=== PATIENT | female | born 1965 | race Caucasian/White ===

== ENCOUNTER 2017-08-04 16:20 | Emergency (ER) | payer MEDICARE, SELFPAY ==
[2017-08-04 16:21] VITALS: BP 157/89; PULSE 73; RESP 16; TEMP 36.7; O2SAT 99; BMI 29.4
--- NOTE | 2017-08-04 16:39 | CT_ITS ---
STUDY: CT ABDOMEN AND PELVIS WITHOUT CONTRAST REASON FOR EXAM: Female, 51 years old. Flank pain RADIATION DOSAGE (If Supplied By Facility): CTDIvol = ( 9.81 ) mGy, DLP = ( 478.01 ) mGycm TECHNIQUE: Transaxial images were obtained from the lower chest to the upper thighs without oral contrast, and without intravenous contrast. Sagittal and coronal images were reconstructed. Individualized dose optimization techniques were used for this CT. COMPARISON: June 30, 2016 FINDINGS: There is minimal dependent atelectasis in both lung bases. There is no pleural effusion. The heart is normal in size. The liver is unremarkable. The gallbladder and biliary ducts are unremarkable. The spleen is unremarkable. 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 The adrenal glands are unremarkable. The right kidney is unremarkable. There is no dilatation of the collecting system in the right kidney. The left kidney is unremarkable. There is no dilatation of the collecting system in the left kidney. There is a small hiatal hernia. The small bowel is unremarkable. The colon is unremarkable. The appendix is visualized and appears normal. The aorta and branch vessels are unremarkable. The IVC is unremarkable. There are small lymph nodes in the right lower quadrant. There are small lymph nodes in the mesentery. There is no free fluid in the abdomen. The urinary bladder is unremarkable. The uterus is normal in size. There are coarse calcifications in the uterus consistent with small degenerating fibroids. There are no abnormal masses in the adnexal regions. The soft tissues are unremarkable. There are mild degenerative changes in the visualized spine. There is stable minimal anterior displacement of L5 on S1 with defects in the pars at this level. There is marked disc space narrowing at this level. There is minimal dextroscoliosis of the lumbar spine. CT/Abdomen/Pelvis without Cont IMPRESSION: There is no evidence of renal stones or urinary tract dilatation. There are no acute bowel abnormalities. There is no ascites. There may be mild mesenteric adenitis in the right lower quadrant. 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 There are marked degenerative disc changes at this level. There is minimal dextroscoliosis of the lumbar spine. Electronically Signed: Mis Whitaker MD at 18:15 EST Tel Direct: [phone], Service support ,
--- NOTE | 2017-08-04 16:43 | ED.DCSUM_ITS ---
- ER Visit Summary Date of Service: 08/04/17 Chief Complaint: [] Left flank pain urinary symptoms for over a week History of Present Illness: The patient is a 51 F [] diabetes chronic back pain , reports that she has had urinary frequency for over a week she was seen by her family physicians put on Bactrim she has had left flank pain the Bactrim has not helped the back pain or the urinary frequency she indicates she has history of pyelonephritis in the past, and or kidney stones. Her family reports she has no history of kidney stones and she has chronic recurring back pain of unspecified causes and she has been very thoroughly evaluated for the back pain. No fever no cough no trauma no neurologic symptoms #6 paresthesias or bowel bladder habits have been normal he is able to stand and walk without difficulty her diabetes has been stable she is not on a diabetic diet she is taking her insulin and metformin Physical Examination: [] Points to her left flank her vitals are normal head neck chest unremarkable abdomen soft nontender upper lower extremities unremarkable the midline back is nontender she is complaining of pain to the left flank the abdomen Apsley soft nontender upper lower extremities unremarkable full range of motion she is able to stand and walk without difficulty she can heel toe raise and knee bend without difficulty there is no neurologic abnormalities, she indicates she is constantly running to the bathroom to urinate Test Results: [] Emergency Department Course and Treatment: [] Given all the above labs UA urine culture CT flank she has been on sulfa Her studies are generally unremarkable including CT of the flank that shows nothing acute, we had to reconstruct her lumbar spine images they were also showing DJD nothing acute, her labs are unremarkable except her UA does show signs of UTI and she has been on the Bactrim since , at this time I will switch her to oral Cipro she will be given [address] tablets to use only if Tylenol is ineffective and she will follow-up with her family doctor for further management and she understands that the urine culture is pending and the concept of pyelonephritis, we further cautioned her to stick to a diabetic diet Treatment Plan: [] Disposition: [] Home stable Impression: [] Flank pain suspect related UTI diabetes This note was generated with Big Screen Toolsation software. It may contain incorrect words, spelling, and punctuation that were not noted in review of the chart prior to signing ED Disposition - Plan for ED Patient: Chief Complaint: Back Referrals: Tom Clayton Jr., MD [Primary Care Provider] -
[2017-08-04] MEDS: Ondansetron 4 MG/2 ML Vial IV (17:06)
[2017-08-04 17:10] LABS: Absolute Lymphocyte Count 1.85 X10^3/ul (0.83-4.51); Absolute Neutrophil Count 2.9 X10^3/uL (2.0-7.7); Basophil# 0.03 X10^3/uL; Basophil% 0.6 % (0-1); Eosinophil# 0.06 X10^3/uL; Eosinophils% 1.1 % (0-5); Hemoglobin 11.9 g/dl (12.0-15.0); Lymphocyte # 1.85 X10^3/ul (4.0); Lymphocyte % 35.2 % (19-41); Mean Corp Hgb Conc 31.3 g/gl (32-36); Mean Corpuscular Hgb 27.9 pg (27.0-32.0); Mean Platelet Vol. 9.5 fl (6.2-12.0); Monocyte# 0.42 X10^3/uL; Neutrophil % 55.1 % (47-70); Platelet Count 285 K/mm3 (150-450); RBC Distribution Width CV 15.1 % (11.6-14.6); RBC Distribution Width SD 48.8 fl (35.1-43.9); Red Blood Count 4.27 M/mm3 (4.2-5.4); White Blood Count 5.3 K/mm3 (4.4-11.0)
[2017-08-04] MEDS: 0.9% Normal Saline 1,000 ML 250 ML IV (17:10)
[2017-08-04 17:11] LABS: POSITIVE COUNT NO; POSITIVE DIFFERENTIAL NO; POSITIVE MORPHOLOGY NO
[2017-08-04 17:28] LABS: Pregnancy, Serum, hCG Quali. NEGATIVE Negative (0-9 Nonpreg)
[2017-08-04 18:06] LABS: Color, Urine Yellow (Yellow); Glucose, Dipstick Normal (Normal); Ketone-Dipstick Negative (Negative); Leukocyte Esterase-Dipstick 500 /ul (Negative); Nitrite-Dipstick Negative (Negative); Occult Blood-Urine 10 /ul (Negative); Protein-Dipstick Negative (Negative); Urine Bilirubin Dipstick Negative (Negative); Urine Clarity Sl. Cloudy (Clear); Urine Urobilinogen Normal (Normal)
[2017-08-04 18:26] LABS: Anion Gap 8 (5-15); BUN 15 mg/dL (7-18); BUN/Creat Ratio 19.8 RATIO (10-20); Calcium,Total 9.5 mg/dL (8.5-10.1); Chloride 107 mmol/L (98-107); Creatinine, Serum 0.76 mg/dL (0.55-1.02); EST Glomerular Filtration Rate 85 mL/min (>60); Est Glom Filt Rate - Afr Amer 103 mL/min (>60); Estimated Creatinine Clearance 75.62 ml/min; Glucose 98 mg/dL (70-110); Potassium 3.9 mmol/L (3.5-5.1); Sodium Level 142 mmol/L (136-145)
[2017-08-04 18:28] LABS: Bacteria 1+ /hpf (None Seen); Red Blood Cells-Urine 0-5 SEEN /hpf (0-5); Squamous Epithelial Cells - UA 5-10 SEEN /hpf (5-10); White Blood Cells 10-25 SEEN /hpf (0-5)
[2017-08-04 18:29] LABS: Mucous, Urine RARE /hpf (<or=2+)
[2017-08-04 18:30] LABS: Yeast-Urine RARE /hpf (None Seen)
--- NOTE | 2017-08-04 18:41 | ED.DEP ---
ED Disposition - Plan for ED Patient: Chief Complaint: Back Instructions: ED Kidney Infec Female Prescriptions: Hydrocodone Bitart/Apap 5-325 [[facility] 5/325] 1 - 2 tab PO Q4H PRN PRN #7 tab PRN Reason: Pain Ciprofloxacin [Cipro] 500 mg PO BID #14 tab Referrals: Tom Clayton Jr., MD [Primary Care Provider] -
[2017-08-04 19:16] VITALS: BP 139/94; PULSE 81; RESP 17; O2SAT 98
--- NOTE | 2017-08-04 19:16 | ED.RN ---
IV DC'ED, CATHETER INTACT, SMALL GAUZE DRESSING PLACED. DISCHARGE INSTRUCTIONS GIVEN TO AND REVIEWED WITH PATIENT, PATIENT DENIES QUESTIONS OR CONCERNS AND VOICES UNDERSTANDING OF DISCHARGE INSTRUCTIONS. PT AMBULATES OUT OF ROOM WITHOUT DIFFICULTY.
== END 2017-08-04 19:17 | disposition home or self-care (01) ==
LOC: ED 16:57
PROVIDERS: Emergency Provider Emergency Medicine; Family Provider Internal Medicine; PCP Internal Medicine
DX: R10.9 Unspecified abdominal pain (principal); E11.9 Type 2 diabetes mellitus without complications; N12 Tubulo-interstitial nephritis, not specified as acute or chronic; M47.9 Spondylosis, unspecified; Z79.4 Long term (current) use of insulin
CPT/HCPCS: 74176; 80048; 81001; 82009; 84703; 85025; 87086; 87088; 96361; 96374; 96375; 96376; 99284; J7030; A4216; J2405

== ENCOUNTER → 2017-08-06 12:20 | Outpatient (CLI) | payer MEDICARE, SELFPAY ==
--- NOTE | 2017-08-06 12:25 | HPBI_ITS ---
MAMMOGRAPHY - BILATERAL SCREENING REASON FOR EXAM: Female, 51 years old. Routine annual screening examination. PERTINENT HISTORY: Non-contributory. TECHNIQUE: Digital bilateral breast saloni (3D mammographic acquisition) in the CC and MLO projections. 2-D mediolateral oblique (MLO) and craniocaudad (CC) views of both breasts were obtained. CAD: Full Field Digital Mammography with Computer Added Detection was performed. COMPARISON: Comparison is made with prior study dated October 22, 2014 and September 16, 2012. FINDINGS: Breast Composition: The breasts are heterogeneously dense, which may obscure small masses. There are no dominant masses or suspicious calcifications. No other significant abnormalities are identified. There has been no significant change since the prior study. HPBI/SCREENING MAMM (CAD), BILAT IMPRESSION: Stable bilateral screening mammogram. Yearly follow-up mammogram recommended. (A) ASSESSMENT CATEGORY: BIRADS Category 1: Negative. A letter regarding these results will be sent to the patient by the facility within 30 days. Approximately 10% of breast cancers are not detected by mammography. A normal mammogram should not delay biopsy of a clinically suspicious abnormality. [id number] Electronically Signed: Prosper Soliman MD at 14:35 EST Tel [phone], Service support ,
== END ==
PROVIDERS: Family Provider Internal Medicine; PCP Internal Medicine
DX: Z12.31 Encounter for screening mammogram for malignant neoplasm of breast (principal)
CPT/HCPCS: 77063; 77067

== ENCOUNTER → 2017-08-21 10:09 | Outpatient (CLI) | payer MEDICARE, SELFPAY ==
[2017-08-21 10:19] LABS: Mucous, Urine 0 SEEN /hpf (<or=2+); Red Blood Cells-Urine 0 SEEN /hpf (0-5)
[2017-08-21 11:09] LABS: Color, Urine Yellow (Yellow); Glucose, Dipstick 1000 mg/dl (Normal); Ketone-Dipstick Negative (Negative); Leukocyte Esterase-Dipstick 100 /ul (Negative); Nitrite-Dipstick Negative (Negative); Occult Blood-Urine 10 /ul (Negative); Protein-Dipstick 15 mg/dl (Negative); Urine Bilirubin Dipstick Negative (Negative); Urine Clarity Sl. Cloudy (Clear); Urine Urobilinogen Normal (Normal)
[2017-08-21 11:27] LABS: Bacteria RARE /hpf (None Seen); Squamous Epithelial Cells - UA 0-5 SEEN /hpf (5-10); White Blood Cells 0-5 SEEN /hpf (0-5); Yeast-Urine RARE /hpf (None Seen)
== END ==
PROVIDERS: Family Provider Internal Medicine; PCP Internal Medicine; Visit Provider Internal Medicine
DX: R39.9 Unspecified symptoms and signs involving the genitourinary system (principal)
CPT/HCPCS: 81001

== ENCOUNTER 2017-10-27 11:29 | Emergency (ER) | payer MEDICARE, SELFPAY ==
[2017-10-27 11:31] VITALS: BP 134/68; PULSE 106; RESP 17; TEMP 36.9; O2SAT 97; BMI 27.8
--- NOTE | 2017-10-27 11:48 | ED.DCSUM_ITS ---
- ER Visit Summary Date of Service: 10/27/17 Chief Complaint: High blood sugar History of Present Illness: The patient is a [address] Tom Clayton in [facility] for endocrinology. She reports that her blood sugars been elevated since yesterday. She took this morning and it was 438. She took 11 units of Humalog at 8 AM. Patient reports that she has frequent urination with small volumes and itching. Her review of systems is otherwise negative. Physical Examination: Vitals: Stable. Afebrile. General: Well-nourished and well-developed. Head: Normocephalic atraumatic. Neck: Supple, no lymphadenopathy. No JVD. Nontender. Cardiovascular: Regular rate and rhythm. No murmurs. Respiratory: No respiratory distress. Clear to auscultation bilaterally. Abdominal: Soft, nontender, nondistended, normal bowel sounds. No guarding, rebound, or peritoneal signs. Back: Nontender. Extremities: Nontender, no edema. Skin: Normal color, no rash. Neurologic: Alert and oriented ?3. Cranial nerves II through XII are intact. Normal strength and sensation. Psych: Normal affect. Test Results: CBC is normal. Chem-7 is marked for glucose of 253. UA is negative. Emergency Department Course and Treatment: Patient had an IV placed. She is given 2 L of normal saline. She is resting comfortably. Treatment Plan: Patient will be discharged instructions to continue her diabetic treatment and follow-up with her comb winder as previously scheduled. Return to the emergency department for any worsening symptoms. Disposition: To home in improved and stable condition. Impression: 1. Hyperglycemia. 2. Type 2 diabetes mellitus. This note was generated with [employer] dictation software. It may contain incorrect words, spelling, and punctuation that were not noted in review of the chart prior to signing ED Disposition - Plan for ED Patient: Chief Complaint: Hyperglycemia Instructions: ED Hyperglycemia Diabetic Referrals: Tom Clayton Jr., MD [Primary Care Provider] - Keep Radha appointment
[2017-10-27 12:10] LABS: Color, Urine Yellow (Yellow); Glucose, Dipstick 1000 mg/dl (Normal); Ketone-Dipstick Negative (Negative); Leukocyte Esterase-Dipstick 25 /ul (Negative); Mucous, Urine 0 SEEN /hpf (<or=2+); Nitrite-Dipstick Negative (Negative); Occult Blood-Urine Negative /ul (Negative); Protein-Dipstick 30 mg/dl (Negative); Red Blood Cells-Urine 0 SEEN /hpf (0-5); Urine Bilirubin Dipstick Negative (Negative); Urine Clarity Clear (Clear); Urine Urobilinogen Normal (Normal)
[2017-10-27 12:10] LABS: Bedside Glucose 259 mg/dL (70-110)
[2017-10-27 12:21] LABS: Bacteria RARE /hpf (None Seen); Squamous Epithelial Cells - UA 0-5 SEEN /hpf (5-10); White Blood Cells 0-5 SEEN /hpf (0-5)
[2017-10-27] MEDS: 0.9% Normal Saline 1,000 ML 1000 ML IV (12:24)
[2017-10-27 12:36] LABS: Absolute Lymphocyte Count 1.17 X10^3/ul (0.83-4.51); Absolute Neutrophil Count 3.6 X10^3/uL (2.0-7.7); Basophil# 0.02 X10^3/uL; Basophil% 0.4 % (0-1); Eosinophil# 0.02 X10^3/uL; Eosinophils% 0.4 % (0-5); Hematocrit 39.8 % (37-47); Hemoglobin 12.6 g/dl (12.0-15.0); Lymphocyte # 1.17 X10^3/ul (4.0); Lymphocyte % 22.6 % (19-41); Mean Corp Hgb Conc 31.7 g/gl (32-36); Mean Corpuscular Hgb 27.6 pg (27.0-32.0); Mean Corpuscular Volume 87.3 fL (81-99); Mean Platelet Vol. 9.2 fl (6.2-12.0); Monocyte# 0.35 X10^3/uL; Monocyte% 6.8 % (0-10); Neutrophil # 3.61 X10^3/uL (2.7-7.7); Neutrophil % 69.8 % (47-70); Platelet Count 297 K/mm3 (150-450); RBC Distribution Width CV 14.2 % (11.6-14.6); RBC Distribution Width SD 44.9 fl (35.1-43.9); Red Blood Count 4.56 M/mm3 (4.2-5.4); White Blood Count 5.2 K/mm3 (4.4-11.0)
[2017-10-27 12:38] LABS: POSITIVE COUNT NO; POSITIVE DIFFERENTIAL NO; POSITIVE MORPHOLOGY NO
--- NOTE | 2017-10-27 12:46 | ED.RN ---
AFTER FLUIDS D/C FOR LT AC, SWELLING HAS DECREASED, PT DOES NOT C/O PAIN AT THE SITE AT THIS TIME.
[2017-10-27 12:57] LABS: Anion Gap 6 (5-15); BUN 16 mg/dL (7-18); BUN/Creat Ratio 16.6 RATIO (10-20); Calcium,Total 9.1 mg/dL (8.5-10.1); Chloride 103 mmol/L (98-107); Creatinine, Serum 0.96 mg/dL (0.55-1.02); EST Glomerular Filtration Rate 65 mL/min (>60); Est Glom Filt Rate - Afr Amer 78 mL/min (>60); Glucose 253 mg/dL (74-106); Potassium 4.3 mmol/L (3.5-5.1); Sodium Level 136 mmol/L (136-145)
[2017-10-27 13:24] VITALS: BP 133/76; PULSE 89; RESP 16; O2SAT 99
== END 2017-10-27 13:27 | disposition home or self-care (01) ==
PROVIDERS: Emergency Provider Emergency Medicine; Family Provider Internal Medicine; PCP Internal Medicine
DX: E11.65 Type 2 diabetes mellitus with hyperglycemia (principal); Z79.4 Long term (current) use of insulin
CPT/HCPCS: 80048; 81001; 82962; 85025; 96360; 99284; J7030; A4216

== ENCOUNTER 2017-11-02 15:13 | Emergency (ER) | payer OTHER, SELFPAY ==
[2017-11-02 15:14] VITALS: BP 163/84; PULSE 101; RESP 20; TEMP 36.9; O2SAT 99; BMI 28.3
--- NOTE | 2017-11-02 15:32 | RAD_ITS ---
STUDY: X-RAY CHEST REASON FOR EXAM: Female, 52 years old. Hyperglycemia. TECHNIQUE: AP and lateral views of the chest. COMPARISON: August 23, 2016 FINDINGS: There is no focal consolidation visualized. There is a oblique linear density projecting over the left lung base that may be artifactual. Normal size heart. Normal mediastinum and nikolay. Normal visualized pulmonary arteries. Normal visualized aortic arch and descending thoracic aorta. There are diffuse degenerative changes of the visualized thoracic spine. Normal visualized ribs, clavicles, and shoulders. There is no demonstrated abnormality of the visualized soft tissue structures of the upper abdomen. RAD/Chest PA and Lateral IMPRESSION: No acute cardiopulmonary process. Electronically Signed: Tracey Mendoza MD at 17:40 EDT Tel , Service support ,
--- NOTE | 2017-11-02 15:32 | EKG12_ITS ---
Test Reason : HYPERGLYCEMIA Blood Pressure : / mmHG Vent. Rate : 098 BPM Atrial Rate : 098 BPM P-R Int : 144 ms QRS Dur : 078 ms QT Int : 338 ms P-R-T Axes : 039 028 061 degrees QTc Int : 431 ms Normal sinus rhythm Normal ECG Confirmed by VIRGILIO SCHAFER ([id number]), editor city NESTOR TUCKER ([id number]) on 11/06/2017 4:00:22 PM Referred By: CD Confirmed By:VIRGILIO SCHAFER
--- NOTE | 2017-11-02 15:33 | ED.VISSUMM ---
- ER Visit Summary Date of Service: 11/02/17 Chief Complaint: High blood glucose History of Present Illness: The patient is a 52 F with a history of diabetes type 2, insulin-dependent, presents with elevated blood glucose greater than 400 for 3 days as well as fatigue. No recent falls or head trauma. She states that the last time this happened, she had a urinary tract infection. She has no specific complaints at this time other than increased thirst and urination. Physical Examination: Mucous membranes are dry. Neck is supple. Heart tones are regular without murmur. Lungs are clear bilaterally. Abdomen is soft and nontender. No focal or lateralizing neuro findings. Speech is clear. NIH is 0. Test Results: Glucose was only 274 here. Anion gap is normal. No ketones in the serum. She was given IV fluids and feels much better. Two-view chest x-ray was interpreted independently by me is negative for acute infiltrate. She has a normal neurologic and mental status examination. She is comfortable going home and following up with her wildland fire operations specialist. Emergency Department Course and Treatment: IV fluids and laboratory studies Treatment Plan: Follow up closely with endocrinology, return if worse Disposition: Home stable Impression: Initial encounter for hyperglycemia with a history of type 2 diabetes This note was generated with [employer] dictation software. It may contain incorrect words, spelling, and punctuation that were not noted in review of the chart prior to signing ED Disposition - Plan for ED Patient: Chief Complaint: Hyperglycemia Diagnosis: Hyperglycemia Instructions: ED Hyperglycemia Diabetic Referrals: Tom Clyaton Jr., MD [Primary Care Provider] -
--- NOTE | 2017-11-02 15:45 | ED.RN ---
FAMILY REFUSES TO KEEP DOOR CLOSED.
[2017-11-02 15:55] LABS: Bedside Glucose 290 mg/dL (70-110)
[2017-11-02 16:14] LABS: Absolute Lymphocyte Count 1.76 X10^3/ul (0.83-4.51); Absolute Neutrophil Count 3.6 X10^3/uL (2.0-7.7); Basophil# 0.03 X10^3/uL; Basophil% 0.5 % (0-1); Eosinophil# 0.05 X10^3/uL; Eosinophils% 0.9 % (0-5); Hematocrit 40.3 % (37-47); Hemoglobin 12.5 g/dl (12.0-15.0); Lymphocyte # 1.76 X10^3/ul (4.0); Lymphocyte % 30.2 % (19-41); Mean Corpuscular Hgb 27.3 pg (27.0-32.0); Mean Platelet Vol. 9.6 fl (6.2-12.0); Monocyte% 6.9 % (0-10); Neutrophil # 3.57 X10^3/uL (2.7-7.7); Neutrophil % 61.3 % (47-70); Platelet Count 324 K/mm3 (150-450); RBC Distribution Width CV 14.7 % (11.6-14.6); Red Blood Count 4.58 M/mm3 (4.2-5.4); White Blood Count 5.8 K/mm3 (4.4-11.0)
[2017-11-02] MEDS: 0.9% Normal Saline 1,000 ML 999 ML IV (16:32)
[2017-11-02 16:33] LABS: POSITIVE COUNT NO; POSITIVE DIFFERENTIAL NO; POSITIVE MORPHOLOGY NO
--- NOTE | 2017-11-02 16:38 | ED.RN ---
FAMILY CONTINUES TO COMPLAIN ABOUT STAFF AT [facility].
[2017-11-02 16:42] LABS: Anion Gap 5 (5-15); BUN 10 mg/dL (7-18); BUN/Creat Ratio 10.9 RATIO (10-20); Calcium,Total 9.1 mg/dL (8.5-10.1); Chloride 104 mmol/L (98-107); Creatinine, Serum 0.92 mg/dL (0.55-1.02); EST Glomerular Filtration Rate 68 mL/min (>60); Est Glom Filt Rate - Afr Amer 82 mL/min (>60); Estimated Creatinine Clearance 61.77 ml/min; Glucose 274 mg/dL (74-106); Potassium 4.2 mmol/L (3.5-5.1); Sodium Level 138 mmol/L (136-145)
[2017-11-02 17:08] LABS: Bacteria 0 SEEN /hpf (None Seen); Mucous, Urine 0 SEEN /hpf (<or=2+); Red Blood Cells-Urine 0 SEEN /hpf (0-5)
[2017-11-02 17:09] LABS: Color, Urine Yellow (Yellow); Glucose, Dipstick 1000 mg/dl (Normal); Ketone-Dipstick Negative (Negative); Leukocyte Esterase-Dipstick 500 /ul (Negative); Nitrite-Dipstick Negative (Negative); Occult Blood-Urine Negative /ul (Negative); Protein-Dipstick 15 mg/dl (Negative); Urine Bilirubin Dipstick Negative (Negative); Urine Clarity Sl. Cloudy (Clear); Urine Urobilinogen Normal (Normal)
[2017-11-02 17:21] LABS: Squamous Epithelial Cells - UA 10-25 SEEN /hpf (5-10); White Blood Cells 5-10 SEEN /hpf (0-5)
[2017-11-02 18:07] VITALS: BP 136/89; PULSE 87; RESP 16; O2SAT 98
== END 2017-11-02 18:24 | disposition home or self-care (01) ==
PROVIDERS: Emergency Provider Emergency Medicine; Family Provider Internal Medicine; PCP Internal Medicine
DX: E11.65 Type 2 diabetes mellitus with hyperglycemia (principal); Z79.4 Long term (current) use of insulin; I10 Essential (primary) hypertension; E78.00 Pure hypercholesterolemia, unspecified; Z79.891 Long term (current) use of opiate analgesic; Z79.899 Other long term (current) drug therapy
CPT/HCPCS: 71046; 80048; 81001; 82009; 82962; 85025; 93005; 96360; 96361; 99285; J7030; A4216

== ENCOUNTER 2018-01-31 13:44 | Emergency (ER) | payer OTHER, SELFPAY ==
[2018-01-31 13:45] VITALS: BP 137/81; PULSE 93; RESP 18; TEMP 37.1; O2SAT 98; BMI 26.5
--- NOTE | 2018-01-31 13:51 | EKG12_ITS ---
Test Reason : C OTHER Blood Pressure : / mmHG Vent. Rate : 088 BPM Atrial Rate : 088 BPM P-R Int : 136 ms QRS Dur : 078 ms QT Int : 366 ms P-R-T Axes : 042 021 050 degrees QTc Int : 442 ms Normal sinus rhythm Normal ECG Confirmed by VIRIDIANA REY, ALBERTO ([id number]), associate entertainment editor NESTOR TUCKER ([id number]) on 02/05/2018 2:46:58 PM Referred By: MIKEL Confirmed By:ALBERTO KEMP MD
--- NOTE | 2018-01-31 14:45 | ED.DCSUM_ITS ---
- ER Visit Summary Date of Service: 01/31/18 Chief Complaint: Bilateral lower rib upper abdominal pain after vomiting History of Present Illness: The patient is a 52 F who presents with bilateral lower rib upper abdominal pain after vomiting several times this past Sunday. There is no hematemesis or melena. She denies any URI symptoms. She denies chest discomfort. She denies food intolerance. She denies radiation of the pain. She denies shortness of breath or difficulty breathing. She is taken 1 Advil without improvement. She states nothing makes it worse however on exam she has pain when asked to twist and palpation. She denies dysuria, frequency, urgency or hematuria. There is no history of direct trauma. She has not noted a rash. Physical Examination: Vital signs are remarkable for an elevated blood pressure 137/81. HEENT exam is unremarkable. Heart is regular without murmur, gallop or rub. S1 and S2 are normal. Lungs are clear to auscultation with good movement of air bilaterally. There is reproducible low or rib cage pains upper abdominal musculoskeletal pain. Pain is worse with palpation and rotation. Negative Roberts sign. Bowel sounds are present normal. There is no guarding or rebound tenderness. There is no CVA tenderness noted. There is no skin lesions or any lesions to suggest herpes varicella-zoster. She has not no evidence of trauma. Test Results: EKG was obtained per nursing protocol and is normal. Emergency Department Course and Treatment: Patient's history and physical exam is consistent with muscle strain from vomiting. Treatment Plan: Ibuprofen or Tylenol for pain and ice Disposition: Discharged home with mother Impression: Chest wall/abdominal wall strain bilaterally secondary to vomiting This note was generated with [employer] dictation software. It may contain incorrect words, spelling, and punctuation that were not noted in review of the chart prior to signing ED Disposition - Plan for ED Patient: Disposition: Home or Assisted Living Chief Complaint: Chest Other Instructions: ED Strain Chest Wall Referrals: Tom Clayton Jr., MD [Primary Care Provider] - 1 Week if not improving Additional Instructions: Take 3 or 4 ibuprofen tablets every 8 hours for the next 2-3 days for pain. Apply ice 20-30 minutes at a time 6-8 times a day.
[2018-01-31 14:47] VITALS: BP 135/74; PULSE 104; RESP 19; O2SAT 96
[2018-01-31] MEDS: Ibuprofen 600 MG Tablet PO (14:51)
== END 2018-01-31 15:04 | disposition home or self-care (01) ==
PROVIDERS: Emergency Provider Emergency Medicine; Family Provider Internal Medicine; PCP Internal Medicine
DX: S39.011A Strain of muscle, fascia and tendon of abdomen, initial encounter (principal); S29.011A Strain of muscle and tendon of front wall of thorax, initial encounter; R11.10 Vomiting, unspecified; E66.9 Obesity, unspecified; E11.9 Type 2 diabetes mellitus without complications; E78.00 Pure hypercholesterolemia, unspecified; F41.9 Anxiety disorder, unspecified; Z79.4 Long term (current) use of insulin; Z79.899 Other long term (current) drug therapy; X58.XXXA Exposure to other specified factors, initial encounter; Y93.89 Activity, other specified; Y92.89 Other specified places as the place of occurrence of the external cause; Y99.8 Other external cause status
CPT/HCPCS: 93005; 99283

== ENCOUNTER 2018-03-01 12:26 | Emergency (ER) | payer OTHER, SELFPAY ==
[2018-03-01 12:27] VITALS: BP 125/70; PULSE 105; RESP 16; TEMP 37; O2SAT 99; BMI 26.2
--- NOTE | 2018-03-01 12:51 | ED.VISSUMM ---
- ER Visit Summary Date of Service: 03/01/18 Chief Complaint: Sore throat, runny nose, cough History of Present Illness: The patient is a 52 F who presents with URI symptoms that started 1 week ago. She denies headache, photophobia sips of her neck. She is coming of nasal congestion runny nose. Does complain of sore throat. She believes she has an inflamed lymph node. There is been no change in voice or difficulty swallowing. She does have a cough. She states occasionally she will see a streak of blood. There is no history of PE or DVT. She denies any leg pain, swelling discoloration. She is on no anticoagulant. She has no risk factors for PE or DVT. Please read written note for complete detail Physical Examination: Vital signs noted and heart rate is 105. She appears no distress. HEENT is remarkable for boggy nasal mucosa with clear drainage. TMs normal. Posterior pharynx without erythema or exudate. Uvula midline. Trachea midline. Is no stridor. There is no cervical lymphadenopathy. Lungs are clear to auscultation with good maneuver bilaterally heart is regular without murmur, gallop or rub. There is no asymmetry, swelling, discoloration, leg vein distention, palpable cords or tenderness along the distribution of the deep venous system. Test Results: None Emergency Department Course and Treatment: Patient's presentation is consistent with a viral infection that started 1 week ago. Both the patient and mother were informed that she may be ill for another 7-10 days. Because she has been coughing she may have popped a blood vessel and reason she is occasionally seen streak of blood in her sputum. Treatment Plan: Symptomatic Disposition: Discharged home with mother Impression: 1. Acute viral upper restaurant infection 2. Hemoptysis secondary #1 This note was generated with [employer] dictation software. It may contain incorrect words, spelling, and punctuation that were not noted in review of the chart prior to signing ED Disposition - Plan for ED Patient: Disposition: Home or Assisted Living Chief Complaint: Sore Throat Instructions: ED URI Viral, ED Hemoptysis Referrals: Tom Clayton Jr., MD [Primary Care Provider] - 10-14 Days if not better
[2018-03-01 13:30] VITALS: PULSE 84; RESP 22; O2SAT 97
--- NOTE | 2018-03-01 13:32 | ED.RN ---
THIS NURSE REVIEWED D/C INSTRUCTIONS WITH PT AND MOTHER. BOTH VERBALIZED UNDERSTANDING OF INSTRUCTIONS. PT DENIES FURTHER NEEDS OR QUESTIONS AT THIS TIME. PT AMBULATES FROM ROOM ON OWN WITHOUT ASSISTANCE FROM STAFF
== END 2018-03-01 13:33 | disposition home or self-care (01) ==
PROVIDERS: Emergency Provider Emergency Medicine; Family Provider Internal Medicine; PCP Internal Medicine
DX: J06.9 Acute upper respiratory infection, unspecified (principal); R04.2 Hemoptysis; E11.9 Type 2 diabetes mellitus without complications; I10 Essential (primary) hypertension; E78.00 Pure hypercholesterolemia, unspecified; Z79.4 Long term (current) use of insulin; Z79.899 Other long term (current) drug therapy
CPT/HCPCS: 99282

== ENCOUNTER 2018-04-10 15:59 | Emergency (ER) | payer MEDICARE, SELFPAY ==
[2018-04-10 16:00] VITALS: BP 129/72; PULSE 98; RESP 16; TEMP 36.7; O2SAT 98; BMI 27.0
--- NOTE | 2018-04-10 16:17 | ED.VISSUMM ---
- ER Visit Summary Date of Service: 04/10/18 Chief Complaint: Elevated blood sugars History of Present Illness: The patient is a 52 F diabetes. Patient states that she has had elevated blood sugars intermittently about the week. She denies any nausea, vomiting, and she denies any fever. She denies any headache, chest pain, shortness of breath. They had previously attempted her on a insulin drip when she had a reaction to and they had to DC. She denies any recent dietary or medication changes. Physical Examination: Middle-aged female no acute distress. Vital signs are stable afebrile. She does not look septic toxic or in acute distress. HEENT exam unremarkable. Moist mucous membranes. Neck nontender no lymphadenopathy. Lungs clear to auscultation bilaterally. Heart regular rhythm no murmur. Abdomen soft nontender. Normal bowel sounds. No peritoneal signs. She is moving all 4 extremities. No edema. Neurologically she is awake and alert with no focal motor deficits. Back nontender. Test Results: With a white count of 5. Hemoglobin of 12. Electrolytes unremarkable gap of 6. Creatinine is 0.9. Glucose 159. Serum acetone negative. Emergency Department Course and Treatment: Diabetic with poorly controlled blood sugars in the last week. No systemic symptoms. She will be evaluated to make sure she is not in DKA which I think is very unlikely clinically. 17:30. She and family felt comfortable with her being discharged to home. Treatment Plan: [] Watch blood sugars closely. Take medications as prescribed. Disposition: Discharge Impression: Acute hyperglycemia with a history of insulin dependent diabetes This note was generated with K[employer]uru dictation software. It may contain incorrect words, spelling, and punctuation that were not noted in review of the chart prior to signing ED Disposition - Plan for ED Patient: Chief Complaint: Hyperglycemia Referrals: Tom Clayton Jr., MD [NON-STAFF] -
[2018-04-10] MEDS: 0.9% Normal Saline 1,000 ML 1000 ML IV (16:34)
[2018-04-10 16:51] LABS: Bedside Glucose 165 mg/dL (70-110)
[2018-04-10 17:17] LABS: Absolute Lymphocyte Count 1.26 X10^3/ul (0.83-4.51); Absolute Neutrophil Count 3.4 X10^3/uL (2.0-7.7); Basophil# 0.03 X10^3/uL; Basophil% 0.6 % (0-1); Eosinophil# 0.05 X10^3/uL; Hematocrit 38.4 % (37-47); Hemoglobin 12.2 g/dl (12.0-15.0); Lymphocyte # 1.26 X10^3/ul (4.0); Lymphocyte % 24.4 % (19-41); Mean Corp Hgb Conc 31.8 g/gl (32-36); Mean Corpuscular Hgb 27.4 pg (27.0-32.0); Mean Corpuscular Volume 86.1 fL (81-99); Mean Platelet Vol. 9.9 fl (6.2-12.0); Monocyte# 0.41 X10^3/uL; Monocyte% 7.9 % (0-10); Neutrophil # 3.41 X10^3/uL (2.7-7.7); Neutrophil % 65.9 % (47-70); Platelet Count 316 K/mm3 (150-450); RBC Distribution Width CV 16.5 % (11.6-14.6); Red Blood Count 4.46 M/mm3 (4.2-5.4); White Blood Count 5.2 K/mm3 (4.4-11.0)
[2018-04-10 17:18] LABS: Anion Gap 6 (5-15); BUN 27 mg/dL (7-18); BUN/Creat Ratio 28.7 RATIO (10-20); Calcium,Total 8.8 mg/dL (8.5-10.1); Chloride 108 mmol/L (98-107); Creatinine, Serum 0.94 mg/dL (0.55-1.02); EST Glomerular Filtration Rate 66 mL/min (>60); Est Glom Filt Rate - Afr Amer 80 mL/min (>60); Estimated Creatinine Clearance 60.45 ml/min; Glucose 159 mg/dL (74-106); Potassium 3.9 mmol/L (3.5-5.1); Sodium Level 141 mmol/L (136-145)
[2018-04-10 17:25] LABS: POSITIVE COUNT NO; POSITIVE DIFFERENTIAL NO; POSITIVE MORPHOLOGY NO
--- NOTE | 2018-04-10 17:34 | ED.DEP ---
ED Disposition - Plan for ED Patient: Disposition: Home or Assisted Living Chief Complaint: Hyperglycemia Instructions: ED Hyperglycemia Diabetic Referrals: Tom Clayton Jr., MD [NON-STAFF] - 3-5 Days if not improving Additional Instructions: Plenty of fluids and rest. Watch blood sugars closely. Follow-up with your doctor.
[2018-04-10 17:43] VITALS: BP 133/69; PULSE 72; RESP 15; O2SAT 98
== END 2018-04-10 17:44 | disposition home or self-care (01) ==
PROVIDERS: Emergency Provider Emergency Medicine; Family Provider Family Medicine; PCP Family Medicine
DX: E11.65 Type 2 diabetes mellitus with hyperglycemia (principal); Z79.82 Long term (current) use of aspirin; Z79.4 Long term (current) use of insulin; Z79.84 Long term (current) use of oral hypoglycemic drugs; Z79.899 Other long term (current) drug therapy
CPT/HCPCS: 80048; 82009; 82962; 85025; 99283; J7030

== ENCOUNTER 2018-04-29 23:44 | Emergency (ER) | payer MEDICARE, SELFPAY ==
[2018-04-29 23:47] VITALS: BP 129/97; PULSE 100; RESP 18; TEMP 36.8; O2SAT 98; BMI 26.9
[2018-04-30] LABS: Bedside Glucose 229 mg/dL (70-110)
--- NOTE | 2018-04-30 00:11 | ED.VISSUMM ---
- ER Visit Summary Date of Service: 04/30/18 Chief Complaint: Hyperglycemia History of Present Illness: The patient is a 52 F presenting with elevated blood sugar. Patient states her blood sugar has been running 200-300 today. She has urinary frequency. She denies nausea or vomiting. Denies abdominal pain. Denies chest pain or shortness of breath. She otherwise feels well. She states her Lantus was recently decreased from 16 units to 14 units. She takes regular insulin 3 times a day. She is followed by endocrinology in [place]. Physical Examination: Vitals are stable. Patient is afebrile. Alert no acute distress. HEENT exam is unremarkable. Neck is supple. Lungs are clear and equal bilaterally. Heart is regular rate and rhythm. Abdomen is soft nontender nondistended. Extremities are unremarkable. Skin is warm and dry. No focal neurologic deficit. Remainder of exam is unremarkable. Emergency Department Course and Treatment: Patient given IV fluids. Initial BGT 229, repeat BGT 167. BMP normal except for glucose 202, BUN 19. Urinalysis shows 0-5 white cells. Patient is resting comfortably on reevaluation. She has appointment with her PCP scheduled tomorrow. She is advised to keep this appointment. Advised return to ED if worsening complaints. Disposition: Discharge home Impression: Hyperglycemia This note was generated with [employer] dictation software. It may contain incorrect words, spelling, and punctuation that were not noted in review of the chart prior to signing ED Disposition - Plan for ED Patient: Chief Complaint: Hyperglycemia Instructions: ED Hyperglycemia Diabetic Referrals: Servando Yang DO [Primary Care Provider] -
[2018-04-30] MEDS: 0.9% Normal Saline 1,000 ML 1000 ML IV (00:20)
[2018-04-30 00:26] LABS: Mucous, Urine 0 SEEN /hpf (<or=2+); Red Blood Cells-Urine 0 SEEN /hpf (0-5)
[2018-04-30 00:27] LABS: Color, Urine Yellow (Yellow); Glucose, Dipstick 1000 mg/dl (Normal); Ketone-Dipstick Negative (Negative); Leukocyte Esterase-Dipstick 25 /ul (Negative); Nitrite-Dipstick Negative (Negative); Occult Blood-Urine Negative /ul (Negative); Protein-Dipstick Negative (Negative); Specific Gravity, Urine 1.015 (1.002-1.030); Urine Bilirubin Dipstick Negative (Negative); Urine Clarity Sl. Cloudy (Clear); Urine Urobilinogen Normal (Normal); Urine pH 6.5 (5.0 - 8.0)
[2018-04-30 00:33] LABS: Anion Gap 8 (5-15); BUN 19 mg/dL (7-18); BUN/Creat Ratio 24.5 RATIO (10-20); Calcium,Total 9.4 mg/dL (8.5-10.1); Chloride 104 mmol/L (98-107); Creatinine, Serum 0.78 mg/dL (0.55-1.02); EST Glomerular Filtration Rate 83 mL/min (>60); Est Glom Filt Rate - Afr Amer 100 mL/min (>60); Estimated Creatinine Clearance 72.86 ml/min; Glucose 202 mg/dL (74-106); Sodium Level 140 mmol/L (136-145)
[2018-04-30 00:44] LABS: White Blood Cells 0-5 SEEN /hpf (0-5)
[2018-04-30 00:45] LABS: Bacteria RARE /hpf (None Seen); Squamous Epithelial Cells - UA 0-5 SEEN /hpf (5-10); Yeast-Urine RARE /hpf (None Seen)
--- NOTE | 2018-04-30 01:16 | ED.DEP ---
ED Disposition - Plan for ED Patient: Chief Complaint: Hyperglycemia Instructions: ED Hyperglycemia Diabetic Referrals: Servando Yang DO [Primary Care Provider] -
[2018-04-30 01:20] LABS: Bedside Glucose 167 mg/dL (70-110)
[2018-04-30 01:26] VITALS: BP 130/85; PULSE 78; RESP 14; O2SAT 98
== END 2018-04-30 01:26 | disposition home or self-care (01) ==
PROVIDERS: Emergency Provider Emergency Medicine; Family Provider Family Medicine; PCP Family Medicine
DX: E11.65 Type 2 diabetes mellitus with hyperglycemia (principal); Z79.4 Long term (current) use of insulin; Z79.82 Long term (current) use of aspirin; Z79.899 Other long term (current) drug therapy
CPT/HCPCS: 80048; 81001; 82962; 96360; 99284; J7030; A4216

== ENCOUNTER 2018-05-06 17:43 | Emergency (ER) | payer MEDICARE, MEDICAID, SELFPAY ==
[2018-05-06 17:49] VITALS: BP 165/90; PULSE 98; RESP 18; TEMP 37; O2SAT 98; BMI 25.4
[2018-05-06 17:55] LABS: Bedside Glucose 334 mg/dL (70-110)
--- NOTE | 2018-05-06 18:01 | ED.VISSUMM ---
- ER Visit Summary Date of Service: 05/06/18 Chief Complaint: Hyperglycemia History of Present Illness: The patient is a 52 F presenting due to hyperglycemia. The patient is a insulin-dependent diabetic. She takes 14 units of Lantus in the morning and then 3 units of Humalog with breakfast 5 units at lunch and 5 units at dinner. Patient reports over the course last week she has had blood sugars running in the 3-400 range. She denies any other associated symptoms on review of systems. Patient has a follow-up appointment coming with her abrasive mixer helper coming next month. Physical Examination: Vital signs are within normal limits, patient is afebrile. General: Patient is well-nourished well-developed and in no acute distress. Head: Normocephalic, atraumatic Eyes: Pupils equal round and reactive bilaterally, extra occular motion intact bialterally ENT: Moist mucous membranes Neck: Supple, no lymphadenopathy, no JVD, no meningismus CVS: Heart regular rate and rhythm, no murmurs, rubs or gallops, radial pulses 2+ bilaterally Resp: Respirations nondistressed, lung sounds clear bilaterally Abdomen: Soft, nontender, nondistended, no palpable masses, normal bowel sounds Back: Nontender Extremities: Nontender, atraumatic, active full range of motion, no peripheral edema Skin: warm, no rashes, no petechia Neuro: Alert and oriented x 4, CN 2-12 intact, no lateralizing neurological defecits Psyc: Normal affect Test Results: BG T is 334, urinalysis shows no evidence of ketones does show a large amount of glucose and has a normal specific gravity Emergency Department Course and Treatment: Patient presented with hyperglycemia. Patient has had multiple prior presentations like this. She is not tachycardic, not tachypneic, she has moist mucous membranes. She has a blood sugar in the 300s and has no ketones. I do not believe that lab work is indicated. I will make adjustments to the patient's insulin regimen by increasing her morning Humalog to 5 units and her Lantus back up to 16 units. She was recommended that she needs to follow-up as soon as possible with her abrasive mixer helper. Disposition: Discharge Impression: 1. Hyperglycemia This note was generated with [employer] dictation software. It may contain incorrect words, spelling, and punctuation that were not noted in review of the chart prior to signing ED Disposition - Plan for ED Patient: Disposition: Home or Assisted Living Chief Complaint: Hyperglycemia Diagnosis: Hyperglycemia Instructions: ED Hyperglycemia Diabetic Referrals: Servando Yang DO [Primary Care Provider] - Additional Instructions: Increase your Lantus to 16 units at night. Take your Humalog 5 units with breakfast, 5 units with lunch, 5 units with dinner Follow-up with your abrasive mixer helper as soon as possible
[2018-05-06 18:08] LABS: Bacteria 0 SEEN /hpf (None Seen); Red Blood Cells-Urine 0 SEEN /hpf (0-5)
[2018-05-06 18:19] LABS: Color, Urine Yellow (Yellow); Glucose, Dipstick 1000 mg/dl (Normal); Ketone-Dipstick Negative (Negative); Leukocyte Esterase-Dipstick 100 /ul (Negative); Nitrite-Dipstick Negative (Negative); Occult Blood-Urine Negative /ul (Negative); Protein-Dipstick Negative (Negative); Urine Bilirubin Dipstick Negative (Negative); Urine Clarity Sl. Cloudy (Clear); Urine Urobilinogen Normal (Normal)
[2018-05-06 18:54] LABS: Mucous, Urine RARE /hpf (<or=2+); Squamous Epithelial Cells - UA 0-5 SEEN /hpf (5-10); White Blood Cells 0-5 SEEN /hpf (0-5)
== END 2018-05-06 18:54 | disposition home or self-care (01) ==
PROVIDERS: Emergency Provider Emergency Medicine; Family Provider Family Medicine; PCP Family Medicine
DX: E11.65 Type 2 diabetes mellitus with hyperglycemia (principal); Z79.4 Long term (current) use of insulin; Z79.899 Other long term (current) drug therapy
CPT/HCPCS: 81001; 82962; 99283

== ENCOUNTER → 2018-08-12 09:56 | Outpatient (CLI) | payer MEDICARE, SELFPAY ==
[2018-08-12 10:45] LABS: Microalbumin,Random Urine 22.6 mg/L (NO RANGE EST.)
[2018-08-12 10:50] LABS: AST(SGOT) 20 U/L (15-37); Alanine Aminotransfer ALT/SGPT 23 U/L (13-56); Anion Gap 7 (5-15); BUN 22 mg/dL (7-18); BUN/Creat Ratio 29.6 RATIO (10-20); Calcium,Total 8.9 mg/dL (8.5-10.1); Chloride 109 mmol/L (98-107); Cholesterol 119 mg/dL (200); Creatinine, Serum 0.74 mg/dL (0.55-1.02); EST Glomerular Filtration Rate 87 mL/min (>60); Est Glom Filt Rate - Afr Amer 105 mL/min (>60); Glucose 78 mg/dL (74-106); High Density Lipoprotein 51 mg/dL; Sodium Level 142 mmol/L (136-145); Triglycerides 82 mg/dL; Very Low Density Lipoprotein 16 mg/dL (5-40)
[2018-08-12 10:54] LABS: Hemoglobin A1c 6.5 % (4.2-6.3)
[2018-08-12 10:59] LABS: Vitamin D,25 Hydroxy 101.3 ng/mL (29.95-100.01)
== END ==
PROVIDERS: Family Provider Family Medicine; PCP Family Medicine; Referring Provider Nurse Practitioner Adult Health; Visit Provider Nurse Practitioner Adult Health
DX: E11.65 Type 2 diabetes mellitus with hyperglycemia (principal); E55.9 Vitamin D deficiency, unspecified
CPT/HCPCS: 36415; 80048; 80061; 82043; 82306; 83036; 84450; 84460

== ENCOUNTER → 2018-10-04 11:09 | Outpatient (CLI) | payer MEDICARE, SELFPAY ==
[2018-10-04 12:06] LABS: Hemoglobin A1c 6.5 % (4.2-6.3)
[2018-10-04 12:21] LABS: Vitamin D,25 Hydroxy 61.7 ng/mL (29.95-100.01)
[2018-10-04 12:23] LABS: BUN 19 mg/dL (7-18); Creatinine, Serum 0.81 mg/dL (0.55-1.02); Glucose 147 mg/dL (74-106)
[2018-10-04 12:24] LABS: AST(SGOT) 15 U/L (15-37); Alanine Aminotransfer ALT/SGPT 27 U/L (13-56); Anion Gap 5 (5-15); BUN/Creat Ratio 23.5 RATIO (10-20); Calcium,Total 8.9 mg/dL (8.5-10.1); Chloride 106 mmol/L (98-107); Cholesterol 127 mg/dL (200); EST Glomerular Filtration Rate 79 mL/min (>60); Est Glom Filt Rate - Afr Amer 95 mL/min (>60); High Density Lipoprotein 47 mg/dL; Sodium Level 140 mmol/L (136-145); Triglycerides 95 mg/dL; Very Low Density Lipoprotein 19 mg/dL (5-40)
== END ==
PROVIDERS: Family Provider Family Medicine; PCP Family Medicine; Referring Provider Nurse Practitioner Adult Health; Visit Provider Nurse Practitioner Adult Health
DX: E11.65 Type 2 diabetes mellitus with hyperglycemia (principal); E55.9 Vitamin D deficiency, unspecified
CPT/HCPCS: 36415; 80048; 80061; 82043; 82306; 83036; 84450; 84460

== ENCOUNTER 2018-12-08 19:13 | Emergency (ER) | payer MEDICARE, MEDICAID, SELFPAY ==
[2018-12-08 19:15] VITALS: BP 173/93; PULSE 96; RESP 16; TEMP 36.6; O2SAT 97; BMI 27.2
[2018-12-08 19:20] LABS: Bedside Glucose 140 mg/dL (70-110)
--- NOTE | 2018-12-08 20:12 | ED.DEP ---
ED Disposition - Plan for ED Patient: Instructions: ED Hyperglycemia Diabetic Referrals: Servando Yang DO [Primary Care Provider] -
--- NOTE | 2018-12-08 20:14 | ED.VISSUMM ---
- ER Visit Summary Date of Service: 12/08/18 Chief Complaint: High blood sugar History of Present Illness: The patient is a 53 F presenting with elevated blood sugar. She states she checked her blood sugar at home and it was 666. She took 21 units of Humalog. She then presented to the emergency department. She states she had a gradual onset frontal headache earlier today. She denies trauma. She has had a history of previous headaches. She denies nausea or vomiting. Denies fever. Denies other complaints. Physical Examination: Vitals are stable. Patient is afebrile. Alert no acute distress. HEENT exam is unremarkable. Neck is supple. No meningismus Lungs are clear and equal bilaterally. Heart is regular rate and rhythm. Abdomen is soft nontender nondistended. Extremities are unremarkable. Skin is warm and dry. No focal neurologic deficit. Remainder of exam is unremarkable. Emergency Department Course and Treatment: BGT 140. Patient declined medication for her headache. She declined blood work or imaging. She would like to go home. Repeat blood sugar is 125. She is advised to follow-up with her primary care physician. She is advised to return to ED for worsening complaints. Disposition: Discharge home Impression: Hyperglycemia This note was generated with [employer] dictation software. It may contain incorrect words, spelling, and punctuation that were not noted in review of the chart prior to signing ED Disposition - Plan for ED Patient: Disposition: Home or Assisted Living Instructions: ED Hyperglycemia Diabetic Referrals: Servando Yang DO [Primary Care Provider] -
[2018-12-08 20:27] VITALS: BP 144/83; PULSE 83; RESP 16; O2SAT 96
[2018-12-08 20:31] LABS: Bedside Glucose 125 mg/dL (70-110)
== END 2018-12-08 20:28 | disposition home or self-care (01) ==
PROVIDERS: Emergency Provider Emergency Medicine; Family Provider Family Medicine; PCP Family Medicine
DX: E11.65 Type 2 diabetes mellitus with hyperglycemia (principal); Z79.4 Long term (current) use of insulin
CPT/HCPCS: 82962; 99282

== ENCOUNTER 2018-12-18 17:42 | Emergency (ER) | payer MEDICARE, MEDICAID, SELFPAY ==
[2018-12-18 17:43] VITALS: BP 167/90; PULSE 106; RESP 16; TEMP 36.4; O2SAT 100; BMI 25.0
--- NOTE | 2018-12-18 19:13 | ED.VIS.GEN ---
History of Present Illness Chief Complaint: Hyperglycemia Informant: Patient Onset: Today Narrative: Patient states she has felt malaise and tired today. She has had urinary frequency for multiple days, her blood sugar measured 600 on her machine after lunch today. She states she ate a salad. Before that it was 3 or 400 she does not remember, yesterday it was in the 300s. She has not missed any of her insulin or oral diabetes medications. She denies any other symptoms and has had no recent illness that she knows of. Took a large dose of insulin prior to coming here, now she is registering in the 200s. - Past Medical History (1) Diabetes mellitus, type II Status: Chronic (2) Hiatal hernia Status: Chronic (3) Hyperlipidemia Status: Chronic (4) Hypertension Status: Chronic (5) Anxiety disorder Status: Chronic Past Medical History - Allergies and Home Meds Allergies/Adverse Reactions: Allergies amoxicillin Allergy (Verified 05/06/18 17:49) Itching dulaglutide [From Trulicity] Allergy (Verified 05/06/18 17:49) Itching Primary Care Physician: Servando Yang DO [Primary Care Provider] - Surgical History: no surgical history Lives: With Family Smoking Status: Never smoker - Family History Maternal Family History: Reports: Diabetes, Heart Disease, Hypertension Paternal Family History: Reports: Heart Disease, Hypertension Review of Systems General: Reports: Malaise. Denies: Chills, Fever, Sweats Eyes: Denies: Visual changes - bilaterally, Diplopia ENT: Denies: Rhinorrhea, Sore throat Cardiovascular: Denies: Chest pain, Palpitations Respiratory: Denies: Dyspnea, Cough, Dyspnea on exertion, Orthopnea Gastrointestinal: Denies: Abdominal pain, Nausea, Vomiting, Diarrhea, Melena, Hematochezia Genitourinary: Reports: Frequency. Denies: Dysuria, Hematuria Musculoskeletal: Denies: Neck pain, Back pain, Swelling, Extremity Pain Skin: Denies: Rash, Wounds Neurological: Denies: Headache, Weakness, Numbness Physical Exam Vital Signs/Narrative: Vital Signs Temp Pulse Resp BP Pulse Ox 12/18/18 17:43 97.6 F L 106 H 16 167/90 H 100 Inital Vital Signs reviewed: Yes General: Well nourished, Well developed, No Acute Distress Head: Normocephalic, Atraumatic Eyes: Perrl, EOMI ENT: Moist mucous membranes, No rhinorrhea Neck: Supple, Nontender Cardiovascular: Regular rate, Regular rhythm, No murmurs Respiratory: No distress, CTA bilaterally, Chest nontender Abdomen: Soft, Nontender, Nondistended, Normal bowel sounds Back: Nontender, Normal Inspection Extremities: Nontender, No edema Skin: Normal color, No rash, No Trauma Neurological: Alert, Oriented x3, Cranial nerves II-XII grossly intact, Normal Strength, Normal Sensation Psychological: Normal affect, Normal Mood Diagnostic/Tx/Re-eval Impressions Chest X-Ray 12/18/18 20:05 IMPRESSION: No radiographic evidence of acute cardiopulmonary disease. at 2018 Reported and signed by: Yanely Flores DO Electronically Signed: Yanely Flores DO at 20:16 EDT Tel , Service support , 12/18/18 20:05 Chest PA and Lateral [RAD] Stat Laboratory Results 12/18/18 12/18/18 12/18/18 17:48 19:25 19:35 WBC 6.6 RBC 4.44 Hgb 12.4 Hct 38.9 MCV 87.6 MCH 27.9 MCHC 31.9 L RDW 15.4 H RDW Differential 49.8 H Plt Count 288 MPV 9.1 Immature Gran % (Auto) 0.200 Neut % (Auto) 67.4 Lymph % (Auto) 24.8 [place] % (Auto) 6.3 Eos % (Auto) 0.8 Baso % (Auto) 0.5 Absolute Neuts (auto) 4.5 Absolute Lymphs (auto) 1.64 Total Counted Not Reportable Sodium Potassium Chloride Carbon Dioxide Anion Gap BUN Creatinine Estim Creat Clear Calc Est GFR (MDRD) Af Amer Est GFR (MDRD) Non-Af BUN/Creatinine Ratio Glucose Calcium Urine Color Yellow Urine Clarity Clear Urine pH 6.5 Ur Specific [place] 1.010 Urine Protein Negative Urine Glucose (UA) 1000 H Urine Ketones Negative Urine Occult Blood Negative Urine Nitrite Negative Urine Bilirubin Negative Urine Urobilinogen Normal Ur Leukocyte Esterase 25 H Urine RBC 0 SEEN Urine WBC 0 SEEN Ur Squamous Epith Cells 0-5 SEEN Urine Bacteria 0 SEEN Urine Mucus 0 SEEN Urine Yeast RARE POC Glucose 238 H 12/18/18 19:35 WBC RBC Hgb Hct MCV MCH MCHC RDW RDW Differential Plt Count MPV Immature Gran % (Auto) Neut % (Auto) Lymph % (Auto) [place] % (Auto) Eos % (Auto) Baso % (Auto) Absolute Neuts (auto) Absolute Lymphs (auto) Total Counted Sodium 135 L Potassium 3.7 Chloride 105 Carbon Dioxide 28.0 Anion Gap 2 L BUN 15 Creatinine 0.78 Estim Creat Clear Calc 72.03 Est GFR (MDRD) Af Amer 99 Est GFR (MDRD) Non-Af 82 BUN/Creatinine Ratio 19.2 Glucose 292 H Calcium 8.8 Urine Color Urine Clarity Urine pH Ur Specific [place] Urine Protein Urine Glucose (UA) Urine Ketones Urine Occult Blood Urine Nitrite Urine Bilirubin Urine Urobilinogen Ur Leukocyte Esterase Urine RBC Urine WBC Ur Squamous Epith Cells Urine Bacteria Urine Mucus Urine Yeast POC Glucose - Medical Decision Making Work-up is unremarkable, no sign of any infection causing her hyperglycemia. I feel she is probably just poorly controlled and her diet may be contributing to her hyperglycemia. She should follow-up with her doctor for reevaluation. We monitor her blood sugars here and they remained stable and did not drop too low. She probably treated it with her dose of insulin prior to arrival, or her meter is incorrect. She is comfortable with the plan. ED Disposition - Plan for ED Patient: Disposition: Home or Assisted Living Diagnosis: Hyperglycemia due to type 2 diabetes mellitus Instructions: ED Hyperglycemia Diabetic Referrals: Servando Yang DO [Primary Care Provider] - As soon as possible
[2018-12-18] MEDS: 0.9% Normal Saline 1,000 ML 999 ML IV (19:33)
[2018-12-18 19:39] LABS: Bacteria 0 SEEN /hpf (None Seen); Mucous, Urine 0 SEEN /hpf (<or=2+); Red Blood Cells-Urine 0 SEEN /hpf (0-5); White Blood Cells 0 SEEN /hpf (0-5)
[2018-12-18 19:47] LABS: Absolute Lymphocyte Count 1.64 X10^3/ul (0.83-4.51); Absolute Neutrophil Count 4.5 X10^3/uL (2.0-7.7); Basophil# 0.03 X10^3/uL; Basophil% 0.5 % (0-1); Eosinophil# 0.05 X10^3/uL; Eosinophils% 0.8 % (0-5); Hematocrit 38.9 % (37-47); Hemoglobin 12.4 g/dl (12.0-15.0); Lymphocyte # 1.64 X10^3/ul (4.0); Lymphocyte % 24.8 % (19-41); Mean Corp Hgb Conc 31.9 g/gl (32-36); Mean Corpuscular Hgb 27.9 pg (27.0-32.0); Mean Corpuscular Volume 87.6 fL (81-99); Mean Platelet Vol. 9.1 fl (6.2-12.0); Monocyte# 0.42 X10^3/uL; Monocyte% 6.3 % (0-10); Neutrophil # 4.47 X10^3/uL (2.7-7.7); Neutrophil % 67.4 % (47-70); Platelet Count 288 K/mm3 (150-450); RBC Distribution Width CV 15.4 % (11.6-14.6); RBC Distribution Width SD 49.8 fl (35.1-43.9); Red Blood Count 4.44 M/mm3 (4.2-5.4); White Blood Count 6.6 K/mm3 (4.4-11.0)
[2018-12-18 19:51] LABS: POSITIVE COUNT NO; POSITIVE DIFFERENTIAL NO; POSITIVE MORPHOLOGY NO
[2018-12-18 19:53] LABS: Color, Urine Yellow (Yellow); Glucose, Dipstick 1000 mg/dl (Normal); Ketone-Dipstick Negative (Negative); Leukocyte Esterase-Dipstick 25 /ul (Negative); Nitrite-Dipstick Negative (Negative); Occult Blood-Urine Negative /ul (Negative); Protein-Dipstick Negative (Negative); Urine Bilirubin Dipstick Negative (Negative); Urine Clarity Clear (Clear); Urine Urobilinogen Normal (Normal); Urine pH 6.5 (5.0 - 8.0)
--- NOTE | 2018-12-18 20:00 | ED.RN ---
PT REFUSED X-RAY.
[2018-12-18 20:02] LABS: Squamous Epithelial Cells - UA 0-5 SEEN /hpf (5-10); Yeast-Urine RARE /hpf (None Seen)
[2018-12-18 20:05] LABS: Bedside Glucose 238 mg/dL (70-110)
--- NOTE | 2018-12-18 20:05 | RAD_ITS ---
HISTORY:weakness, hyperglycemia weakness, hyperglycemia EXAM: XR Chest 2 Views: COMPARISON: November 02, 2017 FINDINGS: # of images incl. paperwork: 2 LINES/DEVICES: None. LUNGS: Radiographically clear. No consolidation, edema or effusion. No pneumothorax. MEDIASTINUM AND CARDIOVASCULAR STRUCTURES: Cardiac silhouette not enlarged. BONES AND SOFT TISSUES: Unremarkable. RAD/Chest PA and Lateral IMPRESSION: No radiographic evidence of acute cardiopulmonary disease. at 2018 Reported and signed by: Yanely Flores DO Electronically Signed: Yanely Flores DO at 20:16 EDT Tel , Service support ,
[2018-12-18 20:07] LABS: Anion Gap 2 (5-15); BUN 15 mg/dL (7-18); BUN/Creat Ratio 19.2 RATIO (10-20); Calcium,Total 8.8 mg/dL (8.5-10.1); Chloride 105 mmol/L (98-107); Creatinine, Serum 0.78 mg/dL (0.55-1.02); EST Glomerular Filtration Rate 82 mL/min (>60); Est Glom Filt Rate - Afr Amer 99 mL/min (>60); Estimated Creatinine Clearance 72.03 ml/min; Glucose 292 mg/dL (74-106); Potassium 3.7 mmol/L (3.5-5.1); Sodium Level 135 mmol/L (136-145)
--- NOTE | 2018-12-18 21:05 | ED.RN ---
pt states that she was bitten by something while she was in radiology. there is a pink area with a red pin prick area. md aware. per md area was cleaned with betadine, bacitracin was applied and covered with a 2x2.
[2018-12-18 21:14] VITALS: BP 149/84; PULSE 75; RESP 16; O2SAT 97
[2018-12-18 21:15] VITALS: BP 149/84; PULSE 75; RESP 16; O2SAT 97
[2018-12-18 21:16] LABS: Bedside Glucose 209 mg/dL (70-110)
== END 2018-12-18 21:18 | disposition home or self-care (01) ==
PROVIDERS: Emergency Provider Emergency Medicine; Family Provider Family Medicine; PCP Family Medicine
DX: E11.65 Type 2 diabetes mellitus with hyperglycemia (principal); I10 Essential (primary) hypertension; Z79.4 Long term (current) use of insulin
CPT/HCPCS: 71046; 80048; 81001; 82962; 85025; 96360; 96361; 99283; J7030; A4216

== ENCOUNTER → 2018-12-27 | Outpatient (CLI) | payer MEDICARE, MEDICAID, SELFPAY ==
[2018-12-18 17:43] VITALS: BMI 25.0
[2018-12-27 11:43] LABS: AST(SGOT) 15 U/L (15-37); Alanine Aminotransfer ALT/SGPT 22 U/L (13-56); Anion Gap 6 (5-15); BUN 20 mg/dL (7-18); BUN/Creat Ratio 28.8 RATIO (10-20); Calcium,Total 8.5 mg/dL (8.5-10.1); Chloride 108 mmol/L (98-107); Cholesterol 138 mg/dL (200); EST Glomerular Filtration Rate 94 mL/min (>60); Est Glom Filt Rate - Afr Amer 113 mL/min (>60); Glucose 148 mg/dL (74-106); High Density Lipoprotein 59 mg/dL; Potassium 4.2 mmol/L (3.5-5.1); Sodium Level 142 mmol/L (136-145); Triglycerides 76 mg/dL; Very Low Density Lipoprotein 15 mg/dL (5-40)
[2018-12-27 11:48] LABS: Hemoglobin A1c 8.4 % (4.2-6.3)
== END | disposition home or self-care (01) ==
LOC: LAB 09:43
PROVIDERS: Family Provider Family Medicine; PCP Family Medicine; Referring Provider Nurse Practitioner Adult Health; Visit Provider Nurse Practitioner Adult Health
DX: E11.65 Type 2 diabetes mellitus with hyperglycemia (principal)
CPT/HCPCS: 36415; 80048; 80061; 83036; 84450; 84460

== ENCOUNTER 2018-12-28 19:55 | Emergency (ER) | payer MEDICARE, MEDICAID, SELFPAY ==
[2018-12-28 19:57] VITALS: BP 165/96; PULSE 84; RESP 18; TEMP 36.8; O2SAT 99; BMI 23.3
[2018-12-28 20:26] LABS: Bedside Glucose 251 mg/dL (70-110)
[2018-12-28 20:29] LABS: Absolute Lymphocyte Count 1.78 X10^3/ul (0.83-4.51); Absolute Neutrophil Count 2.4 X10^3/uL (2.0-7.7); Basophil# 0.05 X10^3/uL; Basophil% 1.1 % (0-1); Eosinophil# 0.05 X10^3/uL; Eosinophils% 1.1 % (0-5); Hematocrit 37.1 % (37-47); Hemoglobin 11.9 g/dl (12.0-15.0); Lymphocyte # 1.78 X10^3/ul (4.0); Lymphocyte % 38.9 % (19-41); Mean Corp Hgb Conc 32.1 g/gl (32-36); Mean Corpuscular Hgb 28.3 pg (27.0-32.0); Mean Corpuscular Volume 88.1 fL (81-99); Mean Platelet Vol. 9.2 fl (6.2-12.0); Monocyte# 0.25 X10^3/uL; Monocyte% 5.5 % (0-10); Neutrophil # 2.44 X10^3/uL (2.7-7.7); Neutrophil % 53.4 % (47-70); Platelet Count 271 K/mm3 (150-450); RBC Distribution Width CV 15.4 % (11.6-14.6); RBC Distribution Width SD 49.9 fl (35.1-43.9); Red Blood Count 4.21 M/mm3 (4.2-5.4); White Blood Count 4.6 K/mm3 (4.4-11.0)
[2018-12-28] MEDS: 0.9% Normal Saline 1,000 ML 1000 ML IV (20:33)
[2018-12-28 20:34] LABS: POSITIVE COUNT NO; POSITIVE DIFFERENTIAL NO; POSITIVE MORPHOLOGY NO
[2018-12-28 20:37] LABS: Bacteria 0 SEEN /hpf (None Seen); Mucous, Urine 0 SEEN /hpf (<or=2+)
[2018-12-28 20:42] LABS: Color, Urine Yellow (Yellow); Glucose, Dipstick 1000 mg/dl (Normal); Ketone-Dipstick Negative (Negative); Leukocyte Esterase-Dipstick Negative /ul (Negative); Nitrite-Dipstick Negative (Negative); Occult Blood-Urine Negative /ul (Negative); Protein-Dipstick Negative (Negative); Urine Bilirubin Dipstick Negative (Negative); Urine Clarity Clear (Clear); Urine Urobilinogen Normal (Normal)
[2018-12-28 20:54] LABS: Squamous Epithelial Cells - UA 0-5 SEEN /hpf (5-10)
[2018-12-28 20:56] LABS: Red Blood Cells-Urine 0-5 SEEN /hpf (0-5); White Blood Cells 0-5 SEEN /hpf (0-5)
[2018-12-28 20:57] LABS: Yeast-Urine RARE /hpf (None Seen)
[2018-12-28 21:01] LABS: Anion Gap 4 (5-15); BUN 16 mg/dL (7-18); BUN/Creat Ratio 14.5 RATIO (10-20); Calcium,Total 8.7 mg/dL (8.5-10.1); Chloride 108 mmol/L (98-107); EST Glomerular Filtration Rate 55 mL/min (>60); Est Glom Filt Rate - Afr Amer 67 mL/min (>60); Estimated Creatinine Clearance 53.22 ml/min; Glucose 248 mg/dL (74-106); Potassium 4.1 mmol/L (3.5-5.1); Sodium Level 139 mmol/L (136-145)
--- NOTE | 2018-12-28 21:10 | ED.DCSUM_ITS ---
- ER Visit Summary Date of Service: 12/28/18 Chief Complaint: High blood sugar History of Present Illness: The patient is a 53 F who comes in complaining of high blood sugar. She checked it at home and it was 499. This was before she ate dinner and took insulin. She takes insulin as well as pills for her diabetes. She states that she watches her diet sometimes. She states that she has been medication compliant. Denies any nausea or vomiting. She states that she feels shaky on her feet. Also he also feels fatigued. Physical Examination: Vital signs reviewed. HEENT exam unremarkable. Heart is regular rate and rhythm without murmurs. Lungs are clear to auscultation. Abdomen is soft and nontender. Extremities reveal no edema. Skin exam normal. Neurologic exam normal. I did watch her ambulate to the room and she is slightly unsteady on her feet but able to ambulate without difficulty. She does not appear to be drowsy or lethargic. Test Results: Hemoglobin 11.9, chloride 108, glucose 248, creatinine 110. Urinalysis negative for infection Emergency Department Course and Treatment: The patient's glucose is 248. I do not feel she needs any insulin therapy for this. I am unclear as to why she feels shaky and fatigued. Does not appear to be metabolic in nature. The patient will be discharged to increase her hydration at home. She will take her diabetes medications as prescribed. She will monitor her blood sugars at home and will call her PCP on Sunday. Treatment Plan: [] Disposition: Discharge Impression: Hyperglycemia This note was generated with [employer] dictation software. It may contain incorrect words, spelling, and punctuation that were not noted in review of the chart prior to signing ED Disposition - Plan for ED Patient: Referrals: Servando Yang DO [Primary Care Provider] -
--- NOTE | 2018-12-28 21:12 | ED.DEP ---
ED Disposition - Plan for ED Patient: Disposition: Home or Assisted Living Instructions: Diabetic Hyperglycemia Referrals: Servando Yang DO [Primary Care Provider] -
[2018-12-28 21:18] VITALS: RESP 18
== END 2018-12-28 21:18 | disposition home or self-care (01) ==
PROVIDERS: Emergency Provider Emergency Medicine; Family Provider Family Medicine; PCP Family Medicine
DX: E11.65 Type 2 diabetes mellitus with hyperglycemia (principal); Z79.4 Long term (current) use of insulin
CPT/HCPCS: 80048; 81001; 82962; 85025; 96360; 99285; J7030; A4216

== ENCOUNTER 2019-02-06 17:42 | Emergency (ER) | payer MEDICARE, MEDICAID, SELFPAY ==
[2019-02-06 17:42] VITALS: BP 136/93; PULSE 96; RESP 14; TEMP 36.8; O2SAT 100; BMI 25.8
--- NOTE | 2019-02-06 17:50 | ED.VIS.GEN ---
History of Present Illness Chief Complaint: Hyperglycemia Detail of Chief Complaint: Blood sugar greater than 600 Informant: Patient, Family Onset: Today Context: Gradual Onset Timing: Continuous Quality: High blood sugar Location: Not applicable Current Severity: Moderate Maximum Severity: Moderate Worsened by: Nothing Relieved by: Nothing Associated Symptoms: Possibly frequency Narrative: Patient is a 53-year-old woman who presents because blood sugars greater than 600. She was seen in December for elevated blood sugar and her blood sugar was 143. She denies visual, ocular auditory symptoms. She denies cardiac symptoms. Denies shortness of breath. She denies nausea or vomiting. She denies dysuria, urgency or nocturia. She denies polyphagia or polydipsia. She denies dry mouth or thirst. She denies change in her vision. Prior similar symptoms: Yes Recent Illness/Hospitalization: Yes - Past Medical History (1) Anxiety disorder Status: Chronic (2) Diabetes mellitus, type II Status: Chronic (3) Hiatal hernia Status: Chronic (4) Hyperlipidemia Status: Chronic (5) Hypertension Status: Chronic Past Medical History - Allergies and Home Meds Allergies/Adverse Reactions: Allergies amoxicillin Allergy (Verified 02/06/19 17:45) Itching dulaglutide [From Trulicity] Allergy (Verified 02/06/19 17:45) Itching Primary Care Physician: Servando Yang DO [Primary Care Provider] - Prior records reviewed: Yes Surgical History: no surgical history Lives: With Family Smoking Status: Never smoker Alcohol: None Drugs: None - Family History Maternal Family History: Reports: Diabetes, Heart Disease, Hypertension Paternal Family History: Reports: Heart Disease, Hypertension Review of Systems General: Denies: Chills, Fever, Malaise, Subjective, Sweats Eyes: Denies: Visual changes - bilaterally, Blurred Vision - bilaterally, Diplopia ENT: Denies: Bilateral ear pain, Rhinorrhea, Sore throat Cardiovascular: Denies: Chest pain, Palpitations, Heart racing Respiratory: Denies: Dyspnea, Cough, Dyspnea on exertion Gastrointestinal: Denies: Abdominal pain, Nausea, Vomiting, Diarrhea, Melena, Hematochezia Genitourinary: Denies: Dysuria, Hematuria, Frequency Musculoskeletal: Denies: Myalgias, Arthralgias, Neck pain, Back pain, Extremity Pain Skin: Denies: Rash, Wounds Neurological: Denies: Headache, Weakness, Numbness Endocrine: Denies: Polyuria, Polydipsia Hematologic: Denies: Easy bruising, Easy bleeding Physical Exam Vital Signs/Narrative: Vital Signs Temp Pulse Resp BP Pulse Ox 02/06/19 17:42 98.2 F 96 14 136/93 H 100 Inital Vital Signs reviewed: Yes General: Well nourished, Well developed, No Acute Distress Head: Normocephalic, Atraumatic Eyes: Perrl, EOMI ENT: Moist mucous membranes, No rhinorrhea Neck: Supple, Nontender Cardiovascular: Regular rate, Regular rhythm, No murmurs Respiratory: No distress, CTA bilaterally, Chest nontender Abdomen: Soft, Nontender, Nondistended, Normal bowel sounds Back: Nontender, Normal Inspection Extremities: Nontender, No edema Skin: Normal color, No rash, No Trauma. Negative for: Cyanosis, Diaphoresis, Jaundice Neurological: Alert, Oriented x3, Cranial nerves II-XII grossly intact, Normal Strength, Normal Sensation Psychological: Normal affect, Normal Mood Diagnostic/Tx/Re-eval Blood glucose test is 333. - Medical Decision Making Since patient has presented to the ER with elevated blood sugar range 600 in the past and was found to have blood sugar less than 200 will obtain BTT prior to ordering IV ER and needs lab work. Her blood sugar is 333. That would explain the lack of any significant symptoms. She was treated with subcu insulin and discharged home ED Disposition - Plan for ED Patient: Disposition: Home or Assisted Living Diagnosis: Hyperglycemia due to type 2 diabetes mellitus Instructions: ED Diabetic Hyperglycemia Referrals: Servando Yang DO [Primary Care Provider] - As Needed Additional Instructions: You need your glucose monitor to be calibrated.
[2019-02-06 18:01] LABS: Bedside Glucose 333 mg/dL (70-110)
[2019-02-06] MEDS: Insulin Lispro 100 UNIT/ML INSULN.PEN SC (18:12)
== END 2019-02-06 18:18 | disposition home or self-care (01) ==
LOC: ED 18:03
PROVIDERS: Emergency Provider Emergency Medicine; Family Provider Family Medicine; PCP Family Medicine
DX: E11.65 Type 2 diabetes mellitus with hyperglycemia (principal); F41.9 Anxiety disorder, unspecified; E78.5 Hyperlipidemia, unspecified; I10 Essential (primary) hypertension; Z79.4 Long term (current) use of insulin; Z79.82 Long term (current) use of aspirin; Z79.899 Other long term (current) drug therapy
CPT/HCPCS: 82962; 99282

== ENCOUNTER 2019-08-08 15:06 | Emergency (ER) | payer MEDICARE, SELFPAY ==
[2019-07-31 10:30] VITALS: BMI 27.3
[2019-08-08 15:12] VITALS: BP 165/93; PULSE 113; RESP 16; TEMP 36.8; O2SAT 99; BMI 29.7
--- NOTE | 2019-08-08 15:16 | ED.VIS.GEN ---
History of Present Illness Chief Complaint: Hypoglycemia Detail of Chief Complaint: Blood sugar 50 and altered mental status Informant: Patient, Family Onset: Today Context: Sudden Onset Timing: Continuous Quality: Low blood sugar Location: Home Current Severity: Mild Maximum Severity: Mild Worsened by: Decreased caloric intake Relieved by: Nothing Associated Symptoms: Altered mental status per mother Narrative: Patient is a middle-age woman with history of type 2 diabetes on metformin and insulin who presents because blood sugar was 50 with altered mental status. She was given glucose by the squad. Repeat blood sugar is 44. She is alert and oriented. She has no complaints. She denies ocular, visual auditory symptoms. She denies throat pain. She denies cardiac respiratory symptoms. She denies nausea, vomiting diarrhea. She denies dysuria, frequency, urgency or hematuria. She denies myalgias arthralgias. Prior similar symptoms: Yes Recent Illness/Hospitalization: No - Past Medical History (1) Anxiety disorder Status: Chronic (2) Hiatal hernia Status: Chronic (3) Hyperlipidemia Status: Chronic (4) Hypertension Status: Chronic Past Medical History - Allergies and Home Meds Allergies/Adverse Reactions: Allergies empagliflozin [From Jardiance] Allergy (Unknown, Verified 08/08/19 15:17) Unknown amoxicillin Allergy (Verified 08/08/19 15:17) Itching dulaglutide [From Trulicity] Allergy (Verified 08/08/19 15:17) Itching Primary Care Physician: Servando Yang DO [Primary Care Provider] - Prior records reviewed: Yes Surgical History: no surgical history Lives: With Family Smoking Status: Never smoker Alcohol: None Drugs: None - Family History Maternal Family History: Family History (Last Reviewed 06/02/19 @ 09:17 by Robel Callahan MD) Unknown Arthritis Diabetes Myocardial infarction Heart disease Hypertension Osteoporosis Severe allergic reaction Skin cancer Family History: Reports: Diabetes, Heart Disease, Hypertension Paternal Family History: Family History (Last Reviewed 06/02/19 @ 09:17 by Robel Callahan MD) Unknown Arthritis Diabetes Myocardial infarction Heart disease Hypertension Osteoporosis Severe allergic reaction Skin cancer Family History: Reports: Heart Disease, Hypertension Review of Systems General: Denies: Chills, Fever, Malaise, Sweats Eyes: Denies: Visual changes - bilaterally, Blurred Vision - bilaterally, Diplopia ENT: Denies: Bilateral ear pain, Rhinorrhea, Sore throat Cardiovascular: Denies: Chest pain, Palpitations Respiratory: Denies: Dyspnea, Cough, Dyspnea on exertion Gastrointestinal: Denies: Abdominal pain, Nausea, Vomiting, Diarrhea, Melena, Hematochezia Genitourinary: Denies: Dysuria, Hematuria, Frequency Musculoskeletal: Denies: Myalgias, Arthralgias, Neck pain, Back pain, Swelling, Extremity Pain, -, - Skin: Denies: Rash, Wounds Neurological: Denies: Headache, Weakness, Numbness Endocrine: Denies: Polyuria, Polydipsia Hematologic: Denies: Easy bruising, Easy bleeding Physical Exam Vital Signs/Narrative: Vital Signs Temp Pulse Resp BP Pulse Ox 08/08/19 15:12 98.3 F 113 H 16 165/93 H 99 Inital Vital Signs reviewed: Yes General: Well nourished, Well developed, Obese, No Acute Distress Head: Normocephalic, Atraumatic Eyes: Perrl, EOMI. Negative for: Pale conjunctiva, Scleral icterus ENT: Moist mucous membranes, No rhinorrhea, TM's clear Neck: Supple, Nontender, No lymphadenopathy, No JVD Cardiovascular: Regular rate, Regular rhythm, No murmurs, Normal S1, Normal S2 Respiratory: No distress, CTA bilaterally, Chest nontender Abdomen: Soft, Nontender, Nondistended, Normal bowel sounds Back: Nontender, Normal Inspection Extremities: Nontender, No edema Skin: Normal color, No rash, No Trauma. Negative for: Cyanosis, Diaphoresis, Jaundice Neurological: Alert, Oriented x3, Cranial nerves II-XII grossly intact, Normal Strength, Normal Sensation Psychological: Normal affect, Normal Mood Diagnostic/Tx/Re-eval Laboratory Results 08/08/19 08/08/19 08/08/19 14:53 15:33 16:36 Sodium 139 Potassium 3.5 Chloride 105 Carbon Dioxide 28.0 Anion Gap 6 BUN 20 H Creatinine 0.71 Estim Creat Clear Calc 82.46 Est GFR (MDRD) Af Amer 111 Est GFR (MDRD) Non-Af 92 BUN/Creatinine Ratio 28.2 H Glucose 63 L Calcium 9.3 POC Glucose 114 H 217 H Basic metabolic panel and repeat blood glucose is unremarkable. Plan is to discharge to home - Medical Decision Making Since repeat BTT is lower and she is on lock acting insulin is well is oral agents she received 100 mcg of octreotide subcu. She also received D50. She was ordered a diet tray. Will obtain basic metabolic panel to assess renal function. ED Disposition - Plan for ED Patient: Disposition: Home or Assisted Living Diagnosis: Hypoglycemia due to type 2 diabetes mellitus Instructions: HYPOGLYCEMIA, Oral Diabetic Medicine Referrals: Servando Yang DO [Primary Care Provider] - As Needed
[2019-08-08 15:41] LABS: Bedside Glucose 114 mg/dL (70-110)
[2019-08-08 15:47] LABS: Anion Gap 6 (5-15); BUN 20 mg/dL (7-18); BUN/Creat Ratio 28.2 RATIO (10-20); Calcium,Total 9.3 mg/dL (8.5-10.1); Chloride 105 mmol/L (98-107); Creatinine, Serum 0.71 mg/dL (0.55-1.02); EST Glomerular Filtration Rate 92 mL/min (>60); Est Glom Filt Rate - Afr Amer 111 mL/min (>60); Estimated Creatinine Clearance 82.46 ml/min; Glucose 63 mg/dL (74-106); Potassium 3.5 mmol/L (3.5-5.1); Sodium Level 139 mmol/L (136-145)
[2019-08-08 16:40] LABS: Bedside Glucose 217 mg/dL (70-110)
== END 2019-08-08 17:19 | disposition home or self-care (01) ==
PROVIDERS: Emergency Provider Emergency Medicine; PCP Family Medicine
DX: E11.649 Type 2 diabetes mellitus with hypoglycemia without coma (principal); I10 Essential (primary) hypertension; E78.5 Hyperlipidemia, unspecified; F41.9 Anxiety disorder, unspecified; E66.9 Obesity, unspecified; Z79.4 Long term (current) use of insulin; Z79.899 Other long term (current) drug therapy
CPT/HCPCS: 80048; 82962; 99285; J2354

== ENCOUNTER → 2020-08-03 15:31 | Outpatient (CLI) | payer MEDICARE, SELFPAY ==
[2020-08-03 15:16] VITALS: BMI 26.9
[2020-08-03 15:33] LABS: Mucous, Urine 0 SEEN /hpf (<or=2+); Red Blood Cells-Urine 0 SEEN /hpf (0-5); White Blood Cells 0 SEEN /hpf (0-5)
[2020-08-03 16:53] LABS: Color, Urine Yellow (Yellow); Glucose, Dipstick 1000 mg/dl (Normal); Leukocyte Esterase-Dipstick Negative /ul (Negative); Nitrite-Dipstick Negative (Negative); Occult Blood-Urine 10 /ul (Negative); Protein-Dipstick 30 mg/dl (Negative); Specific Gravity, Urine 1.025 (1.002-1.030); Urine Bilirubin Dipstick Negative (Negative); Urine Clarity Clear (Clear); Urine Urobilinogen Normal (Normal)
[2020-08-03 16:54] LABS: Absolute Neutrophil Count 8.6 X10^3/uL (2.0-7.7); Basophil# 0.08 X10^3/uL; Basophil% 0.8 % (0-1); Eosinophil# 0.01 X10^3/uL; Eosinophils% 0.1 % (0-5); Hematocrit 50.9 % (37-47); Hemoglobin 15.4 g/dL (12.0-15.0); Lymphocyte % 13.4 % (19-41); Mean Corp Hgb Conc 30.3 g/dL (32-36); Mean Corpuscular Hgb 26.1 pg (27.0-32.0); Mean Corpuscular Volume 86.3 fL (81-99); Mean Platelet Vol. 11.8 fl (6.2-12.0); Monocyte# 0.38 X10^3/uL; Monocyte% 3.6 % (0-10); NRBC Flagged by Analyzer 0 % (0-5); Neutrophil # 8.56 X10^3/uL (2.7-7.7); Neutrophil % 81.8 % (47-70); Platelet Count 401 K/mm3 (150-450); RBC Distribution Width CV 14.6 % (11.6-14.6); RBC Distribution Width SD 45.9 fl (35.1-43.9); White Blood Count 10.5 K/mm3 (4.4-11.0)
[2020-08-03 17:06] LABS: Ketone-Dipstick 150 mg/dl (Negative)
[2020-08-03 17:09] LABS: Bacteria RARE /hpf (None Seen); Squamous Epithelial Cells - UA 0-5 SEEN /hpf (5-10)
[2020-08-03 17:10] LABS: Microalbumin:Creatinine Ratio 308.4 mg/g CRE (<30 mg/g CRE)
[2020-08-03 17:13] LABS: AST(SGOT) 21 U/L (15-37); Alanine Aminotransfer ALT/SGPT 37 U/L (13-56); Albumin, Serum 4.1 g/dL (3.2-5.0); Alkaline Phosphatase 173 U/L (45-117); Anion Gap 20 (5-15); BUN 23 mg/dL (7-18); BUN/Creat Ratio 16.5 RATIO (10-20); Calcium,Total 9.5 mg/dL (8.5-10.1); Chloride 103 mmol/L (98-107); Cholesterol 173 mg/dL (200); Creatinine, Serum 1.39 mg/dL (0.55-1.02); EST Glomerular Filtration Rate 42 mL/min (>60); Est Glom Filt Rate - Afr Amer 51 mL/min (>60); Globulin 4.2 g/dL (2.2-4.2); Glucose 402 mg/dL (74-106); High Density Lipoprotein 38 mg/dL; Potassium 4.9 mmol/L (3.5-5.1); Protein, Total 8.3 g/dL (6.4-8.2); Sodium Level 133 mmol/L (136-145); Thyroid Stim Hormone (TSH) 0.82 uIU/mL (0.358-3.74); Triglycerides 216 mg/dL; Very Low Density Lipoprotein 43 mg/dL (5-40)
== END ==
PROVIDERS: Referring Provider Internal Medicine Endocrinology, Diabetes & Metabolism; Visit Provider Internal Medicine Endocrinology, Diabetes & Metabolism
DX: R30.0 Dysuria (principal)
CPT/HCPCS: 36415; 80053; 80061; 81001; 82043; 82570; 84443; 85025; 87086

== ENCOUNTER 2020-08-03 17:55 | Inpatient (IN) | payer MEDICARE, SELFPAY ==
[2020-08-03] VITALS (12 sets, daily range): BP systolic 142–187; BP diastolic 74–101; PULSE 104–138; RESP 15–22; TEMP 36.3–36.4; O2SAT 98–100; BMI 26.9; BMI 28.0; BMI 28.3
--- NOTE | 2020-08-03 18:11 | EKG12_ITS ---
Test Reason : DYSRHYTHMIA Blood Pressure : / mmHG Vent. Rate : 128 BPM Atrial Rate : 128 BPM P-R Int : 104 ms QRS Dur : 084 ms QT Int : 412 ms P-R-T Axes : 000 051 066 degrees QTc Int : 601 ms Sinus tachycardia with short DE Nonspecific T wave abnormality Abnormal ECG Confirmed by VIRIDIANA REY, ALBERTO ([id number]), social media editor CANELO CORTEZ ([id number]) on 08/04/2020 10:50:01 AM Referred By: MICAH Confirmed By:ALBERTO KEMP MD
[2020-08-03] MEDS: 0.9% Normal Saline 1,000 ML 999 ML IV ×2 (18:18→19:51)
--- NOTE | 2020-08-03 18:20 | ED.VIS.GEN ---
History of Present Illness Chief Complaint: Nausea/Vomiting Informant: Patient Narrative: Patient is a 54-year-old female with a past medical history of diabetes who presents to the emergency department for nausea/vomiting and abnormal outpatient lab work. She states that she started vomiting early this morning. She has not been able to keep anything down. She otherwise feels fine. She has been having some bilateral side pain of her abdomen since throwing up. She denies any fevers or chills. No cough. No diarrhea. She has been urinating very frequently. She states over the past few days her glucometer has been reading high. She does take insulin as well as pills for diabetes. 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 I did give her dose of insulin check lab work. She was found to have a low CO2, high anion gap and was referred to the emergency department. She denies any known sick contacts. She denies smoking, drinking or drug use. Past Medical History - Allergies and Home Meds Allergies/Adverse Reactions: Allergies empagliflozin [From Jardiance] Allergy (Unknown, Verified 08/03/20 17:56) Unknown amoxicillin Allergy (Verified 08/03/20 17:56) Itching dulaglutide [From Trulicity] Allergy (Verified 08/03/20 17:56) Itching Prior records reviewed: Yes Surgical History: no surgical history Smoking Status: Never smoker - Family History Maternal Family History: Family History (Last Reviewed 08/03/20 @ 18:[address] Robel Callahan MD) Unknown Arthritis Diabetes Myocardial infarction Heart disease Hypertension Osteoporosis Severe allergic reaction Skin cancer Family History: Reports: Diabetes, Heart Disease, Hypertension Paternal Family History: Family History (Last Reviewed 08/03/20 @ 18:[address] Robel Callahan MD) Unknown Arthritis Diabetes Myocardial infarction Heart disease Hypertension Osteoporosis Severe allergic reaction Skin cancer Family History: Reports: Heart Disease, Hypertension Review of Systems All systems negative except as indicated General: Denies: Chills, Fever, Sweats Eyes: Denies: Visual changes - bilaterally, Diplopia ENT: Denies: Rhinorrhea, Sore throat Cardiovascular: Denies: Chest pain, Palpitations Respiratory: Denies: Dyspnea, Cough, Dyspnea on exertion Gastrointestinal: Reports: Abdominal pain, Nausea, Vomiting. Denies: Diarrhea, Melena, Hematochezia Genitourinary: Reports: Frequency. Denies: Dysuria, Hematuria Musculoskeletal: Denies: Back pain, Extremity Pain Skin: Denies: Rash, Wounds Neurological: Denies: Headache, Weakness, Numbness Physical Exam Vital Signs/Narrative: Vital Signs Temp Pulse Resp BP Pulse Ox 08/03/20 18:00 136 H 17 161/101 H 100 08/03/20 17:56 97.4 F L 138 H 18 161/101 H 100 Inital Vital Signs reviewed: Yes General: Well nourished, Well developed, No Acute Distress Head: Normocephalic, Atraumatic Eyes: Perrl, EOMI ENT: Moist mucous membranes, No rhinorrhea Neck: Supple, Nontender Cardiovascular: Regular rhythm, No murmurs, Tachycardia Respiratory: No distress, CTA bilaterally, Chest nontender Abdomen: Soft, Nontender, Nondistended, Normal bowel sounds Back: Nontender, Normal Inspection Extremities: Nontender, No edema. Negative for: Calf Tenderness Skin: Normal color, No rash Neurological: Alert, Oriented x3, Cranial nerves II-XII grossly intact, Normal Strength, Normal Sensation Psychological: Normal affect, Normal Mood Diagnostic/Tx/Re-eval - EKG Initial EKG Interpretation: - - Rate of 128 bpm in sinus tachycardia. DC interval of 104. QTC of 601. Normal axis. No significant ST elevations or depressions. No T wave abnormalities. - Medical Decision Making Patient presents to the emergency department for hyperglycemia, elevated anion gap and low CO2. Upon arrival to the ED she is tachycardic into the 130s. She otherwise does not appear in any acute distress. She is started on IV fluids. We will recheck lab work here to evaluate glucose and electrolyte status. Patient's pH was acidotic. She has a mild elevation of her anion gap and low CO2. She is hyperglycemic. Will start insulin drip for DKA. She is bolused a liter of normal saline will be given a second liter of saline. Will bring her into the hospital for further evaluation and management. She otherwise has been stable throughout ED stay. She understands and is agreeable with this plan. - Critical Care Time Critical care time (excluding procedures): 30-74 minutes, Discussing w/Patient &/or Family/Medical Staff Physician, Discussing w/Consultants, Arranging Admission or Transfer, Performing Direct Patient Care at Bedside - Diabetic ketoacidosis on insulin drip ED Disposition - Plan for ED Patient: Disposition: [facility] Diagnosis: DKA (diabetic ketoacidoses), Dehydration
[2020-08-03 18:26] LABS: Bedside Glucose 360 mg/dL (70-110)
--- NOTE | 2020-08-03 18:28 | ED.RN ---
pt sister batsheva phone number [phone].
[2020-08-03 18:32] LABS: Absolute Lymphocyte Count 1.37 X10^3/uL (0.83-4.51); Absolute Neutrophil Count 6.5 X10^3/uL (2.0-7.7); Basophil# 0.07 X10^3/uL; Basophil% 0.9 % (0-1); Eosinophil# 0.01 X10^3/uL; Eosinophils% 0.1 % (0-5); Hematocrit 50.2 % (37-47); Hemoglobin 15.6 g/dL (12.0-15.0); Lymphocyte # 1.37 X10^3/ul (4.0); Lymphocyte % 16.7 % (19-41); Mean Corp Hgb Conc 31.1 g/dL (32-36); Mean Corpuscular Hgb 26.6 pg (27.0-32.0); Mean Corpuscular Volume 85.7 fL (81-99); Mean Platelet Vol. 10.2 fl (6.2-12.0); Monocyte# 0.26 X10^3/uL; Monocyte% 3.2 % (0-10); NRBC Flagged by Analyzer 0 % (0-5); Neutrophil # 6.46 X10^3/uL (2.7-7.7); Neutrophil % 78.9 % (47-70); Platelet Count 414 K/mm3 (150-450); RBC Distribution Width CV 14.6 % (11.6-14.6); RBC Distribution Width SD 46.2 fl (35.1-43.9); Red Blood Count 5.86 M/mm3 (4.2-5.4); White Blood Count 8.2 K/mm3 (4.4-11.0)
[2020-08-03 18:51] LABS: AST(SGOT) 18 U/L (15-37); Alanine Aminotransfer ALT/SGPT 37 U/L (13-56); Albumin, Serum 4.5 g/dL (3.2-5.0); Alkaline Phosphatase 184 U/L (45-117); Anion Gap 18 (5-15); BUN 24 mg/dL (7-18); BUN/Creat Ratio 16.8 RATIO (10-20); Calcium,Total 9.9 mg/dL (8.5-10.1); Chloride 103 mmol/L (98-107); Creatinine, Serum 1.43 mg/dL (0.55-1.02); EST Glomerular Filtration Rate 41 mL/min (>60); Est Glom Filt Rate - Afr Amer 49 mL/min (>60); Estimated Creatinine Clearance 38.84 ml/min; Globulin 4.5 g/dL (2.2-4.2); Glucose 358 mg/dL (74-106); Lipase 59 U/L (73-393); Potassium 4.4 mmol/L (3.5-5.1); Sodium Level 134 mmol/L (136-145)
[2020-08-03 19:00] LABS: Mucous, Urine 0 SEEN /hpf (<or=2+); Red Blood Cells-Urine 0 SEEN /hpf (0-5)
[2020-08-03 19:07] LABS: Color, Urine Yellow (Yellow); Glucose, Dipstick 1000 mg/dl (Normal); Leukocyte Esterase-Dipstick Negative /ul (Negative); Nitrite-Dipstick Negative (Negative); Occult Blood-Urine 25 /ul (Negative); Protein-Dipstick 100 mg/dl (Negative); Specific Gravity, Urine 1.025 (1.002-1.030); Urine Bilirubin Dipstick Negative (Negative); Urine Clarity Clear (Clear); Urine Urobilinogen Normal (Normal)
[2020-08-03 19:12] LABS: Ketone-Dipstick 150 mg/dl (Negative)
[2020-08-03 19:17] LABS: Bacteria 1+ /hpf (None Seen); Squamous Epithelial Cells - UA 0-5 SEEN /hpf (5-10); White Blood Cells 0-5 SEEN /hpf (0-5)
[2020-08-03 19:18] LABS: Hyaline Cast 0-5 SEEN /lpf (0-5)
--- NOTE | 2020-08-03 19:18 | PCM.HP.STD ---
Problem List (1) DKA (diabetic ketoacidoses) Status: Acute Qualifiers: Diabetes mellitus type: type 2 Diabetes mellitus complication detail: without coma Qualified Code(s): E11.10 - Type 2 diabetes mellitus with ketoacidosis without coma (2) Acute kidney injury superimposed on chronic kidney disease Status: Acute (3) Overweight (BMI 25.0-29.9) Status: Chronic (4) Type 2 diabetes mellitus Status: Chronic Qualifiers: Diabetes mellitus detention insulin use: with oil heaterman use Diabetes mellitus complication status: with hypoglycemia Diabetes mellitus complication detail: without coma Qualified Code(s): E11.649 - Type 2 diabetes mellitus with hypoglycemia without coma; Z79.4 - group home (current) use of insulin (5) Anxiety disorder Status: Chronic Qualifiers: Anxiety disorder type: unspecified anxiety disorder Qualified Code(s): F41.9 - Anxiety disorder, unspecified (6) Hypertension Status: Chronic Qualifiers: Hypertension type: essential hypertension Qualified Code(s): I10 - Essential (primary) hypertension (7) Hyperlipidemia Status: Chronic Qualifiers: Hyperlipidemia type: unspecified Qualified Code(s): E78.5 - Hyperlipidemia, unspecified History of Present Illness Date of Admission: 08/03/20 Chief Complaint: Nausea, emesis. The patient is a 54 y/o F w/ PMHx: Allergic Rhinitis, Chronic headaches, HTN, HLD, Diabetes mellitus type II with neuropathy, Chronic speech impediment, hx Pancreatitis, Chronic back pains who presents to the [facility] ED on 08/03/20 with history of ongoing nausea, emesis over the last 24 hours with inability to keep anything down otherwise feels fine. Denies any fever, chills, cough, dyspnea, diarrhea. She does note her recent BS over the last several days have been elevated and she does report taking her medications as rx. She admits to polydipsia and polyuria. Her melon packer referred her to the ED for evaluation given her evaluation and abnormal labs. Work-up in the ED included 97.4, heart rate 138, BP 161/1 one, respiratory rate 18, 100% on room air, CBC w/ WBC 8.2, Hgb 15.6, Plts 414 without marked shift, CMP with sodium 134,, Dex at 13, anion gap 18, BUN/creatinine 24/1.43, glucose 358, alk phos 184, troponin less than 0.015, lipase 59, urinalysis with specific gravity 1.025, protein 100, glucose 1000, ketones 150, occult blood 25, negative nitrite, negative leukocyte esterase, 0-5 urine WBCs, 1+ bacteria, acetone pending. In the ED patient ministered normal saline bolus as well as initiated on insulin drip. Past Medical History Past Medical History (Chronic Problems): Chronic Problems (Last Reviewed 08/03/20 @ 18:[address] Robel Callahan MD) Overweight (BMI 25.0-29.9) (Chronic) Mixed hyperlipidemia (Chronic) Type 2 diabetes mellitus (Chronic) Hiatal hernia (Chronic) Anxiety disorder (Chronic) Hypertension (Chronic) Hyperlipidemia (Chronic) Medical History: Medical History (Last Reviewed 08/03/20 @ 18:[address] Robel Callahan MD) Arthritis M19.90 Back problem M53.9 Neuropathy G62.9 Pancreatitis K85.90 Seasonal allergies J30.2 Type 2 diabetes mellitus E11.9 Chronic headaches R51 Allergies empagliflozin [From Jardiance] Allergy (Unknown, Verified 08/03/20 17:56) Unknown amoxicillin Allergy (Verified 08/03/20 17:56) Itching dulaglutide [From Trulicity] Allergy (Verified 08/03/20 17:56) Itching Home Medications: Ambulatory Orders Medication Instructions Recorded Rosuvastatin Calcium [Crestor] 40 mg PO DAILY 05/26/16 Duloxetine HCl 60 mg PO DAILY 05/06/18 pregabalin 100 mg capsule 100 mg PO TID #90 cap 01/08/20 benazepril 10 mg tablet 10 mg PO DAILY #90 tab 01/20/20 Insulin Glargine [Lantus SoloStar 40 units SQ QHS 08/03/20 Pen] Insulin Lispro [Humalog KwikPen] 0 units SQ TID 08/03/20 Metformin HCl [Glucophage] 1,000 mg PO BIDAC 08/03/20 Surgical History: no surgical history Psychiatric History: Anxiety HEALTH CONCIERGE History: No pertinent HEALTH CONCIERGE history Lives: With Family - Patient notes that her mother lives with her. Smoking Status: Never smoker Tobacco Use: Non-smoker Alcohol: None Drugs: None - *Family History Maternal Family History: Family History (Last Reviewed 08/03/20 @ 18:[address] Robel Callahan MD) Unknown Arthritis Diabetes Myocardial infarction Heart disease Hypertension Osteoporosis Severe allergic reaction Skin cancer History Items: Diabetes, Heart Disease, Hypertension Paternal Family History: Family History (Last Reviewed 08/03/20 @ 18:[address] Robel Callahan MD) Unknown Arthritis Diabetes Myocardial infarction Heart disease Hypertension Osteoporosis Severe allergic reaction Skin cancer History Items: Heart Disease, Hypertension Review of Systems Constitutional: Reports: Anorexia, Malaise, Weakness, Fatigue. Denies: Chills, Fever, Weight Change HEENT: Reports: Head Aches. Denies: Sinus Congestion, Sinus Drainage Cardiovascular: Denies: Chest Pain, Palpitations Respiratory: Denies: Cough, Shortness of breath at rest, Sputum production Gastrointestinal: Reports: Nausea, Vomiting. Denies: Abdominal Pain, Constipation, Diarrhea Genitourinary: Reports: Frequency. Denies: Dysuria Musculoskeletal: Reports: Back Pain. Denies: Joint Pain, Joint Tenderness, Muscle pain Skin: Denies: Rash, Wounds Neurological: Reports: - - Chronic neuropathy.. Denies: Focal weakness, Numbness, Tingling Psychiatric: Denies: Anxiety, Depression, Homicidal Ideations, Suicidal Ideations Endocrine: Reports: Polydipsia, Polyuria Hematologic/ Lymphatic: Denies: Easy Bruising, Easy Bleeding VTE Information - Inpt Only VTE Present on Admission: No VTE Mechan Device Prophylaxis: SCD's VTE Pharm Prophylaxis ordered?: Yes Subjective: Patient seated upright in the ED bed, fatigued and ill-appearing. Objective: Physical Examination: General: awake, alert, oriented x 3 and cooperative, seated upright in the ED bed, fatigued and ill-appearing, mild speech impediment which patient notes is chronic. Skin: normal color, turgor, no icterus, cyanosis. HEENT: AT/NC, EOMI, PERRLA, dry MM, no carotid bruits or JVD noted. Lungs: CTA bilaterally, moderate effort, mild decrease BL bases, no rales, ronchi or wheezing. Heart: Tachycardic with regular rhythm; no gallop, rub audible. Abdomen: soft, NTTP, ND, mildly hyperactive BS, no HSM. Extremities: no cyanosis, clubbing, or edema. Neurological: patient awake, alert, oriented as noted; cognitive function intact; pupils equally reactive to light and accomodation; cranial nerves II-XII grossly normal, moving all 4 extremities, no focal deficits, strength moderately to severely global decrease secondary to acute presentation. Psychiatric: affect appears fatigued, ill-appearing, no acute evidence of depressive or anxiety feelings. - Physical Exam Vitals/I&O's: Vital Signs Temp Pulse Resp BP Pulse Ox 97.4 F L 136 H 17 161/101 H 100 08/03/20 17:56 08/03/20 18:00 08/03/20 18:00 08/03/20 18:00 08/03/20 18:00 Oxygen Delivery Method Room Air Weight: 163 lb 5.8 oz Body Mass Index (BMI) 28.0 Finger Stick Blood Glucose 360 Laboratory Results 08/03/20 18:07: POC Glucose 360 H 08/03/20 18:19: Sodium 134 L, Potassium 4.4, Chloride 103, Carbon Dioxide 13.0 L, Anion Gap 18 H, BUN 24 H, Creatinine 1.43 H, Estim Creat Clear Calc 38.84, Est GFR (MDRD) Af Amer 49 L, Est GFR (MDRD) Non-Af 41 L, BUN/Creatinine Ratio 16.8, Glucose 358 H, Calcium 9.9, Total Bilirubin 0.70, AST 18, ALT 37, Alkaline Phosphatase 184 H, Troponin I < 0.015, Total Protein 9.0 H, Albumin 4.5, Globulin 4.5 H, Albumin/Globulin Ratio 1.0, Lipase 59 L 08/03/20 18:19: WBC 8.2, RBC 5.86 H, Hgb 15.6 H, Hct 50.2 H, MCV 85.7, MCH 26.6 L, MCHC 31.1 L, RDW Std Deviation 46.2 H, RDW Coeff of [place] 14.6, Plt Count 414, MPV 10.2, Immature Gran % (Auto) 0.200, Neut % (Auto) 78.9 H, Lymph % (Auto) 16.7 L, [place] % (Auto) 3.2, Eos % (Auto) 0.1, Baso % (Auto) 0.9, Absolute Neuts (auto) 6.5, Absolute Lymphs (auto) 1.37, Nucleated RBC % 0 08/03/20 18:19: Acetone Level Pending 08/03/20 18:40: Urine Color Yellow, Urine Clarity Clear, Urine pH 5.0, Ur Specific [place] 1.025, Urine Protein 100 H, Urine Glucose (UA) 1000 H, Urine Ketones 150 H, Urine Occult Blood 25 H, Urine Nitrite Negative, Urine Bilirubin Negative, Urine Urobilinogen Normal, Ur Leukocyte Esterase Negative, Urine RBC 0 SEEN, Urine WBC 0-5 SEEN, Ur Squamous Epith Cells 0-5 SEEN, Urine Bacteria 1+, Hyaline Casts 0-5 SEEN, Urine Mucus 0 SEEN Current Medications Insulin Human Lispro 100 unit/ (Sodium Chloride) 100 mls @ 7.41 mls/hr CONT INF .[id number] [facility]; Protocol Assessment/Plan All Active Problems (Last Reviewed 08/03/20 @ 18:[address] Robel Callahan MD) DKA (diabetic ketoacidoses) (Acute) Acute kidney injury superimposed on chronic kidney disease (Acute) Chest pain (Acute) Hypoglycemia (Acute) Lethargy (Acute) Nausea (Acute) The patient is a 54 y/o F w/ PMHx: Allergic Rhinitis, Chronic headaches, HTN, HLD, Diabetes mellitus type II with neuropathy, Chronic speech impediment, hx Pancreatitis, Chronic back pains who presents to the [facility] ED on 08/03/20 with history of ongoing nausea, emesis over the last 24 hours with inability to keep anything down otherwise feels fine. 1. DKA w/ Diabetes mellitus type II: Patient administered insulin drip and NS bolus in the ED. Will admit to ICU, continue on insulin drip, check serial K+, glucose w/ IVF changes pending these levels, serial chemistry, obtain mag, phos daily w/ repletion as needed, transition to home SC regimen when gap closed w/ overlap on drip, nutrition consultation. Encouraged diet and insulin regimen compliance. HgbA1c pending. 2. Acute kidney injury on CKD stage II: Secondary to presentation as noted #1 as well as GI losses. Admission BUN/Cr 24/1.43 with a creatinine clearance of 38, prior baseline creatinine noted to be 0.7 and a creatinine clearance above 80. Will need to aggressively hydrate, hold nephrotoxic medications and repeat serial BMPs per DKA protocol. If no improvement would plan FeNa assessment. 3. Hypertension: We will temporarily hold patient home benazepril given mild ANNETTE, resume once appropriate, PRN hydralazine. 4. Hyperlipidemia: Continue home statin regimen. 5. Diabetic neuropathy: We will continue patient home pregabalin regimen. 6. DVT prophylaxis: SCDs, Lovenox. 7. CODE status: Patient does not have LW or HCPOA set-up. Discussed CODE status at length including difference between FULL code, DNR-CCA and DNR-CC status. Following discussions about the differences in these status, requested DNR-CCA, no intubation. Given age discussed that this was likely premature usage of DNR-CCA status but patient was insistent following repeat discussions. Advanced Care Planning Face to Face Time: 16 minutes. Inpatient E&M: 09949 Init Hosp L3 Procedures: 38008 Advncd Care Plan 30 Min
[2020-08-03 19:31] LABS: Bedside Glucose 273 mg/dL (70-110)
[2020-08-03 19:57] LABS: Blood Gas Specimen Type VEN; O2 Delivery Device Room Air; Time Given 1848; VBG PO2 20 mmHg (25-40); VBG pCO2 34.6 mmHg (41-51); VBG pH 7.24 (7.32-7.42)
[2020-08-03 19:58] LABS: VBG BASE EXCESS -12 mmol/L (-1.0-3.5); VBG Bicarbonate 15 mmol/L (22-26); VBG SO2 26 % (50-70); VBG TCO2 16 mmol/L (23-33)
[2020-08-03 20:44] LABS: Magnesium 1.8 mg/dL (1.6-2.6); Phosphorus 2.1 mg/dL (2.5-4.9)
[2020-08-03 20:52] LABS: Anion Gap 13 (5-15); BUN 20 mg/dL (7-18); BUN/Creat Ratio 18.7 RATIO (10-20); Calcium,Total 8.5 mg/dL (8.5-10.1); Chloride 112 mmol/L (98-107); Creatinine, Serum 1.07 mg/dL (0.55-1.02); EST Glomerular Filtration Rate 57 mL/min (>60); Est Glom Filt Rate - Afr Amer 69 mL/min (>60); Glucose 180 mg/dL (74-106); Potassium 4.2 mmol/L (3.5-5.1); Sodium Level 140 mmol/L (136-145)
[2020-08-03] MEDS: proMETHazine 25 MG/ML Syringe 6.25 MG IV (22:16)
[2020-08-03 22:25] LABS: Bedside Glucose 137 mg/dL (70-110)
[2020-08-03 22:25] LABS: Bedside Glucose 176 mg/dL (70-110)
[2020-08-04] VITALS (17 sets, daily range): BP systolic 108–150; BP diastolic 60–107; PULSE 96–118; RESP 12–18; TEMP 36.7–37.2; O2SAT 95–100
[2020-08-04] MEDS: proCHLORPERazine 10 MG/2 ML Vial 5 MG IV (00:13)
[2020-08-04 00:16] LABS: Anion Gap 10 (5-15); BUN 19 mg/dL (7-18); BUN/Creat Ratio 21.7 RATIO (10-20); Calcium,Total 8.3 mg/dL (8.5-10.1); Chloride 113 mmol/L (98-107); Creatinine, Serum 0.88 mg/dL (0.55-1.02); EST Glomerular Filtration Rate 71 mL/min (>60); Est Glom Filt Rate - Afr Amer 86 mL/min (>60); Estimated Creatinine Clearance 63.11 ml/min; Glucose 116 mg/dL (74-106); Potassium 3.7 mmol/L (3.5-5.1); Sodium Level 141 mmol/L (136-145)
[2020-08-04 00:45] LABS: Bedside Glucose 108 mg/dL (70-110)
[2020-08-04 00:45] LABS: Bedside Glucose 127 mg/dL (70-110)
[2020-08-04 00:45] LABS: Bedside Glucose 124 mg/dL (70-110)
[2020-08-04] MEDS: Morphine 2 MG/ML Syringe IV (01:07)
[2020-08-04 03:21] LABS: Bedside Glucose 120 mg/dL (70-110)
[2020-08-04 03:21] LABS: Bedside Glucose 114 mg/dL (70-110)
[2020-08-04 03:21] LABS: Bedside Glucose 156 mg/dL (70-110)
[2020-08-04 03:21] LABS: Bedside Glucose 147 mg/dL (70-110)
[2020-08-04 04:02] LABS: Absolute Lymphocyte Count 1.42 X10^3/uL (0.83-4.51); Basophil# 0.04 X10^3/uL; Basophil% 0.6 % (0-1); Eosinophil# 0.01 X10^3/uL; Eosinophils% 0.1 % (0-5); Hematocrit 38.3 % (37-47); Hemoglobin 12.4 g/dL (12.0-15.0); Lymphocyte # 1.42 X10^3/ul (4.0); Lymphocyte % 20.5 % (19-41); Mean Corp Hgb Conc 32.4 g/dL (32-36); Mean Corpuscular Hgb 27.1 pg (27.0-32.0); Mean Corpuscular Volume 83.8 fL (81-99); Mean Platelet Vol. 10.1 fl (6.2-12.0); Monocyte# 0.46 X10^3/uL; Monocyte% 6.6 % (0-10); NRBC Flagged by Analyzer 0 % (0-5); Neutrophil % 72.1 % (47-70); Platelet Count 299 K/mm3 (150-450); RBC Distribution Width CV 14.6 % (11.6-14.6); RBC Distribution Width SD 44.6 fl (35.1-43.9); Red Blood Count 4.57 M/mm3 (4.2-5.4); White Blood Count 6.9 K/mm3 (4.4-11.0)
[2020-08-04 04:19] LABS: AST(SGOT) 16 U/L (15-37); Alanine Aminotransfer ALT/SGPT 25 U/L (13-56); Albumin, Serum 3.2 g/dL (3.2-5.0); Alkaline Phosphatase 120 U/L (45-117); Anion Gap 7 (5-15); BUN 17 mg/dL (7-18); BUN/Creat Ratio 20.3 RATIO (10-20); Calcium,Total 8.2 mg/dL (8.5-10.1); Chloride 112 mmol/L (98-107); Creatinine, Serum 0.84 mg/dL (0.55-1.02); EST Glomerular Filtration Rate 75 mL/min (>60); Est Glom Filt Rate - Afr Amer 91 mL/min (>60); Estimated Creatinine Clearance 66.11 ml/min; Globulin 3.1 g/dL (2.2-4.2); Glucose 171 mg/dL (74-106); Potassium 4.3 mmol/L (3.5-5.1); Protein, Total 6.3 g/dL (6.4-8.2); Sodium Level 139 mmol/L (136-145)
[2020-08-04] MEDS: 0.9% Normal Saline 1,000 ML 125 ML IV (04:25)
[2020-08-04] MEDS: Pregabalin 50 MG Capsule 100 MG PO ×3 (05:39→21:51)
--- NOTE | 2020-08-04 07:18 | PN_ITS ---
Patient Problems: Active and Suspected Problems (Last Reviewed 08/03/20 @ 18:[address] Robel Callahan MD) DKA (diabetic ketoacidoses) (Acute) Acute kidney injury superimposed on chronic kidney disease (Acute) Dehydration (Acute) Reason for Visit: Follow-up for DKA. Objective: Patient has history of diabetes mellitus type 2. She denies having DKA ever. Exact etiology unclear but seems patient having nausea and vomiting and could not eat or keep the food down. Currently symptoms have improved and patient had breakfast. Physical exam General: Alert, Oriented x3, Cooperative HEENT: Atraumatic, PERRLA, EOMI, Normocephalic Oral: No Gingival or Mucosal Lesions/ Ulcerations Neck: Supple, No JVD, Negative Carotid Bruits Lungs: Air entry diminished in bilateral lung bases. No crepitation/rhonchi Cardiovascular: Regular rate, Regular Rhythm, Normal S1, Normal S2, No murmurs Abdomen: Bowel Sounds Present, Soft, Non Tender, Non-Distended : No renal angle tenderness. No suprapubic tenderness. Urine is dark yellow. Extremities: Mild bilateral ankle edema, Capillary Refill Less than 3 Seconds Skin: No rashes, No breakdown Musculoskeletal: No Tenderness to Palpation of Joints or Extremities Neurological: Cranial nerves II-XII grossly intact, Deep Tendon Reflexes 2+/4 and Symmetrical, Neuro grossly intact Psych/Mental Status: Normal Affect, Appropriate. Vitals/I&O's: Vital Signs Temp Pulse Resp BP Pulse Ox 98.3 F 99 12 125/71 H 100 08/04/20 04:00 08/04/20 07:00 08/04/20 07:00 08/04/20 07:00 08/04/20 07:00 Oxygen Delivery Method Room Air Weight: 166 lb 14.239 oz Body Mass Index (BMI) 28.3 Finger Stick Blood Glucose 156 Intake and Output for Last 24 Hours 08/02/20 08/03/20 08/04/20 23:59 23:59 23:59 Intake Total 2025.72 / 2025.72 1128.15 / 1128.15 Output Total 300 / 300 850 / 850 Balance 1725.72 / 1725.72 278.15 / 278.15 Laboratory Results 08/03/20 18:07: POC Glucose 360 H 08/03/20 18:19: Sodium 134 L, Potassium 4.4, Chloride 103, Carbon Dioxide 13.0 L , Anion Gap 18 H, BUN 24 H, Creatinine 1.43 H, Estim Creat Clear Calc 38.84, Est GFR (MDRD) Af Amer 49 L, Est GFR (MDRD) Non-Af 41 L, BUN/Creatinine Ratio 16.8, Glucose 358 H, Calcium 9.9, Total Bilirubin 0.70, AST 18, ALT 37, Alkaline Phosphatase 184 H, Troponin I < 0.015, Total Protein 9.0 H, Albumin 4.5, Globulin 4.5 H, Albumin/Globulin Ratio 1.0, Lipase 59 L 08/03/20 18:19: WBC 8.2, RBC 5.86 H, Hgb 15.6 H, Hct 50.2 H, MCV 85.7, MCH 26.6 L, MCHC 31.1 L, RDW Std Deviation 46.2 H, RDW Coeff of Anamaria 14.6, Plt Count 414, MPV 10.2, Immature Gran % (Auto) 0.200, Neut % (Auto) 78.9 H, Lymph % (Auto) 16.7 L, Moody % (Auto) 3.2, Eos % (Auto) 0.1, Baso % (Auto) 0.9, Absolute Neuts (auto) 6.5, Absolute Lymphs (auto) 1.37, Nucleated RBC % 0 08/03/20 18:19: Acetone Level SMALL H 08/03/20 18:40: Urine Color Yellow, Urine Clarity Clear, Urine pH 5.0, Ur Specific [place] 1.025, Urine Protein 100 H, Urine Glucose (UA) 1000 H, Urine Ketones 150 H, Urine Occult Blood 25 H, Urine Nitrite Negative, Urine Bilirubin Negative, Urine Urobilinogen Normal, Ur Leukocyte Esterase Negative, Urine RBC 0 SEEN, Urine WBC 0-5 SEEN, Ur Squamous Epith Cells 0-5 SEEN, Urine Bacteria 1+, Hyaline Casts 0-5 SEEN, Urine Mucus 0 SEEN 08/03/20 18:48: Specimen Type MOHINI, VBG pH 7.24 L, VBG pO2 20 L, VBG HCO3 15 L, VBG Total CO2 16 L, VBG O2 Sat (Calc) 26 L, VBG Base Excess -12 L, POC Mix VBG pCO2 Pt Tmp 34.6 L, O2 Delivery Device Room Air, Blood Gas Notified Whom ED MD, Blood Gas Notified Time 1843 08/03/20 19:23: POC Glucose 273 H 08/03/20 20:20: Phosphorus 2.1 L, Magnesium 1.8 08/03/20 20:20: Sodium 140, Potassium 4.2, Chloride 112 H, Carbon Dioxide 15.0 L , Anion Gap 13, BUN 20 H, Creatinine 1.07 H, Estim Creat Clear Calc 51.90, Est GFR (MDRD) Af Amer 69, Est GFR (MDRD) Non-Af 57 L, BUN/Creatinine Ratio 18.7, Glucose 180 H, Calcium 8.5 08/03/20 20:31: POC Glucose 176 H 08/03/20 21:34: POC Glucose 137 H 08/03/20 22:26: POC Glucose 127 H 08/03/20 23:06: POC Glucose 124 H 08/03/20 23:40: POC Glucose 108 08/03/20 23:46: Sodium 141, Potassium 3.7, Chloride 113 H, Carbon Dioxide 18.0 L , Anion Gap 10, BUN 19 H, Creatinine 0.88, Estim Creat Clear Calc 63.11, Est GFR (MDRD) Af Amer 86, Est GFR (MDRD) Non-Af 71, BUN/Creatinine Ratio 21.7 H, Glucose 116 H, Calcium 8.3 L 08/04/20 00:44: POC Glucose 114 H 08/04/20 01:10: POC Glucose 120 H 08/04/20 02:15: POC Glucose 147 H 08/04/20 03:11: POC Glucose 156 H 08/04/20 03:50: Sodium 139, Potassium 4.3, Chloride 112 H, Carbon Dioxide 20.0 L , Anion Gap 7, BUN 17, Creatinine 0.84, Estim Creat Clear Calc 66.11, Est GFR (MDRD) Af Amer 91, Est GFR (MDRD) Non-Af 75, BUN/Creatinine Ratio 20.3 H, Glucose 171 H, Calcium 8.2 L, Total Bilirubin 0.40, AST 16, ALT 25, Alkaline Phosphatase 120 H, Total Protein 6.3 L, Albumin 3.2, Globulin 3.1, Albumin/Globulin Ratio 1.0 08/04/20 03:50: WBC 6.9, RBC 4.57, Hgb 12.4, Hct 38.3, MCV 83.8, MCH 27.1, MCHC 32.4, RDW Std Deviation 44.6 H, RDW Coeff of Anamaria 14.6, Plt Count 299, MPV 10.1, Immature Gran % (Auto) 0.100, Neut % (Auto) 72.1 H, Lymph % (Auto) 20.5, Moody % (Auto) 6.6, Eos % (Auto) 0.1, Baso % (Auto) 0.6, Absolute Neuts (auto) 5.0, Absolute Lymphs (auto) 1.42, Nucleated RBC % 0 08/04/20 03:50: Hemoglobin A1c Pending Current Medications Acetaminophen (Acetaminophen 325 Mg Tablet) 650 mg PO Q6H PRN PRN PRN Reason: Pain Score 1-10/Temp > 100.7 F Al Hydroxide/Mg Hydroxide (Mag Hydrox/Al Hydrox/Simeth 30 Ml Udc) 30 ml PO Q6H PRN PRN PRN Reason: Gastric Burning Albuterol Sulfate (Albuterol 2.5 Mg/3 Ml Vial.Neb.) 2.5 mg INHALATION Q2H PRN PRN PRN Reason: Dyspnea, wheezing Atorvastatin Calcium (Atorvastatin Calcium 80 Mg Tablet) 80 mg PO QHS FELICIA Last Admin: 08/03/20 23:54 Dose: Not Given Documented by: Dextrose (Dextrose 50%-Water 25 Gm/50 Ml Disp.Syrin) 0 gm IV X1 PRN; Protocol PRN Reason: HYPOGLYCEMIA Duloxetine HCl (Duloxetine Hcl 60 Mg Capsule) 60 mg PO DAILY [facility] Enoxaparin Sodium (Enoxaparin 40 Mg/0.4 Ml Syringe) 40 mg SC DAILY [facility] Famotidine (Famotidine 20 Mg Tablet) 20 mg PO DAILY [facility] Guaifenesin (Guaifenesin 10 Ml Udc (200mg/10ml)) 10 ml PO Q4H PRN PRN PRN Reason: COUGH Hydralazine HCl (Hydralazine 20 Mg/Ml Vial) 10 mg IV Q4H PRN PRN PRN Reason: SBP > 160 Sodium Chloride () 250 mls @ 15 mls/hr IV .[id number] PRN PRN Reason: Saline Flush Sodium Chloride () 250 mls @ 15 mls/hr IV .[id number] PRN PRN Reason: Additional IVPB Infusion Sodium Chloride () 1,000 mls @ 125 mls/hr IV .Q8H [facility] Last Admin: 08/04/20 04:25 Dose: 125 mls/hr Documented by: Influenza Virus Vaccine Quadrival (Influenza Vaccine (6mos+)/Pf 0.5 Ml Syringe) 0.5 ml IM .ONCE ONE Stop: 08/04/20 10:01 Insulin Glargine (Insulin Glargine 100 Units/Ml Pen) 40 units SC QHS [facility] Last Admin: 08/04/20 01:08 Dose: 40 u Documented by: Insulin Human Lispro (Insulin Lispro 100 Unit/Ml Insuln.Pen) 0 unit SC [facility]; Protocol Magnesium Hydroxide (Magnesium Hydroxide 30 Ml Udc) 30 ml PO DAILY PRN PRN PRN Reason: Constipation Melatonin (Melatonin 3 Mg Tablet) 3 mg PO QHS PRN PRN PRN Reason: INSOMNIA Ondansetron HCl (Ondansetron 4 Mg/2 Ml Vial) 4 mg IV Q8H PRN PRN PRN Reason: NAUSEA/VOMITING Potassium Phos/Sodium Phos (Na Biphos/Potassium Phosphate Packet) 1 packet PO 4X/DAY [facility] Last Admin: 08/03/20 23:55 Dose: Not Given Documented by: Pregabalin (Pregabalin 50 Mg Capsule) 100 mg PO TID [facility] Last Admin: 08/04/20 05:39 Dose: 100 mg Documented by: Prochlorperazine Edisylate (Prochlorperazine 10 Mg/2 Ml Vial) 5 mg IV Q4H PRN PRN PRN Reason: Breakthrough Nausea/Vomiting Last Admin: 08/04/20 00:13 Dose: 5 mg Documented by: Promethazine HCl (Promethazine 25 Mg/Ml Syringe) 6.25 mg IV Q4H PRN PRN PRN Reason: NAUSEA/VOMITING Last Admin: 08/03/20 22:16 Dose: 6.25 mg Documented by: Psyllium Hydrophilic Mucilloid (Psyllium 1 Packet) 1 packet PO DAILY PRN PRN PRN Reason: Constipation Senna/Docusate Sodium (Senna/Docusate Sodium 1 Tablet) 2 tablet PO BID PRN PRN PRN Reason: Constipation Sodium Chloride (0.9% Saline Lock 10 Ml Syringe) 10 - 40 ml IV UD PRN PRN Reason: SALINE FLUSH Throat Lozenges (Benzocaine/Menthol 1 Lozenge) 1 lozenge MUCOUS MEM Q2H PRN PRN PRN Reason: SORE THROAT STROKE Vital Signs/Narrative: Vital Signs Temp Pulse Resp BP Pulse Ox 08/04/20 07:00 99 12 125/71 H 100 08/04/20 06:00 98 15 132/63 H 100 08/04/20 05:00 96 13 125/71 H 98 08/04/20 04:00 98.3 F 99 12 124/69 H 98 08/04/20 03:27 100 Medical Necessity - Tobacco Use Smoking Status: Never smoker Tobacco Use: Non-smoker Assessment/Plan All Active Problems (Last Reviewed 08/03/20 @ 18:[address] Robel Callahan MD) DKA (diabetic ketoacidoses) (Acute) Acute kidney injury superimposed on chronic kidney disease (Acute) Dehydration (Acute) Chest pain (Acute) Hypoglycemia (Acute) Lethargy (Acute) Nausea (Acute) The patient is a 54 y/o F with history of Diabetes mellitus type II with neuropathy, who is admitted to [facility] ED on 08/03/20 withnausea, emesis over the last 24 hours with inability to keep anything down otherwise feels fine labs which are consistent with DKA. 1. DKA with Diabetes mellitus type II: Patient administered insulin drip and NS bolus in the ED. patient was admitted in ICU with DKA protocol, insulin drip, lab monitoring, IV fluid. Anion gap closed x2. Bicarb 20 is improving. BUN/creatinine normal. Glucose 171. A1c 11.3. At home, patient is on Metformin, Lantus 14 nightly and insulin lispro. Patient was switched to insulin lispro 10 units subcutaneous before meals and at bedtime and Lantus 40 units subcutaneous at bedtime daily along with sliding scale insulin coverage. Patient is being transferred to [facility] floor 2. Acute kidney injury on CKD stage II, prerenal etiology due to DKA: Admission BUN/Cr 24.43. UA shows proteinuria 100 along with ketonuria and glucosuria. With aggressive rehydration, BUN/creatinine is normal. Patient still looks dehydrated with dark yellow urine. 1 time 500 mL normal saline bolus and then half-normal saline at 125 mill per hour. Patient will need repeat UA on baseline for albuminuria to accurately classify CKD as an outpatient. 3. Hypertension: Blood pressure 125/71. Hold NATHANIEL inhibitor. 4. Hyperlipidemia: Continue home statin regimen. 5. Diabetic neuropathy: continue patient home pregabalin regimen. 6. DVT prophylaxis: SCDs, Lovenox. Patient's other comorbidities include allergic Rhinitis, Chronic headaches, history of pancreatitis, Chronic back pains Inpatient E&M: [id number] Subs Hosp L2
[2020-08-04 08:12] LABS: Hemoglobin A1c 11.3 % (3.8-5.6)
[2020-08-04 08:31] LABS: Bedside Glucose 175 mg/dL (70-110)
[2020-08-04 08:31] LABS: Bedside Glucose 182 mg/dL (70-110)
[2020-08-04] MEDS: Insulin Lispro 100 UNIT/ML INSULN.PEN SC ×4 (08:33→21:52)
[2020-08-04] MEDS: DULoxetine Hcl 60 MG Capsule PO (08:34)
[2020-08-04] MEDS: Famotidine 20 MG Tablet PO (08:35)
[2020-08-04] MEDS: Na Biphos/Potassium Phosphate PACKET 1 PACKET PO ×3 (08:35→21:51)
[2020-08-04] MEDS: Enoxaparin 40 MG/0.4 ML Syringe SC (08:35)
[2020-08-04 08:45] LABS: Bedside Glucose 188 mg/dL (70-110)
--- NOTE | 2020-08-04 09:06 | PCS.PANDOC ---
PANDEMIC DOCUMENTATION INITIATED: Date: 08/03/20 Time: 2009
[2020-08-04] MEDS: Insulin Lispro 100 UNIT/ML INSULN.PEN 10 UNIT SC ×3 (11:43→21:53)
[2020-08-04] MEDS: 0.45% Normal Saline 1,000 ML 125 ML IV (11:44)
[2020-08-04 11:51] LABS: Bedside Glucose 375 mg/dL (70-110)
--- NOTE | 2020-08-04 16:02 | NURSING ---
RN CM Assessment Introduced role of RN CM to patient.? Patient is alert, oriented and able?to participate in RN CM Assessment. ?Care providers, pharmacy, and demographics verified. Presentation: N/V Admit Dx: DKA Re-Admit: No Barriers/Issues: Patient with a speech impediment noted. Patient states d/t change in insurance- needs a new PCP as she currently does not have one. State used to see an fire hydrant mechanic for her diabetes but needs to re-establish with a new one. Takes both oral medication and Insulin for her diabetes and confirmed has been taking them and has them available with no issues. Confirmed has Glucometer to check her blood sugars at home. PCP: None, PCP list was provided Specialists: None currently [facility] Insurance: Padma Romo Showing secondary NICHOLAS but patient states that they stopped NICHOLAS. Rx Benefit:?Yes. Patient states no medication coverage/benefits but her insurance card states she has coverage. LNOK: Mother Shannan Miller LW/HPOA: None, information with mental health social worker rack card provided. Aware can return as an outpatient to complete at a later time. Living Arrangements:? Lives with her mother in a [facility], 1 step to enter home through the garage. ADL?s: Independent with ambulation and ADLs Transportation: Mother and same upon discharge. DME: Glucometer HHC: Past- cannot recall agency SNF: None Goal: Home and does not think will have any needs. Denies any issues, questions, or concerns with DC planning at this time. Aware RNCM will continue to follow should any emerging needs arise. DC PLAN: Home with no anticipated needs identified at this time. TORIBIO Cooper
[2020-08-04 17:06] LABS: Bedside Glucose 286 mg/dL (70-110)
[2020-08-04] MEDS: 0.9% Saline Lock 10 ML Syringe IV (20:00)
[2020-08-04] MEDS: Atorvastatin Calcium 80 MG Tablet PO (21:52)
[2020-08-04 22:20] LABS: Bedside Glucose 259 mg/dL (70-110)
[2020-08-05] VITALS (8 sets, daily range): BP systolic 133–145; BP diastolic 77–92; PULSE 90–133; RESP 18–20; TEMP 36.6–37.1; O2SAT 95–99
[2020-08-05] MEDS: Pregabalin 50 MG Capsule 100 MG PO ×2 (05:47→13:32)
[2020-08-05 07:16] LABS: Anion Gap 7 (5-15); BUN 18 mg/dL (7-18); BUN/Creat Ratio 21.3 RATIO (10-20); Calcium,Total 8.6 mg/dL (8.5-10.1); Chloride 110 mmol/L (98-107); Creatinine, Serum 0.84 mg/dL (0.55-1.02); EST Glomerular Filtration Rate 74 mL/min (>60); Est Glom Filt Rate - Afr Amer 90 mL/min (>60); Estimated Creatinine Clearance 66.11 ml/min; Glucose 193 mg/dL (74-106); Phosphorus 3.1 mg/dL (2.5-4.9); Potassium 3.5 mmol/L (3.5-5.1); Sodium Level 142 mmol/L (136-145)
[2020-08-05 07:45] LABS: Bedside Glucose 192 mg/dL (70-110)
[2020-08-05] MEDS: Insulin Lispro 100 UNIT/ML INSULN.PEN SC ×2 (08:17→11:58)
[2020-08-05] MEDS: Insulin Lispro 100 UNIT/ML INSULN.PEN 10 UNIT SC ×2 (08:18→12:01)
[2020-08-05] MEDS: DULoxetine Hcl 60 MG Capsule PO (08:20)
[2020-08-05] MEDS: Enoxaparin 40 MG/0.4 ML Syringe SC (08:20)
[2020-08-05] MEDS: Na Biphos/Potassium Phosphate PACKET 1 PACKET PO ×2 (08:21→13:33)
[2020-08-05] MEDS: Famotidine 20 MG Tablet PO (08:22)
[2020-08-05] MEDS: Lisinopril 2.5 MG Tablet PO (08:23)
[2020-08-05] MEDS: Acetaminophen 325 MG Tablet 650 MG PO (08:23)
--- NOTE | 2020-08-05 10:30 | DCINST_ITS ---
- Discharge Diagnoses Current Active Problems: Current Active and Chronic Problems (Last Reviewed 08/03/20 @ 18:[address] Robel Callahan MD) DKA (diabetic ketoacidoses) (Acute) Acute kidney injury superimposed on chronic kidney disease (Acute) Dehydration (Acute) Overweight (BMI 25.0-29.9) (Chronic) Type 2 diabetes mellitus (Chronic) Anxiety disorder (Chronic) Hypertension (Chronic) Hyperlipidemia (Chronic) You will use the following diet at home:: Calorie/Carbohydrate Controlled (specify 1200, 1400, etc) - Carb controlled diet, Cardiac Your food should be the consistency of: Mechanical soft (ground) Discharge Activity: May Not Drive - Until see his PCP in 2 weeks Weight Bearing Status: Weight bearing as tolerated Call your doctor if you observe: Fever of 101 or Higher, Coldness, Increased Pain, Numbness or Tingling, Change in Color, Inability to urinate, Shortness of breath, Dizziness, Fainting spells, Swelling in the ankles, Chest pain, Prolonged hiccoughing, Increased palpitations (irregular heartbeat), Calf discomfort, Uncontrolled pain Allergies/Adverse Reactions: Allergies empagliflozin [From Jardiance] Allergy (Unknown, Verified 08/03/20 17:56) Unknown amoxicillin Allergy (Verified 08/03/20 17:56) Itching dulaglutide [From Trulicity] Allergy (Verified 08/03/20 17:56) Itching Medications to take at Discharge Rosuvastatin Calcium [Crestor] 40 mg PO DAILY 05/26/16 Duloxetine HCl 60 mg PO DAILY 05/06/18 pregabalin 100 mg capsule 100 mg PO TID #90 cap 01/08/20 Benazepril HCl 5 mg PO DAILY #90 tab 08/05/20 Insulin Glargine [Lantus SoloStar Pen] 43 units SQ QHS #0 08/05/20 Insulin Lispro [Humalog KwikPen] 15 unit SC ACHS #1 insuln.pen 08/05/20 Insulin Lispro [Humalog KwikPen] See Protocol SC ACHS insuln.pen 08/05/20 Metformin HCl [Glucophage] 1,000 mg PO BIDAC #0 08/05/20 The following prescriptions were given: Insulin Lispro [Humalog KwikPen] 15 unit SC ACHS #1 insuln.pen Transmission Status: Pending to [id number] Primary Care Physician: Care Physician,No Primary [Primary Care Provider] - Please follow up with your Primary Care Physician in: in 1-2 week Test Results: Test results from this visit will be discussed in further detail at your follow- up appointment, if applicable.
--- NOTE | 2020-08-05 11:12 | PHA.DC.MR ---
Pharmacy Service has performed discharge medication reconciliation for this patient. The patient's discharge medication list was reviewed for discrepancies and discrepancies were resolved. Home Medications Rosuvastatin Calcium [Crestor] 40 mg PO DAILY 05/26/16 Duloxetine HCl 60 mg PO DAILY 05/06/18 pregabalin 100 mg capsule 100 mg PO TID #90 cap 01/08/20 benazepril 10 mg tablet 10 mg PO DAILY #90 tab 01/20/20 Insulin Glargine [Lantus SoloStar Pen] 40 units SQ QHS 08/03/20 Insulin Lispro [Humalog KwikPen] 0 units SQ TID 08/03/20 Metformin HCl [Glucophage] 1,000 mg PO BIDAC 08/03/20
--- NOTE | 2020-08-05 11:19 | DS.PCM_ITS ---
Discharge Date and Diagnosis - Problem List Patient Problems: Active and Suspected Problems (Last Reviewed 08/03/20 @ 18:[address] Robel Callahan MD) DKA (diabetic ketoacidoses) (Acute) Acute kidney injury superimposed on chronic kidney disease (Acute) Dehydration (Acute) Date of Admission: 08/03/20 Date of Discharge: 08/05/20 - Primary Discharge Diagnosis Acute Problems: Active Problems (Last Reviewed 08/03/20 @ 18:[address] Robel Callahan MD) DKA (diabetic ketoacidoses) (Acute) Acute kidney injury superimposed on chronic kidney disease (Acute) Dehydration (Acute) - Secondary Discharge Diagnosis Chronic Problems: Chronic Problems (Last Reviewed 08/03/20 @ 18:[address] Robel Callahan MD) Overweight (BMI 25.0-29.9) (Chronic) Mixed hyperlipidemia (Chronic) Type 2 diabetes mellitus (Chronic) Hiatal hernia (Chronic) Anxiety disorder (Chronic) Hypertension (Chronic) Hyperlipidemia (Chronic) Hospital Course and Treatment Operations: None Summary of Care Provided: [] The patient is a 54 y/o F with history of Diabetes mellitus type II with neuropathy, who is admitted to [facility] ED on 08/03/20 withnausea, emesis over the last 24 hours with inability to keep anything down otherwise feels fine labs which are consistent with DKA. 1. DKA with Diabetes mellitus type II: Patient administered insulin drip and NS bolus in the ED. patient was admitted in ICU with DKA protocol, insulin drip, lab monitoring, IV fluid. Anion gap closed x2. Bicarb 20 is improving. BUN/creatinine normal. Glucose 171. A1c 11.3. At home, patient is on Metformin, Lantus 14 nightly and insulin lispro. Patient was transferred to regular MedSurg floor. Humalog insulin and Lantus insulin was titrated up. Glucose in the range of 190- 260. Humalog insulin dose was increased to 15 units subcutaneous 3 times daily before meals and Lantus dose 43 units at bedtime. Patient used to follow Dr. Robel Callahan but she does not accept her insurance. Patient was advised to choose one primary care doctor and case management social worker to help that. She knows how to take insulin. Patient is discharged on Humalog insulin 15 subcutaneous 3 times daily and Lantus 43 units at night. Advised to hold Metformin for next 5 days. 2. Acute kidney injury on CKD stage II, prerenal etiology due to DKA: Admission BUN/Cr 24/1.43. UA shows proteinuria 100 along with ketonuria and glucosuria. With aggressive rehydration, BUN/creatinine is normal. Patient still looks dehydrated with dark yellow urine. 1 time 500 mL normal saline bolus and then half-normal saline at 125 mill per hour. Patient will need repeat UA on baseline for albuminuria and BMP to accurately classify CKD as an outpatient. BUN/creatinine is on baseline. Benazepril 5 mg to resume from tomorrow a.m. 3. Hypertension: Blood pressure 125/71. As mentioned above 4. Hyperlipidemia: Continue home statin regimen. 5. Diabetic neuropathy: continue patient home pregabalin regimen. 6. DVT prophylaxis: SCDs, Lovenox. Patient's other comorbidities include allergic Rhinitis, Chronic headaches, history of pancreatitis, Chronic back pains. Discharge medication reconciliation done. Discharge follow-up instructions completed. Discharge process discussed with the patient and all questions were answered to patient's satisfaction. Total time spent, exact 35 minutes on discharge meds reconciliation, examination, coordination of care with nurses and ancillary staff, review of imaging and blood test and discussion with the patient on follow-up instru ctions Patient Problems: Active and Suspected Problems (Last Reviewed 08/03/20 @ 18:[address] Robel Callahan MD) DKA (diabetic ketoacidoses) (Acute) Acute kidney injury superimposed on chronic kidney disease (Acute) Dehydration (Acute) Objective: Patient has history of anxiety with possible MRDD as per nursing staff. Heart rate in 100s. Blood pressure 134/75. Patient complained of musculoskeletal lower back pain. UA is negative of pyuria. Urine culture shows mixed gram- positive organism. Patient does not have burning micturition but chronic increased frequency. Physical exam General: Alert, Oriented x3, Cooperative HEENT: Atraumatic, PERRLA, EOMI, Normocephalic Oral: No Gingival or Mucosal Lesions/ Ulcerations Neck: Supple, No JVD, Negative Carotid Bruits Lungs: Air entry diminished in bilateral lung bases. No crepitation/rhonchi Cardiovascular: Regular rate, Regular Rhythm, Normal S1, Normal S2, No murmurs Abdomen: Bowel Sounds Present, Soft, Non Tender, Non-Distended : No renal angle tenderness. No suprapubic tenderness. Urine is clear. Extremities: Mild bilateral ankle edema, Capillary Refill Less than 3 Seconds Skin: No rashes, No breakdown Musculoskeletal: No Tenderness to Palpation of Joints or Extremities Neurological: Cranial nerves II-XII grossly intact, Deep Tendon Reflexes 2+/4 and Symmetrical, Neuro grossly intact Psych/Mental Status: Normal Affect, Appropriate. - Physical Exam Vitals/I&O's: Vital Signs Temp Pulse Resp BP Pulse Ox 97.8 F 97 18 141/90 H 99 08/05/20 02:05 08/05/20 02:05 08/05/20 02:05 08/05/20 02:05 08/05/20 02:05 Oxygen Flow Rate (L/min) 2 Oxygen Delivery Method Room Air Weight: 165 lb 8 oz Body Mass Index (BMI) 28.3 Finger Stick Blood Glucose 156 Intake and Output for Last 24 Hours 08/03/20 08/04/20 08/05/20 23:59 23:59 23:59 Intake Total 2025.72 / 2025.72 3743.15 / 3743.15 Output Total 300 / 300 1450 / 1450 Balance 1725.72 / 1725.72 2293.15 / 2293.15 Laboratory Results 08/04/20 03:45: POC Glucose 175 H 08/04/20 03:50: Hemoglobin A1c 11.3 H 08/04/20 05:37: POC Glucose 182 H 08/04/20 07:35: Acetone Level SMALL H 08/04/20 08:29: POC Glucose 188 H 08/04/20 11:42: POC Glucose 375 H 08/04/20 17:00: POC Glucose 286 H 08/04/20 21:47: POC Glucose 259 H 08/05/20 06:22: Sodium 142, Potassium 3.5, Chloride 110 H, Carbon Dioxide 25.0, Anion Gap 7, BUN 18, Creatinine 0.84, Estim Creat Clear Calc 66.11, Est GFR (MDRD) Af Amer 90, Est GFR (MDRD) Non-Af 74, BUN/Creatinine Ratio 21.3 H, Glucose 193 H, Calcium 8.6, Phosphorus 3.1, Magnesium 2.0 08/05/20 07:41: POC Glucose 192 H Current Medications Acetaminophen (Acetaminophen 325 Mg Tablet) 650 mg PO Q6H PRN PRN PRN Reason: Pain Score 1-10/Temp > 100.7 F Albuterol Sulfate (Albuterol 2.5 Mg/3 Ml Vial.Neb.) 2.5 mg INHALATION Q2H PRN PRN PRN Reason: Dyspnea, wheezing Atorvastatin Calcium (Atorvastatin Calcium 80 Mg Tablet) 80 mg PO QHS [facility] Last Admin: 08/04/20 21:52 Dose: 80 mg Documented by: Dextrose (Dextrose 50%-Water 25 Gm/50 Ml Disp.Syrin) 0 gm IV X1 PRN; Protocol PRN Reason: Hypoglycemia Duloxetine HCl (Duloxetine Hcl 60 Mg Capsule) 60 mg PO DAILY [facility] Last Admin: 08/04/20 08:34 Dose: 60 mg Documented by: Enoxaparin Sodium (Enoxaparin 40 Mg/0.4 Ml Syringe) 40 mg SC DAILY [facility] Last Admin: 08/04/20 08:35 Dose: 40 mg Documented by: Famotidine (Famotidine 20 Mg Tablet) 20 mg PO DAILY [facility] Last Admin: 08/04/20 08:35 Dose: 20 mg Documented by: Glucagon (Glucagon 1 Mg/Ml Syringe) 1 mg IM .X1 PRN PRN Reason: Hypoglycemia Hydralazine HCl (Hydralazine 20 Mg/Ml Vial) 10 mg IV Q4H PRN PRN PRN Reason: SBP more than 180 mmHg Sodium Chloride () 250 mls @ 15 mls/hr IV .[id number] PRN PRN Reason: Saline Flush Sodium Chloride () 250 mls @ 15 mls/hr IV .[id number] PRN PRN Reason: Additional IVPB Infusion Insulin Glargine (Insulin Glargine 100 Units/Ml Pen) 40 units SC QHS [facility] Last Admin: 08/04/20 21:52 Dose: 40 u Documented by: Insulin Human Lispro (Insulin Lispro 100 Unit/Ml Insuln.Pen) 0 unit SC ACHS [facility]; Protocol Last Admin: 08/04/20 21:52 Dose: 3 u Documented by: Insulin Human Lispro (Insulin Lispro 100 Unit/Ml Insuln.Pen) 10 unit SC [facility] Last Admin: 08/04/20 21:53 Dose: 10 u Documented by: Lisinopril (Lisinopril 2.5 Mg Tablet) 2.5 mg PO DAILY [facility] Melatonin (Melatonin 3 Mg Tablet) 3 mg PO QHS PRN PRN PRN Reason: INSOMNIA Ondansetron HCl (Ondansetron 4 Mg/2 Ml Vial) 4 mg IV Q8H PRN PRN PRN Reason: NAUSEA/VOMITING Potassium Chloride (Potassium Chloride 20 Meq Tablet) 40 meq PO Q3H [facility] Stop: 08/05/20 11:01 Potassium Phos/Sodium Phos (Na Biphos/Potassium Phosphate Packet) 1 packet PO 4X/DAY [facility] Last Admin: 08/04/20 21:51 Dose: 1 packet Documented by: Pregabalin (Pregabalin 50 Mg Capsule) 100 mg PO TID [facility] Last Admin: 08/05/20 05:47 Dose: 100 mg Documented by: Prochlorperazine Edisylate (Prochlorperazine 10 Mg/2 Ml Vial) 5 mg IV Q4H PRN PRN PRN Reason: Breakthrough Nausea/Vomiting Last Admin: 08/04/20 00:13 Dose: 5 mg Documented by: Promethazine HCl (Promethazine 25 Mg/Ml Syringe) 6.25 mg IV Q4H PRN PRN PRN Reason: NAUSEA/VOMITING Last Admin: 08/03/20 22:16 Dose: 6.25 mg Documented by: Psyllium Hydrophilic Mucilloid (Psyllium 1 Packet) 1 packet PO DAILY PRN PRN PRN Reason: Constipation Senna/Docusate Sodium (Senna/Docusate Sodium 1 Tablet) 2 tablet PO BID PRN PRN PRN Reason: Constipation Sodium Chloride (0.9% Saline Lock 10 Ml Syringe) 10 - 40 ml IV UD PRN PRN Reason: SALINE FLUSH Last Admin: 08/04/20 20:00 Dose: 20 ml Documented by: Throat Lozenges (Benzocaine/Menthol 1 Lozenge) 1 lozenge MUCOUS MEM Q2H PRN PRN PRN Reason: SORE THROAT Home Medications: Medications to take at Discharge Rosuvastatin Calcium [Crestor] 40 mg PO DAILY 05/26/16 Duloxetine HCl 60 mg PO DAILY 05/06/18 pregabalin 100 mg capsule 100 mg PO TID #90 cap 01/08/20 Benazepril HCl 5 mg PO DAILY #90 tab 08/05/20 Insulin Glargine [Lantus SoloStar Pen] 43 units SQ QHS #0 08/05/20 Insulin Lispro [Humalog KwikPen] 15 unit SC ACHS #1 insuln.pen 08/05/20 Insulin Lispro [Humalog KwikPen] See Protocol SC [facility] insuln.pen 08/05/20 Metformin HCl [Glucophage] 1,000 mg PO BIDAC #0 08/05/20 Following Prescriptions Were Given to Patient: Insulin Lispro [Humalog KwikPen] 15 unit [facility] #1 insuln.pen Transmission Status: Received by [id number] Primary Care Physician: Care Physician,No Primary [Primary Care Provider] - Medical Necessity - Tobacco Use Smoking Status: Never smoker Tobacco Use: Non-smoker Meaningful Use Info Meaningful Use Diagnoses (Choose all that apply): None applicable Inpatient E&M: [id number] [facility]
[2020-08-05 11:21] LABS: Bedside Glucose 306 mg/dL (70-110)
[2020-08-05] MEDS: Ibuprofen 600 MG Tablet PO (13:32)
[2020-08-05] MEDS: Metoprolol Tartrate 25 MG Tablet PO (14:13)
--- NOTE | 2020-08-06 14:49 | CASEMGMT ---
BECKIE HATHAWAY Discharge Follow-up Phone Call: KAREN: 10 Strata: 3 Call Date: 08/06/20 Discharge Date: 08/05/20 Time of Call: 1450 Duration: 1 min Admitting Diagnosis: DKA BECKIE HATHAWAY attempted to complete follow-up phone call after recent hospitalization. No answer, voice message left with return contact information.
== END 2020-08-05 16:27 | disposition home or self-care (01) | DRG 639 ==
LOC: ED 19:22 → ICU 19:39 → MS3 08-04 10:32
PROVIDERS: Admitting Provider Family Medicine; Emergency Provider Emergency Medicine; Visit Provider Internal Medicine
DX: E11.10 Type 2 diabetes mellitus with ketoacidosis without coma (principal); E86.0 Dehydration; I12.9 Hypertensive chronic kidney disease with stage 1 through stage 4 chronic kidney disease, or unspecified chronic kidney disease; E11.22 Type 2 diabetes mellitus with diabetic chronic kidney disease; N18.2 Chronic kidney disease, stage 2 (mild); Z79.4 Long term (current) use of insulin; Z79.899 Other long term (current) drug therapy; E11.40 Type 2 diabetes mellitus with diabetic neuropathy, unspecified; E78.2 Mixed hyperlipidemia; Z66 Do not resuscitate; M54.5 Low back pain; G89.29 Other chronic pain
CPT/HCPCS: 36415; 80048; 80053; 80061; 81001; 82009; 82043; 82570; 82803; 82962; 83036; 83690; 83735; 84100; 84443; 84484; 85025; 87086; 87088; 93005; 97802; 99251; 99282; J7030; J7040; A4216; G0463

== ENCOUNTER → 2020-09-16 15:00 | Outpatient (CLI) | payer MEDICARE, SELFPAY ==
[2020-08-03 20:23] VITALS: BMI 28.3
== END ==
PROVIDERS: Referring Provider Nurse Practitioner Primary Care; Visit Provider Nurse Practitioner Primary Care
DX: R09.81 Nasal congestion (principal)
CPT/HCPCS: 87635; C9803; U0002

== ENCOUNTER 2020-09-22 19:03 | Outpatient (RCR) | payer MEDICARE, SELFPAY ==
[2020-08-03 20:23] VITALS: BMI 28.3
[2020-09-22 19:14] LABS: Color, Urine Yellow (Yellow); Glucose, Dipstick 1000 mg/dl (Normal); Leukocyte Esterase-Dipstick Negative /ul (Negative); Nitrite-Dipstick Negative (Negative); Occult Blood-Urine Negative /ul (Negative); Protein-Dipstick Negative (Negative); Urine Bilirubin Dipstick Negative (Negative); Urine Clarity Clear (Clear); Urine Urobilinogen Normal (Normal)
[2020-09-22 19:18] LABS: Ketone-Dipstick 150 mg/dl (Negative)
== END 2020-09-22 19:04 ==
LOC: HHLAB 19:03
PROVIDERS: Visit Provider Student in an Organized Health Care Education/Training Program
DX: R35.0 Frequency of micturition (principal)
CPT/HCPCS: 81002; 87086; 87088

== ENCOUNTER 2021-03-31 13:50 | Emergency (ER) | payer MEDICARE, MEDICAID, SELFPAY ==
[2021-03-31 13:51] VITALS: BP 180/86; PULSE 133; RESP 20; TEMP 35.8; O2SAT 99; BMI 29.0
--- NOTE | 2021-03-31 14:27 | CM.ED ---
SW Note: Referral Source: Case Find Referral Reason: No PCP SW reviewed tracker board and noted that patient had no PCP. SW met with patient and her mother in the room. They both indicated that patient has PCP, Dr. Joe. No further SW services needed. SW remains available if needs arise. Plan: Patient reports she has a PCP. Janet ALARCON
--- NOTE | 2021-03-31 14:35 | RAD_ITS ---
STUDY: X-RAY CHEST REASON FOR EXAM: Female, 55 years old. Chest pain TECHNIQUE: Single AP portable view of the chest. COMPARISON: Comparison is made with prior study dated 12/18/2018. FINDINGS: The lungs are clear and expanded. There is no demonstrated pleural abnormality. Normal size heart. Normal mediastinum and nikolay. Normal visualized pulmonary arteries. Normal visualized aortic arch and descending thoracic aorta. Normal visualized thoracic spine. Normal visualized ribs, clavicles, and shoulders. There is no demonstrated abnormality of the visualized soft tissue structures of the upper abdomen. RAD/Chest 1 View (Portable) IMPRESSION: Normal x-ray examination of the chest. Electronically Signed: Prosper Soliman MD at 15:03 EDT , Service support ,
--- NOTE | 2021-03-31 14:35 | EKG12_ITS ---
Test Reason : CP Blood Pressure : / mmHG Vent. Rate : 108 BPM Atrial Rate : 108 BPM P-R Int : 152 ms QRS Dur : 078 ms QT Int : 330 ms P-R-T Axes : 048 029 061 degrees QTc Int : 442 ms Sinus tachycardia Otherwise normal ECG Confirmed by MEGAN REY, ERASTO ([id number]), editorial cartoonist SWETA OCASIO ([id number]) on 04/01/2021 10:21:22 A M Referred By: FRANSISCA Confirmed By:LINDA GUZMAN MD
--- NOTE | 2021-03-31 14:36 | ED.VIS.CHEST ---
HPI History of Present Illness Chief Complaint: Flank Pain Informant: patient and parent Onset/Context/Timing Onset: Today (7 hours ago, woke up with it) Activity at onset: sleep Timing: Continuous Quality: Positive for Sharp Location: Left Chest (Radiation down left arm) Current Severity: Moderate Maximum Severity: Moderate Worsened By: Breathing and Coughing; Not Worsened By Exertion Relieved By: Nothing (Tried Vicodin) Associated Symptoms: Negative for Nausea, Vomiting, Diaphoresis, Dyspnea, Cough, Fever, Lightheadedness, Acid Reflux and Palpitations Narrative Narrative: 55-year-old female woke up with this chest discomfort radiating down the left arm this morning. States she has had this before but unknown why. States at one point in the remote past she was referred to cardiology to get checked out and they told her her heart was good after doing a stress test and some other testing. She denies any recent illness, injury, leg pain or swelling, history DVT or PE, recent travel out of the area, immobilization, hospitalization, or surgery. No urinary symptoms or low back pain. CVD Risk Factors: Positive for Diabetes; Negative for Hypertension, Hypercholesterolemia, Family History 1' </=55 and Smoking PE Risk Factors: Negative for Recent Travel/Surgery, Recent Immobilization, Prior DVT or PE, Cancer and OCP + Smoking + >/=35 [facility] Medical History (Updated 03/31/21 @ 17:[address] Zaid Chacon MD) Arthritis Back problem Chronic headaches Neuropathy Pancreatitis Seasonal allergies Type 2 diabetes mellitus Home Medications rosuvastatin 40 mg PO DAILY 05/26/16 [History Last Taken 08/02/20] duloxetine 60 mg PO DAILY 05/06/18 [History Last Taken 08/03/20] pregabalin 100 mg capsule 100 mg PO TID #90 cap 01/08/20 [Rx Last Taken 08/03/20] benazepril 5 mg PO DAILY #90 tab 08/05/20 [Rx Last Taken 08/03/20] insulin glargine 43 units SQ QHS #0 08/05/20 [Rx Last Taken 08/02/20] insulin lispro 15 unit SQ TIDCM #1 insuln.pen 08/05/20 [Rx Last Taken Unknown] insulin lispro See Protocol SC ACHS insuln.pen 08/05/20 [Rx Last Taken Unknown] metformin 1,000 mg PO BIDAC #0 08/05/20 [Rx Last Taken 08/03/20] meloxicam 15 mg DAILY 11/03/20 [History Last Taken Unknown] Allergy/AdvReac Type Severity Reaction Status Date / Time empagliflozin Allergy Unknown Unknown Verified 03/31/21 13:51 [From Jardiance] amoxicillin Allergy Itching Verified 03/31/21 13:51 dulaglutide [From Trulicity] Allergy Itching Verified 03/31/21 13:51 Family History Unknown Arthritis Diabetes Myocardial infarction Heart disease Hypertension Osteoporosis Severe allergic reaction Skin cancer Social History Smoking Status: Never smoker alcohol intake: never substance use type: does not use what type of physical activity do you participate in: none ROS ROS ED Constitutional Constitutional ED: Denies chills or fever(s) Eyes Eyes: Denies change in vision or diplopia ENT ENT ED: Denies rhinorrhea or sore throat Cardiovascular Cardiovascular: Reports chest pain; Denies palpitations Respiratory/Chest Respiratory/Chest: Denies cough or dyspnea Gastrointestinal Gastrointestinal: Reports constipation; Denies abdominal pain, diarrhea, nausea or vomiting Genitourinary Genitourinary ED: Denies dysuria or hematuria Musculoskeletal Musculoskeletal: Reports as per HPI and extremity pain; Denies back pain or neck pain Integumentary Denies abscess or rash Neurologic Neurologic: Denies headache(s), paresthesias or weakness Psychiatric Psychiatric: Denies anxiety or suicidal thoughts EXAM Physical Exam Const Vital Signs: 03/31/21 13:51 03/31/21 15:01 03/31/21 15:02 Temperature 96.5 F L Temperature Source Temporal Pulse Rate 133 H 106 H Respiratory Rate 20 H 16 Respiratory Effort Respiratory Pattern Blood Pressure 180/86 H Blood Pressure Mean 117 Pulse Ox 99 95 98 Oxygen Delivery Method Room Air Room Air Room Air 03/31/21 15:49 03/31/21 16:54 03/31/21 17:01 Temperature Temperature Source Pulse Rate 102 H 108 H Respiratory Rate 18 Respiratory Effort Normal Non-Labored Respiratory Pattern Normal Blood Pressure 164/97 H 136/95 H Blood Pressure Mean 108 Pulse Ox 95 Oxygen Delivery Method Room Air Positive well nourished and well developed General Appearance ED: well developed and NAD HEENT Reports moist mucous membranes normocephalic and atraumatic Eyes PERRL and EOMs intact bilaterally Neck full ROM, no lymphadenopathy, supple and no JVD Resp normal respiratory effort and clear to auscultation bilaterally Cardio regular rate, regular rhythm and no murmurs Cardio Narrative: Tachycardia resolved on exam, was tachycardic and triage GI non-tender and non-distended Auscultation: normoactive bowel sounds Palpation: soft Back/Spine no CVA tenderness General Back: other FROM Extremity normal to inspection, no calf tenderness and no pedal edema General Extremety ED: Negative for edema, pulses abnormal or tenderness General Extremity: Negative for edema or pulses abnormal Neuro oriented x3, CN's II-XII intact bilaterally and no sensory deficits noted Sensorium / Orientation: awake and alert Motor Exam: strength 5/5 throughout Skin no rashes or lesions noted and no wounds Heart Score History: Slightly/Non-Suspicious ECG: Normal Age: >45 - <65 years Risk Factors: 1 or 2 Risk Factors Troponin: </= Normal Limit Score: 2 MDM MDM MDM Narrative Medical decision making narrative: Patient's work-up is negative including a D-dimer, however on reexamination she states the pain is more in her left chest and radiating up into her left trapezius/back area, I later back and reexamined her, her abdomen was very benign before but now she is actually has some tenderness in the deep left upper quadrant. She is given a GI cocktail, given GI etiologies are in the differential diagnosis and esophageal discomfort, and I sent her for CT to rule out splenic etiologies. The results are as below, I do not think this is pyelonephritis with her 505 white count and lack of symptoms and CVA tenderness. It is possible the colon distended with stool in the splenic flexure is causing Kehr sign. Regardless, I do not think she has an emergent condition right now and is stable for discharge home. If she truly had a kidney stone that was passed the pain should resolve. GI cocktail did not help her discomfort so I did give her a dose of morphine and nitroglycerin prior to discharge, simply to see if they would help her discomfort. At discharge she confirms that she has been quite constipated for some time. We discussed ways to treat that at home. Follow-up advised. Lab Data Attestation: I reviewed the patient's lab results. Labs: Laboratory Results - last 24 hr 03/31/21 03/31/21 03/31/21 15:00 15:00 15:00 WBC 5.5 RBC 4.65 Hgb 12.8 Hct 40.9 MCV 88.0 MCH 27.5 MCHC 31.3 L RDW Std Deviation 48.1 H RDW Coeff of Anamaria 15.1 H Plt Count 299 MPV 9.6 Immature Gran % (Auto) 0.400 Neut % (Auto) 65.8 Lymph % (Auto) 26.9 Twiggs % (Auto) 5.3 Eos % (Auto) 0.7 Baso % (Auto) 0.9 Absolute Neuts (auto) 3.6 Absolute Lymphs (auto) 1.48 Nucleated RBC % 0 D-Dimer Quant (PE/DVT) 0.34 Sodium 137 Potassium 3.9 Chloride 104 Carbon Dioxide 29.0 Anion Gap 4 L BUN 21 H Creatinine 0.82 Estim Creat Clear Calc 66.94 Est GFR (MDRD) Af Amer 92 Est GFR (MDRD) Non-Af 76 BUN/Creatinine Ratio 25.5 H Glucose 268 H Calcium 9.3 Troponin I High Sens 6 Radiography Diagnostic Testing: Radiology Impression Chest X-Ray 03/31/21 14:35 IMPRESSION: Normal x-ray examination of the chest. Electronically Signed: Prosper Soliman MD at 15:03 EDT , Service support , Abdomen/Pelvis CT 03/31/21 16:12 IMPRESSION: Mild distention of the left renal collecting system without evidence for renal or obstructing ureteral calculus, uncertain etiology. Possible recently passed calculus. Moderate stool in the colon. Leiomyomatous uterus. Individualized dose optimization techniques were used for this CT. at 1650 Reported and signed by: Genevieve Lamb MD Electronically Signed: Genevieve Lamb MD at 16:49 EDT Tel , Service support , EKG Initial EKG: Attestation: I personally reviewed and interpreted this EKG as follows: Interpretation: No Acute Injury Pattern and Sinus Tachycardia Prior EKG tracings: available for review Prior: Unchanged Discharge Plan Triage Chief Complaint: Flank Pain ED Provider: Zaid Chacon Dx/Rx/DC Orders Clinical Impression: Acute left flank pain, Left-sided chest pain, Constipation Instructions: ED Constipation (Adult), ED Chest Pain, Uncertain Cause, ED Flank Pain, Uncertain Cause Prescriptions: No Action rosuvastatin 40 MG tablet 40 mg PO DAILY RF: 0 duloxetine 60 MG capsule,delayed release(DR/EC) 60 mg PO DAILY RF: 0 insulin lispro 100 UNIT/ML insulin pen See Protocol unit SC ACHS RF: 0 metformin 500 MG tablet 1,000 mg PO BIDAC Qty: 0 RF: 0 benazepril 10 mg tablet 5 mg PO DAILY Qty: 90 RF: 1 insulin glargine 100 UNITS/ML insulin pen 43 units SQ QHS Qty: 0 RF: 0 insulin lispro 100 UNIT/ML insulin pen 15 unit SQ TIDCM Qty: 1 RF: 2 meloxicam 15 MG tablet 15 mg DAILY RF: 0 pregabalin 100 mg capsule 100 mg PO TID Qty: 90 RF: 0 Primary Care Provider: Care Physician,No Primary Referrals: Care Physician,No Primary [Primary Care Provider] - Doctor,Your [STAFF PHYSICIAN] - 3-5 Days if not improving Disposition Disposition: Home, Self Care
[2021-03-31] MEDS: Aspirin 81 MG TAB.CHEW 324 MG PO (14:56)
[2021-03-31 15:01] VITALS: O2SAT 95
[2021-03-31 15:02] VITALS: PULSE 106; RESP 16; O2SAT 98
[2021-03-31 15:12] LABS: Absolute Lymphocyte Count 1.48 X10^3/uL (0.83-4.51); Absolute Neutrophil Count 3.6 X10^3/uL (2.0-7.7); Basophil# 0.05 X10^3/uL; Basophil% 0.9 % (0-1); Eosinophil# 0.04 X10^3/uL; Eosinophils% 0.7 % (0-5); Hematocrit 40.9 % (37-47); Hemoglobin 12.8 g/dL (12.0-15.0); Lymphocyte # 1.48 X10^3/ul (0.83-4.51); Lymphocyte % 26.9 % (19-41); Mean Corp Hgb Conc 31.3 g/dL (32-36); Mean Corpuscular Hgb 27.5 pg (27.0-32.0); Mean Platelet Vol. 9.6 fl (6.2-12.0); Monocyte# 0.29 X10^3/uL; Monocyte% 5.3 % (0-10); NRBC Flagged by Analyzer 0 % (0-5); Neutrophil # 3.62 X10^3/uL (2.7-7.7); Neutrophil % 65.8 % (47-70); Platelet Count 299 K/mm3 (150-450); RBC Distribution Width CV 15.1 % (11.6-14.6); RBC Distribution Width SD 48.1 fl (35.1-43.9); Red Blood Count 4.65 M/mm3 (4.2-5.4); White Blood Count 5.5 K/mm3 (4.4-11.0)
[2021-03-31 15:24] LABS: D-Dimer Quantitative (DVT/PE) 0.34 FEU/ug/m (0.27-0.49)
[2021-03-31 15:29] LABS: Anion Gap 4 (5-15); BUN 21 mg/dL (7-18); BUN/Creat Ratio 25.5 RATIO (10-20); Calcium,Total 9.3 mg/dL (8.5-10.1); Chloride 104 mmol/L (98-107); Creatinine, Serum 0.82 mg/dL (0.55-1.02); EST Glomerular Filtration Rate 76 mL/min (>60); Est Glom Filt Rate - Afr Amer 92 mL/min (>60); Estimated Creatinine Clearance 66.94 ml/min; Glucose 268 mg/dL (74-106); Potassium 3.9 mmol/L (3.5-5.1); Sodium Level 137 mmol/L (136-145); Troponin-I HS 6 pg/mL (3.0-54.0)
--- NOTE | 2021-03-31 16:12 | CT_ITS ---
HISTORY: left flank pain. TECHNIQUE: Helically acquired images were obtained of the abdomen and pelvis without oral or IV contrast as per renal stone protocol. A radiation dose optimization technique was used for this scan. # of images incl. paperwork: [id number]. COMPARISON: 08/04/2017. FINDINGS: LUNG BASES: Clear. BOWEL: Small hiatal hernia. Bowel including appendix nondilated moderate stool in the colon. PERITONEUM: No significant ascites. LIVER/BILIARY TRACT: Unremarkable liver.Gallbladder present. SPLEEN: Non-enlarged. PANCREAS: Severely atrophic or congenitally absent. KIDNEYS AND URETERS: No nephrolithiasis or obstructing ureterolithiasis. Mild distention of the left renal collecting system. ADRENAL GLANDS: Non-enlarged. VESSELS: No abdominal aortic aneurysm. PELVIC ORGANS: Small uterine calcifications. BONES: Bilateral L5 spondylolysis with grade [address]/Abdomen/Pelvis without Cont IMPRESSION: Mild distention of the left renal collecting system without evidence for renal or obstructing ureteral calculus, uncertain etiology. Possible recently passed calculus. Moderate stool in the colon. Leiomyomatous uterus. Individualized dose optimization techniques were used for this CT. at 1650 Reported and signed by: Genevieve Lamb MD Electronically Signed: Genevieve Lamb MD at 16:49 EDT Tel , Service support ,
[2021-03-31] MEDS: Mag Hydrox/Al Hydrox/Simeth 30 ML UDC PO (16:17)
[2021-03-31] MEDS: Morphine 2 MG/ML Syringe IV (16:52)
[2021-03-31 16:54] VITALS: BP 164/97; PULSE 102
[2021-03-31] MEDS: Nitroglycerin SL (ED/IMG/CATH) 0.4 MG TABLET SL (16:54)
[2021-03-31 17:01] VITALS: BP 136/95; PULSE 108; RESP 18; O2SAT 95
[2021-03-31 17:51] VITALS: BP 138/79; PULSE 99; RESP 18; O2SAT 97
== END 2021-03-31 17:52 | disposition home or self-care (01) ==
PROVIDERS: Emergency Provider Emergency Medicine
DX: R07.89 Other chest pain (principal); K59.00 Constipation, unspecified; R10.9 Unspecified abdominal pain; M19.90 Unspecified osteoarthritis, unspecified site; E11.40 Type 2 diabetes mellitus with diabetic neuropathy, unspecified; Z79.4 Long term (current) use of insulin
CPT/HCPCS: 71045; 74176; 80048; 84484; 85025; 85379; 93005; 96374; 99284; A4216

== ENCOUNTER 2021-09-29 19:08 | Emergency (ER) | payer MEDICARE, MEDICAID, SELFPAY ==
[2021-09-29 19:10] VITALS: BP 143/93; PULSE 132; RESP 18; TEMP 35.9; O2SAT 97; BMI 26.6
--- NOTE | 2021-09-29 19:23 | EDS_ITS ---
HPI <MARY Hess - Last Filed: 09/29/21 21:13> History of Present Illness Chief Complaint: Hyperglycemia Narrative Narrative: 56-year-old female with history of hypertension, type 2 diabetes who takes 1000 mg Metformin twice a day as well as long-acting insulin at night. Patient states that she was checking her blood sugar was over 500, she got nervous and is here for evaluation. Patient denies any increased thirst, vision changes, patient denies any recent steroid use. Patient denies any recent fevers chills nausea or vomiting. Patient was concerned and is here for evaluation. [facility] <MARY Hess - Last Filed: 09/29/21 21:13> [facility] Medical History (Updated 09/29/21 @ 21:11 by MARY Hess) Arthritis Back problem Chronic headaches Neuropathy Pancreatitis Seasonal allergies Type 2 diabetes mellitus Home Medications rosuvastatin 40 mg PO DAILY 05/26/16 [History Last Taken 08/02/20] duloxetine 60 mg PO DAILY 05/06/18 [History Last Taken 08/03/20] pregabalin 100 mg capsule 100 mg PO TID #90 cap 01/08/20 [Rx Last Taken 08/03/20] benazepril 5 mg PO DAILY #90 tab 08/05/20 [Rx Last Taken 08/03/20] insulin glargine 43 units SQ QHS #0 08/05/20 [Rx Last Taken 08/02/20] insulin lispro 15 unit SQ TIDCM #1 insuln.pen 08/05/20 [Rx Last Taken Unknown] insulin lispro See Protocol NM ACHS insuln.pen 08/05/20 [Rx Last Taken Unknown] metformin 1,000 mg PO BIDAC #0 08/05/20 [Rx Last Taken 08/03/20] meloxicam 15 mg DAILY 11/03/20 [History Last Taken Unknown] Allergy/AdvReac Type Severity Reaction Status Date / Time empagliflozin Allergy Unknown Unknown Verified 09/29/21 19:09 [From Jardiance] amoxicillin Allergy Itching Verified 09/29/21 19:09 dulaglutide [From Trulicity] Allergy Itching Verified 09/29/21 19:09 Family History Unknown Arthritis Diabetes Myocardial infarction Heart disease Hypertension Osteoporosis Severe allergic reaction Skin cancer Social History Smoking Status: Never smoker alcohol intake: never substance use type: does not use what type of physical activity do you participate in: none ROS <MARY Hess - Last Filed: 09/29/21 21:13> ROS ED ROS Narrative Constitutional: Negative for fever, chills, weight loss or gain, weakness. Presents with a blood sugar over 500 Eyes: Negative for vision loss, vision change, double vision ENT: Negative for any hearing changes, ringing in the ears, dizziness, discharge, pain Nose: Negative for any congestion, runny nose, sinus pain, allergies Throat: Negative for any sore throat hoarseness, voice changes, Cardiovascular: Negative for any chest pain, tightness, palpitations, racing heartbeat Respiratory: Negative for any coughs, sputum production, coughing, hemoptysis, shortness of breath, shortness of breath on exertion, Gastrointestinal: Negative for any abdominal pain, nausea, vomiting, diarrhea, constipation, blood in stool, blood in vomit : Negative for any urinary frequency, incontinence, dysuria, retention, blood in urine Muscle skeletal: Negative for any muscle joint pain, stiffness, myalgias, arthralgias, neck pain, back pain Neurological: Negative for any headache, head injury, dizziness, syncope, numbness or tingling Skin: Negative for any rashes, lumps, itching, abrasions, lacerations Psychiatric: Negative for any depression, anxiety, stress, suicidal ideation, homicidal ideation Hematologic: Negative for any easy bruising, excessive bruising, easy bleeding Allergies: Negative for any eczema, hives, rash EXAM <MARY Hess - Last Filed: 09/29/21 21:13> Physical Exam Const Vital Signs: 09/29/21 19:10 09/29/21 19:19 Temperature 96.6 F L Temperature Source Temporal Pulse Rate 132 H Respiratory Rate 18 Respiratory Effort Normal Respiratory Pattern Normal Blood Pressure 143/93 H Blood Pressure Mean 109 Pulse Ox 97 Oxygen Delivery Method Room Air Positive well nourished, well developed and obese General Appearance ED: well developed Nutritional Appearance: obese Eyes PERRL and EOMs intact bilaterally Neck no lymphadenopathy and supple Chest Wall inspection of chest normal and palpation of chest normal Resp normal respiratory effort and clear to auscultation bilaterally Cardio Rate: tachycardic GI normal to inspection, nondistended, normoactive bowel sounds, non-tender and non-distended Palpation: soft Back/Spine no CVA tenderness Extremity normal to inspection Neuro oriented x3 and CN's II-XII intact bilaterally Sensorium / Orientation: alert Psych mental status grossly normal Skin no rashes or lesions noted <Zack Kirkpatrick MD - Last Filed: 09/29/21 21:15> Physical Exam Const Vital Signs: 09/29/21 19:10 09/29/21 19:19 Temperature 96.6 F L Temperature Source Temporal Pulse Rate 132 H Respiratory Rate 18 Respiratory Effort Normal Respiratory Pattern Normal Blood Pressure 143/93 H Blood Pressure Mean 109 Pulse Ox 97 Oxygen Delivery Method Room Air MDM <MARY Hess - Last Filed: 09/29/21 21:13> [employer] Narrative Medical decision making narrative: Peers well, patient appears nontoxic, vital signs are stable. Patient presents to the emergency department with complaints of elevated blood sugar on her monitor, patient had no signs or symptoms however if this did scare her and she is here for evaluation. Patient physical examination was unremarkable, patient did receive 1 L of normal saline, as well as some routine blood work. Patient CBC was unremarkable, urinalysis was negative for any bacteria, ketones. Patient's anion gap was within normal limits with a blood sugar of 494. After the IV fluids, the patient's blood sugar dropped to 388, patient be given 8 units subcu of Humalog insulin, and will be discharged. Patient given strict instructions to follow her sugars more closely, and to follow-up with her structural iron erector in the next 24 hours. Patient verbally understands the importance of follow-up and instructed to return for any worsening symptoms. Patient's vital signs normalized after IV fluids. Lab Data Attestation: I reviewed the patient's lab results. Labs: Laboratory Results - last 24 hr 09/29/21 09/29/21 09/29/21 19:16 19:30 19:50 WBC 5.1 RBC 4.53 Hgb 13.1 Hct 39.2 MCV 86.5 MCH 28.9 MCHC 33.4 RDW Std Deviation 45.7 H RDW Coeff of Anamaria 14.5 Plt Count 342 MPV 9.6 Immature Gran % (Auto) 0.200 Neut % (Auto) 61.9 Lymph % (Auto) 30.8 [place] % (Auto) 5.9 Eos % (Auto) 0.4 Baso % (Auto) 0.8 Absolute Neuts (auto) 3.1 Absolute Lymphs (auto) 1.56 Nucleated RBC % 0 Sodium Potassium Chloride Carbon Dioxide Anion Gap BUN Creatinine Estim Creat Clear Calc Est GFR (MDRD) Af Amer Est GFR (MDRD) Non-Af BUN/Creatinine Ratio Glucose Calcium Urine Color Yellow Urine Clarity Sl. Cloudy Urine pH 6.0 Ur Specific [place] 1.010 Urine Protein Negative Urine Glucose (UA) 1000 H Urine Ketones Negative Urine Occult Blood Negative Urine Nitrite Negative Urine Bilirubin Negative Urine Urobilinogen Normal Ur Leukocyte Esterase Negative Urine RBC 0 SEEN Urine WBC 0 SEEN Ur Squamous Epith Cells 5-10 SEEN Amorphous Sediment 1+ URATE Urine Bacteria 0 SEEN Urine Mucus 0 SEEN Acetone Level POC Glucose 423 H 09/29/21 09/29/21 09/29/21 19:50 19:50 21:01 WBC RBC Hgb Hct MCV MCH MCHC RDW Std Deviation RDW Coeff of [place] Plt Count MPV Immature Gran % (Auto) Neut % (Auto) Lymph % (Auto) [place] % (Auto) Eos % (Auto) Baso % (Auto) Absolute Neuts (auto) Absolute Lymphs (auto) Nucleated RBC % Sodium 137 Potassium 3.9 Chloride 102 Carbon Dioxide 30.0 Anion Gap 5 BUN 23 H Creatinine 1.06 H Estim Creat Clear Calc 53.33 Est GFR (MDRD) Af Amer 69 Est GFR (MDRD) Non-Af 57 L BUN/Creatinine Ratio 21.7 H Glucose 494 H* Calcium 9.3 Urine Color Urine Clarity Urine pH Ur Specific [place] Urine Protein Urine Glucose (UA) Urine Ketones Urine Occult Blood Urine Nitrite Urine Bilirubin Urine Urobilinogen Ur Leukocyte Esterase Urine RBC Urine WBC Ur Squamous Epith Cells Amorphous Sediment Urine Bacteria Urine Mucus Acetone Level NEGATIVE POC Glucose 388 H <Zack Kirkpatrick MD - Last Filed: 09/29/21 21:15> MDM MDM Narrative Medical decision making narrative: ATTENDING NOTE: Dr. Kirkpatrick: The patient was seen in conjunction with the PA-C/nurse practitioner. I performed a history and physical, and agree with the management of this patient. I agree with noted documentation and plan. I discussed the plan of care and final disposition with the physician associate/nurse practitioner. Elevated blood sugars. History of diabetes. Afebrile. Vital signs noted. Regular rate and rhythm. Lungs clear to auscultation bilaterally. Abdomen soft nontender. Check labs. IV fluids. Subcutaneous insulin. Follow-up with endocrinology. Disposition is discharged. Lab Data Attestation: I reviewed the patient's lab results. Labs: Laboratory Results - last 24 hr 09/29/21 09/29/21 09/29/21 19:16 19:30 19:50 WBC 5.1 RBC 4.53 Hgb 13.1 Hct 39.2 MCV 86.5 MCH 28.9 MCHC 33.4 RDW Std Deviation 45.7 H RDW Coeff of [place] 14.5 Plt Count 342 MPV 9.6 Immature Gran % (Auto) 0.200 Neut % (Auto) 61.9 Lymph % (Auto) 30.8 [place] % (Auto) 5.9 Eos % (Auto) 0.4 Baso % (Auto) 0.8 Absolute Neuts (auto) 3.1 Absolute Lymphs (auto) 1.56 Nucleated RBC % 0 Sodium Potassium Chloride Carbon Dioxide Anion Gap BUN Creatinine Estim Creat Clear Calc Est GFR (MDRD) Af Amer Est GFR (MDRD) Non-Af BUN/Creatinine Ratio Glucose Calcium Urine Color Yellow Urine Clarity Sl. Cloudy Urine pH 6.0 Ur Specific [place] 1.010 Urine Protein Negative Urine Glucose (UA) 1000 H Urine Ketones Negative Urine Occult Blood Negative Urine Nitrite Negative Urine Bilirubin Negative Urine Urobilinogen Normal Ur Leukocyte Esterase Negative Urine RBC 0 SEEN Urine WBC 0 SEEN Ur Squamous Epith Cells 5-10 SEEN Amorphous Sediment 1+ URATE Urine Bacteria 0 SEEN Urine Mucus 0 SEEN Acetone Level POC Glucose 423 H 09/29/21 09/29/21 09/29/21 19:50 19:50 21:01 WBC RBC Hgb Hct MCV MCH MCHC RDW Std Deviation RDW Coeff of [place]aria Plt Count MPV Immature Gran % (Auto) Neut % (Auto) Lymph % (Auto) [place] % (Auto) Eos % (Auto) Baso % (Auto) Absolute Neuts (auto) Absolute Lymphs (auto) Nucleated RBC % Sodium 137 Potassium 3.9 Chloride 102 Carbon Dioxide 30.0 Anion Gap 5 BUN 23 H Creatinine 1.06 H Estim Creat Clear Calc 53.33 Est GFR (MDRD) Af Amer 69 Est GFR (MDRD) Non-Af 57 L BUN/Creatinine Ratio 21.7 H Glucose 494 H* Calcium 9.3 Urine Color Urine Clarity Urine pH Ur Specific [place] Urine Protein Urine Glucose (UA) Urine Ketones Urine Occult Blood Urine Nitrite Urine Bilirubin Urine Urobilinogen Ur Leukocyte Esterase Urine RBC Urine WBC Ur Squamous Epith Cells Amorphous Sediment Urine Bacteria Urine Mucus Acetone Level NEGATIVE POC Glucose 388 H Discharge Plan Triage Chief Complaint: Hyperglycemia ED Midlevel Provider: Tyler Freitas ED Provider: Zack Kirkpatrick Dx/Rx/DC Orders Clinical Impression: Type 2 diabetes mellitus, Acute hyperglycemia Instructions: Diabetes: Caring for Your Body, ED Diabetic Hyperglycemia Prescriptions: No Action rosuvastatin 40 MG tablet 40 mg PO DAILY RF: 0 duloxetine 60 MG capsule,delayed release(DR/EC) 60 mg PO DAILY RF: 0 insulin lispro 100 UNIT/ML insulin pen See Protocol unit SC ACHS RF: 0 metformin 500 MG tablet 1,000 mg PO BIDAC Qty: 0 RF: 0 benazepril 10 mg tablet 5 mg PO DAILY Qty: 90 RF: 1 insulin glargine 100 UNITS/ML insulin pen 43 units SQ QHS Qty: 0 RF: 0 insulin lispro 100 UNIT/ML insulin pen 15 unit SQ TIDCM Qty: 1 RF: 2 meloxicam 15 MG tablet 15 mg DAILY RF: 0 pregabalin 100 mg capsule 100 mg PO TID Qty: 90 RF: 0 Primary Care Provider: Care Physician,No Primary Referrals: Care Physician,No Primary [Primary Care Provider] - Activity Restrictions/Additional Instructions: Please follow-up with your established structural iron erector in [place]. Please check your sugars more frequently, please check your sugars tonight before you go to bed. Print Language: Japanese Disposition Disposition: Home, Self Care
[2021-09-29 19:26] LABS: Bedside Glucose 423 mg/dL (74-106)
[2021-09-29 19:40] LABS: Bacteria 0 SEEN /hpf (None Seen); Mucous, Urine 0 SEEN /hpf (<or=2+); Red Blood Cells-Urine 0 SEEN /hpf (0-5); White Blood Cells 0 SEEN /hpf (0-5)
[2021-09-29 19:41] LABS: Color, Urine Yellow (Yellow); Glucose, Dipstick 1000 mg/dl (Normal); Ketone-Dipstick Negative (Negative); Leukocyte Esterase-Dipstick Negative /ul (Negative); Nitrite-Dipstick Negative (Negative); Occult Blood-Urine Negative /ul (Negative); Protein-Dipstick Negative (Negative); Urine Bilirubin Dipstick Negative (Negative); Urine Clarity Sl. Cloudy (Clear); Urine Urobilinogen Normal (Normal)
[2021-09-29 19:48] LABS: Amorphous Sediment 1+ URATE; Squamous Epithelial Cells - UA 5-10 SEEN /hpf (5-10)
[2021-09-29] MEDS: 0.9% Normal Saline 1,000 ML 1000 ML IV (19:54)
[2021-09-29 20:03] LABS: Absolute Lymphocyte Count 1.56 X10^3/uL (0.83-4.51); Absolute Neutrophil Count 3.1 X10^3/uL (2.0-7.7); Basophil# 0.04 X10^3/uL; Basophil% 0.8 % (0-1); Eosinophil# 0.02 X10^3/uL; Eosinophils% 0.4 % (0-5); Hematocrit 39.2 % (37-47); Hemoglobin 13.1 g/dL (12.0-15.0); Lymphocyte # 1.56 X10^3/ul (0.83-4.51); Lymphocyte % 30.8 % (19-41); Mean Corp Hgb Conc 33.4 g/dL (32-36); Mean Corpuscular Hgb 28.9 pg (27.0-32.0); Mean Corpuscular Volume 86.5 fL (81-99); Mean Platelet Vol. 9.6 fl (6.2-12.0); Monocyte% 5.9 % (0-10); NRBC Flagged by Analyzer 0 % (0-5); Neutrophil # 3.13 X10^3/uL (2.7-7.7); Neutrophil % 61.9 % (47-70); Platelet Count 342 K/mm3 (150-450); RBC Distribution Width CV 14.5 % (11.6-14.6); RBC Distribution Width SD 45.7 fl (35.1-43.9); Red Blood Count 4.53 M/mm3 (4.2-5.4); White Blood Count 5.1 K/mm3 (4.4-11.0)
[2021-09-29 20:38] LABS: Anion Gap 5 (5-15); BUN 23 mg/dL (7-18); BUN/Creat Ratio 21.7 RATIO (10-20); Calcium,Total 9.3 mg/dL (8.5-10.1); Chloride 102 mmol/L (98-107); Creatinine, Serum 1.06 mg/dL (0.55-1.02); EST Glomerular Filtration Rate 57 mL/min (>60); Est Glom Filt Rate - Afr Amer 69 mL/min (>60); Estimated Creatinine Clearance 53.33 ml/min; Glucose 494 mg/dL (74-106); Potassium 3.9 mmol/L (3.5-5.1); Sodium Level 137 mmol/L (136-145)
[2021-09-29 21:06] LABS: Bedside Glucose 388 mg/dL (74-106)
--- NOTE | 2021-09-29 21:38 | ED.RN ---
8 units sc humalog given in the abd prior to d/c. PA stuck in chart and not here at present time. rosaline copeland rn [id number]
[2021-09-29 21:40] VITALS: BP 140/87; PULSE 109; RESP 16; O2SAT 98
--- NOTE | 2021-10-05 16:50 | CM.ED ---
ER RNCM DC F/u Call: Seen in ER 09.29.21 for Hyperglycemia. On Metformin and Insulin with BS>500. Called patient's listed cell number, fwd to VM. VM did not identify correct patient and therefore no VM was left. Prem Warner RNCM
== END 2021-09-29 21:41 | disposition home or self-care (01) ==
PROVIDERS: Nurse Practitioner; Emergency Provider Emergency Medicine; Visit Provider Emergency Medicine
DX: E11.65 Type 2 diabetes mellitus with hyperglycemia (principal); Z79.84 Long term (current) use of oral hypoglycemic drugs; E66.9 Obesity, unspecified
CPT/HCPCS: 80048; 81001; 82009; 82962; 85025; 96360; 96361; 99283; J7030; A4216

== ENCOUNTER 2021-10-13 19:33 | Emergency (ER) | payer MEDICARE, MEDICAID, SELFPAY ==
[2021-10-13 19:34] VITALS: BP 153/93; PULSE 103; RESP 18; TEMP 36.2; O2SAT 97
--- NOTE | 2021-10-13 19:50 | EKG12_ITS ---
Test Reason : ABD PAIN Blood Pressure : / mmHG Vent. Rate : 095 BPM Atrial Rate : 095 BPM P-R Int : 140 ms QRS Dur : 080 ms QT Int : 342 ms P-R-T Axes : 059 036 065 degrees QTc Int : 429 ms Normal sinus rhythm Normal ECG Confirmed by VIRIDIANA REY, ALBERTO ([id number]), senior editor CANELO CORTEZ ([id number]) on 10/19/2021 11:02:32 AM Referred By: Confirmed By:ALBERTO KEMP MD
--- NOTE | 2021-10-13 20:05 | RAD_ITS ---
STUDY: X-RAY CHEST REASON FOR EXAM: Female, 56 years old. chest pain TECHNIQUE: AP portable. 8:01 PM. COMPARISON: 03/31/2021. FINDINGS: LUNGS: No consolidation. No pneumothorax. MEDIASTINUM: Unremarkable. CARDIAC [place]ETTE: Not enlarged. BONES AND SOFT TISSUES: No acute abnormalities. RAD/Chest 1 View (Portable) IMPRESSION: Negative portable chest x-ray. Electronically Signed: Veronica Magallanes MD at 20:29 EDT ,
[2021-10-13 20:06] LABS: Absolute Lymphocyte Count 1.62 X10^3/uL (0.83-4.51); Absolute Neutrophil Count 3.1 X10^3/uL (2.0-7.7); Basophil# 0.05 X10^3/uL; Eosinophil# 0.06 X10^3/uL; Eosinophils% 1.2 % (0-5); Hematocrit 38.2 % (37-47); Hemoglobin 12.4 g/dL (12.0-15.0); Lymphocyte # 1.62 X10^3/ul (0.83-4.51); Lymphocyte % 31.2 % (19-41); Mean Corp Hgb Conc 32.5 g/dL (32-36); Mean Corpuscular Hgb 28.1 pg (27.0-32.0); Mean Corpuscular Volume 86.6 fL (81-99); Mean Platelet Vol. 9.9 fl (6.2-12.0); Monocyte# 0.36 X10^3/uL; Monocyte% 6.9 % (0-10); NRBC Flagged by Analyzer 0 % (0-5); Neutrophil # 3.09 X10^3/uL (2.7-7.7); Neutrophil % 59.5 % (47-70); Platelet Count 312 K/mm3 (150-450); RBC Distribution Width CV 14.6 % (11.6-14.6); RBC Distribution Width SD 47.2 fl (35.1-43.9); Red Blood Count 4.41 M/mm3 (4.2-5.4); White Blood Count 5.2 K/mm3 (4.4-11.0)
[2021-10-13 20:25] LABS: Anion Gap 6 (5-15); BUN 21 mg/dL (7-18); BUN/Creat Ratio 21.1 RATIO (10-20); Calcium,Total 9.2 mg/dL (8.5-10.1); Chloride 107 mmol/L (98-107); Creatinine, Serum 0.99 mg/dL (0.55-1.02); EST Glomerular Filtration Rate 61 mL/min (>60); Est Glom Filt Rate - Afr Amer 74 mL/min (>60); Estimated Creatinine Clearance 54.79 ml/min; Glucose 309 mg/dL (74-106); Potassium 3.9 mmol/L (3.5-5.1); Sodium Level 138 mmol/L (136-145); Troponin-I HS (w/2H Reflex) < 3 pg/mL (3.0-54.0)
--- NOTE | 2021-10-13 20:48 | EDS_ITS ---
HPI History of Present Illness Chief Complaint: Chest Other Detail of Chief Complaint: Bilateral anterior chest pain x4 days Onset/Context/Timing Onset: Days Activity at onset: sudden Timing: Continuous Quality: Positive for Aching Location: Right Parasternal and Left Parasternal Current Severity: Mild Maximum Severity: Moderate Worsened By: Nothing Relieved By: Nothing Associated Symptoms: Negative for Nausea, Vomiting, Diaphoresis, Dyspnea, Cough, Fever, Lightheadedness, Acid Reflux and Palpitations Narrative Narrative: Patient is a 56-year-old woman with history of diabetes, hiatal hernia, anxiety disorder and chest pain in the past with no determine etiology. Mother states she gave her a pain pill muscle relaxant with no improvement in r christina why she was brought to the emergency department. She denies fever, chills or night sweats. She denies weight loss or weight gain. She denies ocular, visual or auditory symptoms. She denies rhinorrhea, congestion or postnasal drainage. She denies sore throat. She denies change in voice. She denies cough or shortness of breath. She denies pleuritic pain. There is no history of VTE. She denies leg pain, swelling discoloration. There is no history of hiatal hernia or peptic ulcers. She denies black or maroon-colored stool. There are no alleviating, precipitating or exacerbating factors. Prior Similar Symptoms: Yes, With Prior IA, With Prior Angina, With Prior PE and - (Unknown cause) Recent Illness/Hospitalization: No CVD Risk Factors: Positive for Hypertension and Diabetes; Negative for Family History 1' </=55 and Smoking PE Risk Factors: Negative for Recent Travel/Surgery, Recent Immobilization, Prior DVT or PE, Cancer and OCP + Smoking + >/=35 TAD Risk Factors: Positive for Hypertension; Negative for Marfan's Syndrome and Family History [facility] Medical History (Updated 10/13/21 @ 20:[address] Fernando Lora MD) Arthritis Back problem Chronic headaches Neuropathy Pancreatitis Seasonal allergies Type 2 diabetes mellitus Home Medications rosuvastatin 40 mg PO DAILY 05/26/16 [History Last Taken 08/02/20] duloxetine 60 mg PO DAILY 05/06/18 [History Last Taken 08/03/20] pregabalin 100 mg capsule 100 mg PO TID #90 cap 01/08/20 [Rx Last Taken 08/03/20] benazepril 5 mg PO DAILY #90 tab 08/05/20 [Rx Last Taken 08/03/20] insulin glargine 43 units SQ QHS #0 08/05/20 [Rx Last Taken 08/02/20] insulin lispro 15 unit SQ TIDCM #1 insuln.pen 08/05/20 [Rx Last Taken Unknown] insulin lispro See Protocol SC ACHS insuln.pen 08/05/20 [Rx Last Taken Unknown] metformin 1,000 mg PO BIDAC #0 08/05/20 [Rx Last Taken 08/03/20] meloxicam 15 mg DAILY 11/03/20 [History Last Taken Unknown] Allergy/AdvReac Type Severity Reaction Status Date / Time empagliflozin Allergy Unknown Unknown Verified 10/13/21 19:36 [From Jardiance] amoxicillin Allergy Itching Verified 10/13/21 19:36 dulaglutide [From Trulicity] Allergy Itching Verified 10/13/21 19:36 Family History Unknown Arthritis Diabetes Myocardial infarction Heart disease Hypertension Osteoporosis Severe allergic reaction Skin cancer Social History (Updated 10/13/21 @ 20:[address] Fernando Lora MD) household members: family Smoking Status: Never smoker alcohol intake: never substance use type: does not use what type of physical activity do you participate in: none ROS ROS ED Constitutional Constitutional ED: Denies chills, fever(s), subjective, sweats or weight loss Eyes Eyes: Reports none ENT ENT ED: Denies ear pain, rhinorrhea or sore throat Cardiovascular Cardiovascular: Reports as per HPI; Denies orthopnea or paroxysmal nocturnal dyspnea Respiratory/Chest Respiratory/Chest: Denies cough, dyspnea, dyspnea on exertion, orthopnea or paroxysmal nocturnal dyspnea Gastrointestinal Gastrointestinal: Denies abdominal pain, diarrhea, melena, nausea or vomiting Genitourinary Genitourinary ED: Denies dysuria, hematuria or urinary frequency Musculoskeletal Musculoskeletal: Denies arthralgias, back pain, myalgias or neck pain Integumentary Denies rash Neurologic Neurologic: Denies headache(s), paresthesias or weakness Endocrine Endocrinology: Denies polydipsia, polyphagia or polyuria Hematologic/Lymphatic Hematologic/Lymphatic: Denies easy bleeding or easy bruising EXAM Physical Exam Const Vital Signs: 10/13/21 19:34 Temperature 97.2 F L Temperature Source Temporal Pulse Rate 103 H Respiratory Rate 18 Blood Pressure 153/93 H Blood Pressure Mean 113 Pulse Ox 97 Oxygen Delivery Method Room Air Positive well nourished, well developed and obese General Appearance ED: well developed and NAD; Negative for pallor Nutritional Appearance: obese HEENT Reports TM's clear and moist mucous membranes HEENT Narrative: Ears are normal. Nares patent. Uvula midline. There is no angioedema. normocephalic and atraumatic Tympanic Membrane ED: Yes TM's clear Eyes PERRL and EOMs intact bilaterally General Eye ED: Negative for pale conjunctiva or scleral icterus Neck no lymphadenopathy, supple and no JVD Chest Wall inspection of chest normal and palpation of chest normal Chest Narrative: Patient complains of pain to palpation. Chest: tenderness Resp normal respiratory effort and clear to auscultation bilaterally Effort and Inspection: respiratory distress Cardio regular rate, regular rhythm, S1 normal heart sound, S2 normal heart sound and no murmurs GI normal to inspection, nondistended, normoactive bowel sounds and soft to palpation Back/Spine no CVA tenderness and no thoracic nor lumbar tenderness Extremity normal to inspection General Extremety ED: Negative for edema, pulses abnormal or tenderness General Extremity: Negative for edema or pulses abnormal Neuro oriented x3 and CN's II-XII intact bilaterally Sensorium / Orientation: awake and alert Psych mental status grossly normal Skin no rashes or lesions noted and no wounds General Skin Exam: Negative for jaundice or pallor MDM MDM Lab Data Attestation: I reviewed the patient's lab results. Lab results narrative: CBC and troponin are normal. Since troponin is less than 3 - predictive value for cardiac disease is 100%. Blood sugar is greater than 300. She will be discharged home Labs: Laboratory Results - last 24 hr 10/13/21 10/13/21 20:00 20:00 WBC 5.2 RBC 4.41 Hgb 12.4 Hct 38.2 MCV 86.6 MCH 28.1 MCHC 32.5 RDW Std Deviation 47.2 H RDW Coeff of Anamaria 14.6 Plt Count 312 MPV 9.9 Immature Gran % (Auto) 0.200 Neut % (Auto) 59.5 Lymph % (Auto) 31.2 [place] % (Auto) 6.9 Eos % (Auto) 1.2 Baso % (Auto) 1.0 Absolute Neuts (auto) 3.1 Absolute Lymphs (auto) 1.62 Nucleated RBC % 0 Sodium 138 Potassium 3.9 Chloride 107 Carbon Dioxide 25.0 Anion Gap 6 BUN 21 H Creatinine 0.99 Estim Creat Clear Calc 54.79 Est GFR (MDRD) Af Amer 74 Est GFR (MDRD) Non-Af 61 BUN/Creatinine Ratio 21.1 H Glucose 309 H Calcium 9.2 Troponin I High Sens < 3 L Radiography Chest X-Ray - ED: 1 View and Read by ED Physician (Single view portable chest x- ray was in dependently interpreted by me at 2017. The cardiac silhouette and size are unremarkable. Perihilar regions unremarkable. [place] structures are unremarkable.) Diagnostic Testing: Clinical Impression(s) from Imaging Studies Chest X-Ray 10/13/21 20:05 IMPRESSION: Negative portable chest x-ray. Electronically Signed: Veronica Magallanes MD at 20:29 EDT Reading Location ID and State: [facility] / [place] Tel , Service support , Discharge Plan Triage Chief Complaint: Chest Other ED Provider: Fernando Lora Dx/Rx/DC Orders Clinical Impression: Non-cardiac chest pain, Hyperglycemia due to type 2 diabetes mellitus, Neuropathy due to type 2 diabetes mellitus Instructions: ED Chest Pain, Noncardiac, ED Diabetic Hyperglycemia Prescriptions: No Action rosuvastatin 40 MG tablet 40 mg PO DAILY RF: 0 duloxetine 60 MG capsule,delayed release(DR/EC) 60 mg PO DAILY RF: 0 insulin lispro 100 UNIT/ML insulin pen See Protocol unit SC ACHS RF: 0 metformin 500 MG tablet 1,000 mg PO BIDAC Qty: 0 RF: 0 benazepril 10 mg tablet 5 mg PO DAILY Qty: 90 RF: 1 insulin glargine 100 UNITS/ML insulin pen 43 units SQ QHS Qty: 0 RF: 0 insulin lispro 100 UNIT/ML insulin pen 15 unit SQ TIDCM Qty: 1 RF: 2 meloxicam 15 MG tablet 15 mg DAILY RF: 0 pregabalin 100 mg capsule 100 mg PO TID Qty: 90 RF: 0 Primary Care Provider: Wilbur Meadows Referrals: Wilbur Meadows DO [Primary Care Provider] - 3-5 Days Disposition Disposition: Home, Self Care
[2021-10-13] MEDS: Insulin Lispro 100 UNIT/ML INSULN.PEN 8 UNIT SC (21:11)
[2021-10-13 21:16] VITALS: PULSE 78; RESP 17; O2SAT 98
[2021-10-13 22:03] LABS: Reflex Troponin-HS? (from REC) Y
== END 2021-10-13 21:26 | disposition home or self-care (01) ==
PROVIDERS: Emergency Provider Emergency Medicine; PCP Student in an Organized Health Care Education/Training Program; Visit Provider Emergency Medicine
DX: R07.89 Other chest pain (principal); E11.65 Type 2 diabetes mellitus with hyperglycemia; E11.40 Type 2 diabetes mellitus with diabetic neuropathy, unspecified; Z79.4 Long term (current) use of insulin; F41.9 Anxiety disorder, unspecified; I10 Essential (primary) hypertension; Z79.899 Other long term (current) drug therapy; M19.90 Unspecified osteoarthritis, unspecified site
CPT/HCPCS: 71045; 80048; 84484; 85025; 93005; 99283; A4216

== ENCOUNTER 2022-03-05 15:49 | Emergency (ER) | payer MEDICARE, SELFPAY ==
[2022-03-05 15:52] VITALS: BP 141/94; PULSE 110; RESP 20; TEMP 36; O2SAT 97; BMI 31.8
--- NOTE | 2022-03-05 16:24 | EDS_ITS ---
HPI History of Present Illness Chief Complaint: Numb/Ting Narrative Narrative: 56-year-old female past medical history of diabetes for which she takes metformin and insulin presents with numbness and tingling of her left forearm into her left hand. She is right-hand dominant. She states symptoms began this morning when she awoke. Yesterday everything was fine. She denies any headache. No chest pain. No shortness of breath. No exacerbating or alleviating factors although she was told that she has carpal tunnel syndrome by a doctor in [place]. Additionally, she states she has bilateral lower extremity diabetic neuropathy in her legs, and used to take gabapentin but they took it away from me. She does not see a primary care physician regularly. 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 She denies any nausea or vomiting. No sweating/diaphoresis. [facility] Medical History (Updated 03/05/22 @ 18:39 by Zack Kirkpatrick MD) Arthritis Back problem Chronic headaches Neuropathy Pancreatitis Seasonal allergies Type 2 diabetes mellitus Home Medications rosuvastatin 40 mg tablet 40 mg PO DAILY 05/26/16 [History Last Taken 08/02/20] duloxetine 60 mg capsule,delayed release 60 mg PO DAILY 05/06/18 [History Last Taken 08/03/20] pregabalin 100 mg capsule 100 mg PO TID #90 caps 01/08/20 [Rx Last Taken 08/03/20] benazepril 10 mg tablet 5 mg PO DAILY #90 tabs 08/05/20 [Rx Last Taken 08/03/20] insulin glargine 100 unit/mL (3 mL) subcutaneous pen 43 units (0.43 mL) SQ QHS DM ##0 08/05/20 [Rx Last Taken 08/02/20] insulin lispro 100 unit/mL subcutaneous pen 15 unit (0.15 mL) SQ TIDCM ##1 08/05/20 [Rx Last Taken Unknown] insulin lispro 100 unit/mL subcutaneous pen See Protocol subcut ACHS 08/05/20 [Rx Last Taken Unknown] metformin 500 mg tablet 1,000 mg PO BIDAC DM ##0 08/05/20 [Rx Last Taken 08/03/20] meloxicam 15 mg DAILY 11/03/20 [History Last Taken Unknown] Allergy/AdvReac Type Severity Reaction Status Date / Time empagliflozin Allergy Unknown Unknown Verified 03/05/22 15:50 [From Jardiance] amoxicillin Allergy Itching Verified 03/05/22 15:50 dulaglutide [From Trulicity] Allergy Itching Verified 03/05/22 15:50 Family History Unknown Arthritis Diabetes Myocardial infarction Heart disease Hypertension Osteoporosis Severe allergic reaction Skin cancer Social History household members: family Smoking Status: Never smoker alcohol intake: never substance use type: does not use what type of physical activity do you participate in: none ROS ROS ED ROS Narrative Insert constitutional: No fever, no chills. HEENT: No sore throat. No neck pain. No loss of vision. No rhinorrhea. Cardiovascular: No chest pain. No palpitations. No pedal edema. Respiratory: No cough, no shortness of breath. Abdominal: No abdominal pain. No nausea. No vomiting. Genitourinary: No dysuria. No hematuria. Musculoskeletal: No myalgias. No arthralgias. Neurologic: No headaches. No dizziness. No lightheadedness. Positive pain and paresthesia of left forearm into hand. Skin: No rash. No change in color. Psychiatric: No depression. No anxiety. EXAM Physical Exam Narrative Exam Narrative: Afebrile. Vital signs noted. HEENT: Normocephalic. Atraumatic. PERRL, EOMI. Neck soft and supple. No point tenderness or step off. Cardiovascular: Regular rate and rhythm. No murmurs, rubs, or gallops appreciated. Respiratory: No tachypnea. Lungs clear to auscultation bilaterally. Gastrointestinal: Abdomen soft, nontender, with normoactive bowel sounds. No rebound or guarding. Neurological: Awake. Alert. Nonfocal, nonlateralizing. Skin: No rash. Normal color. No pallor. Musculoskeletal: No pedal edema. Full range of motion extremities. Palpable radial pulse on left. No evidence of erythema or fluctuance. Positive reproduction of neuropathic pain with percussion of elbow. Const Vital Signs: 03/05/22 15:52 03/05/22 18:01 Temperature 96.8 F L Temperature Source Temporal Pulse Rate 110 H 74 Respiratory Rate 20 H 17 Blood Pressure 141/94 H Blood Pressure Mean 109 Pulse Ox 97 98 Oxygen Delivery Method Room Air Room Air MDM MDM MDM Narrative Medical decision making narrative: I do feel that the patient probably has more of a diabetic neuropathy. We will check her electrolytes and her magnesium. She was given 1 dose of gabapentin. Her electrolyte panel is grossly unremarkable except for BUN of 22 with a normal creatinine of 0.71. Magnesium is normal. EKG interpreted by myself demonstrates normal sinus rhythm at 95 bpm without ectopy or acute ST changes. No STEMI. I do not think that this is cardiac chest pain. I also do not feel that this is a stroke. I do not feel CT imaging of the brain is indicated. After the gabapentin, she states she feels mildly improved. I reviewed her prescription monitoring report. She takes pregabalin. While she states she did not have a primary care physician, she states now that she does have 1. She will continue her pregabalin as previously directed and follow-up with her primary care physician. I feel she can be discharged safely home with follow- up. Return instructions were reviewed. Disposition is discharged home in stable condition. Lab Data Attestation: I reviewed the patient's lab results. Labs: Laboratory Results - last 24 hr 03/05/22 17:00 Sodium 140 Potassium 3.8 Chloride 106 Carbon Dioxide 26.0 Anion Gap 8 BUN 22 H Creatinine 0.71 Estim Creat Clear Calc 76.40 Est GFR (MDRD) Af Amer 109 Est GFR (MDRD) Non-Af 90 BUN/Creatinine Ratio 30.9 H Glucose 168 H Calcium 9.4 Magnesium 1.7 Discharge Plan Triage Chief Complaint: Numb/Ting ED Provider: Zack Kirkpatrikc Dx/Rx/DC Orders Clinical Impression: Diabetic neuropathy, Left forearm pain, Paresthesia and pain of left extremity Instructions: ED Myalgias, ED Neuropathy, Peripheral, ED Paraesthesias Prescriptions: No Action rosuvastatin 40 MG tablet 40 mg PO DAILY duloxetine 60 MG capsule,delayed release(DR/EC) 60 mg PO DAILY Label Comments: TAKE ONE CAPSULE BY MOUTH ONCE A DAY DIRECTED insulin lispro 100 UNIT/ML insulin pen See Protocol SC ACHS 0RF Protocol: 3. Sliding Scale Insulin Med Dosing Condition: 150-189 mg/dl = 1 unit Condition: 190-229 mg/dl = 2 units Condition: 230-269 mg/dl = 3 units Condition: 270-309 mg/dl = 4 units Condition: 310-349 mg/dl = 5 units Condition: 350-399 mg/dl = 6 units Condition: 400-449 mg/dl = 7 units Condition: Greater than 449 call physician Protocol Text: - Use for Total Daily Dose of Insulin 37-55 units - Obsese, infected, or steroid patients MEDIUM DOSING ALGORITHIM metformin 500 MG tablet 1,000 mg PO BIDAC Qty: 0 0RF Rx Instructions: Hold for 5 days benazepril 10 mg tablet 5 mg PO DAILY Qty: 90 1RF insulin glargine 100 UNITS/ML insulin pen 43 units SQ QHS Qty: 0 0RF insulin lispro 100 UNIT/ML insulin pen 15 unit SQ TIDCM Qty: 1 2RF Rx Instructions: Hold if glucose less than 130 mg/dl meloxicam 15 MG tablet 15 mg DAILY pregabalin 100 mg capsule 100 mg PO TID Qty: 90 0RF Primary Care Provider: Rod Chew Referrals: Rod Chew DO [Primary Care Provider] - 3-5 Days Disposition Disposition: Home, Self Care
--- NOTE | 2022-03-05 16:27 | EKG12_ITS ---
Test Reason : Blood Pressure : / mmHG Vent. Rate : 095 BPM Atrial Rate : 095 BPM P-R Int : 146 ms QRS Dur : 078 ms QT Int : 348 ms P-R-T Axes : 041 010 049 degrees QTc Int : 437 ms Normal sinus rhythm Normal ECG Confirmed by VIRIDIANA REY, ALBERTO ([id number]), acquisition editor SWETA OCASIO ([id number]) on 03/07/2022 7:34:09 AM Referred By: NISHA Confirmed By:ALBERTO KEMP MD
[2022-03-05] MEDS: Gabapentin 100 MG Capsule PO (16:51)
[2022-03-05 17:48] LABS: Anion Gap 8 (5-15); BUN 22 mg/dL (7-18); BUN/Creat Ratio 30.9 RATIO (10-20); Calcium,Total 9.4 mg/dL (8.5-10.1); Chloride 106 mmol/L (98-107); Creatinine, Serum 0.71 mg/dL (0.55-1.02); EST Glomerular Filtration Rate 90 mL/min (>60); Est Glom Filt Rate - Afr Amer 109 mL/min (>60); Glucose 168 mg/dL (74-106); Magnesium 1.7 mg/dL (1.6-2.6); Potassium 3.8 mmol/L (3.5-5.1); Sodium Level 140 mmol/L (136-145)
[2022-03-05 18:01] VITALS: PULSE 74; RESP 17; O2SAT 98
[2022-03-05 18:45] VITALS: BP 137/88; PULSE 82; RESP 18; O2SAT 97
== END 2022-03-05 18:53 | disposition home or self-care (01) ==
PROVIDERS: Emergency Provider Emergency Medicine; PCP Student in an Organized Health Care Education/Training Program; Visit Provider Emergency Medicine
DX: E11.40 Type 2 diabetes mellitus with diabetic neuropathy, unspecified (principal); Z79.4 Long term (current) use of insulin; R20.2 Paresthesia of skin; M79.632 Pain in left forearm; G56.00 Carpal tunnel syndrome, unspecified upper limb; R20.0 Anesthesia of skin; M19.90 Unspecified osteoarthritis, unspecified site; Z79.899 Other long term (current) drug therapy; Z79.84 Long term (current) use of oral hypoglycemic drugs
CPT/HCPCS: 80048; 83735; 93005; 99282

== ENCOUNTER 2022-03-20 19:29 | Emergency (ER) | payer MEDICARE, SELFPAY ==
[2022-03-20 19:30] VITALS: BP 155/74; PULSE 113; RESP 14; TEMP 36.2; O2SAT 98; BMI 31.6
[2022-03-20 20:24] VITALS: BP 147/90; PULSE 109; RESP 16; O2SAT 97
--- NOTE | 2022-03-20 20:52 | EKG12_ITS ---
Test Reason : DYSRHYTHMIA Blood Pressure : / mmHG Vent. Rate : 118 BPM Atrial Rate : 118 BPM P-R Int : 146 ms QRS Dur : 078 ms QT Int : 322 ms P-R-T Axes : 049 024 076 degrees QTc Int : 451 ms Sinus tachycardia Otherwise normal ECG Confirmed by VIRIDIANA REY, ALBERTO ([id number]), website/blog editor SWETA OCASIO ([id number]) on 03/21/2022 9:24:26 AM Referred By: TL Confirmed By:ALBERTO KEMP MD
[2022-03-20 21:01] LABS: Absolute Lymphocyte Count 1.78 X10^3/uL (0.83-4.51); Absolute Neutrophil Count 4.3 X10^3/uL (2.0-7.7); Basophil# 0.07 X10^3/uL; Basophil% 1.1 % (0-1); Eosinophil# 0.07 X10^3/uL; Eosinophils% 1.1 % (0-5); Hematocrit 38.5 % (37-47); Hemoglobin 12.1 g/dL (12.0-15.0); Lymphocyte # 1.78 X10^3/ul (0.83-4.51); Lymphocyte % 27.1 % (19-41); Mean Corp Hgb Conc 31.4 g/dL (32-36); Mean Corpuscular Hgb 27.9 pg (27.0-32.0); Mean Corpuscular Volume 88.7 fL (81-99); Mean Platelet Vol. 10.3 fl (6.2-12.0); Monocyte# 0.38 X10^3/uL; Monocyte% 5.8 % (0-10); NRBC Flagged by Analyzer 0 % (0-5); Neutrophil # 4.26 X10^3/uL (2.7-7.7); Neutrophil % 64.6 % (47-70); Platelet Count 330 K/mm3 (150-450); RBC Distribution Width CV 14.7 % (11.6-14.6); RBC Distribution Width SD 47.8 fl (35.1-43.9); Red Blood Count 4.34 M/mm3 (4.2-5.4); White Blood Count 6.6 K/mm3 (4.4-11.0)
--- NOTE | 2022-03-20 21:01 | EDS_ITS ---
HPI History of Present Illness Chief Complaint: Palpitations Narrative Narrative: 56-year-old female presenting with palpitations. She states her chest feels like she has sharp pain in the center of it. She states it hurts worse when she takes a deep breath. She states the pain all began when she was eating some steak and onions earlier. She states she broke out into a sweat after eating it. She denies history of cardiac disease. No history of DVT/PE and no risk factors. No shortness of breath. No fever, chills, cough. Patient does have a history of diabetes. She takes metformin and a long-acting insulin she does not know the name of. She states her blood sugars range from 100-300. 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 She just saw him recently. [facility] Medical History Arthritis Back problem Chronic headaches Neuropathy Pancreatitis Seasonal allergies Type 2 diabetes mellitus Home Medications rosuvastatin 40 mg tablet 40 mg PO DAILY 05/26/16 [History Last Taken 08/02/20] duloxetine 60 mg capsule,delayed release 60 mg PO DAILY 05/06/18 [History Last Taken 08/03/20] pregabalin 100 mg capsule 100 mg PO TID #90 caps 01/08/20 [Rx Last Taken 08/03/20] benazepril 10 mg tablet 5 mg PO DAILY #90 tabs 08/05/20 [Rx Last Taken 08/03/20] insulin glargine 100 unit/mL (3 mL) subcutaneous pen 43 units (0.43 mL) SQ QHS DM ##0 08/05/20 [Rx Last Taken 08/02/20] insulin lispro 100 unit/mL subcutaneous pen 15 unit (0.15 mL) SQ TIDCM ##1 08/05/20 [Rx Last Taken Unknown] insulin lispro 100 unit/mL subcutaneous pen See Protocol subcut ACHS 08/05/20 [Rx Last Taken Unknown] metformin 500 mg tablet 1,000 mg PO BIDAC DM ##0 08/05/20 [Rx Last Taken 08/03] meloxicam 15 mg DAILY 11/03/20 [History Last Taken Unknown] Allergy/AdvReac Type Severity Reaction Status Date / Time empagliflozin Allergy Unknown Unknown Verified 03/20/22 19:30 [From Jardiance] amoxicillin Allergy Itching Verified 03/20/22 19:30 dulaglutide [From Trulicity] Allergy Itching Verified 03/20/22 19:30 Family History Unknown Arthritis Diabetes Myocardial infarction Heart disease Hypertension Osteoporosis Severe allergic reaction Skin cancer Social History household members: family Smoking Status: Never smoker alcohol intake: never substance use type: does not use what type of physical activity do you participate in: none ROS ROS ED Constitutional Constitutional ED: Reports sweats; Denies chills or fever(s) Eyes Eyes: Denies change in vision or diplopia ENT ENT ED: Denies rhinorrhea or sore throat Cardiovascular Cardiovascular: Reports chest pain and palpitations Respiratory/Chest Respiratory/Chest: Denies cough or dyspnea Gastrointestinal Gastrointestinal: Denies abdominal pain or constipation Genitourinary Genitourinary ED: Denies dysuria or hematuria Musculoskeletal Musculoskeletal: Denies arthralgias Integumentary Denies abscess or Abrasions Neurologic Neurologic: Denies headache(s) or paresthesias Psychiatric Psychiatric: Reports anxiety; Denies depression, suicidal ideation or suicidal thoughts EXAM Physical Exam Const Vital Signs: 03/20/22 19:30 03/20/22 20:24 03/20/22 20:24 Temperature 97.1 F L Temperature Source Temporal Pulse Rate 113 H 109 H Respiratory Rate 14 16 Respiratory Effort Normal Respiratory Pattern Normal Blood Pressure 155/74 H 147/90 H Blood Pressure Mean 101 109 Pulse Ox 98 97 Oxygen Delivery Method Room Air Room Air 03/20/22 22:44 03/20/22 22:44 Temperature Temperature Source Pulse Rate 90 Respiratory Rate 13 Respiratory Effort Respiratory Pattern Blood Pressure 134/81 H Blood Pressure Mean 98 Pulse Ox 97 Oxygen Delivery Method Room Air Room Air Positive well nourished General Appearance ED: NAD; Negative for pallor HEENT Reports moist mucous membranes Eyes PERRL and EOMs intact bilaterally General Eye ED: Negative for pale conjunctiva or scleral icterus Chest Wall Chest Narrative: Tenderness to palpation of the sternum. No crepitance. Equal symmetric breath sounds and chest wall rise Resp normal respiratory effort and clear to auscultation bilaterally Auscultation: Negative for rales, rhonchi or wheezes Cardio regular rhythm Rate: tachycardic GI normal to inspection, nondistended, normoactive bowel sounds Neuro oriented x3 and CN's II-XII intact bilaterally Sensorium / Orientation: alert Psych mental status grossly normal Skin no rashes or lesions noted General Skin Exam: Negative for jaundice or pallor MDM MDM MDM Narrative Medical decision making narrative: Patient presenting with palpitations states she has chest discomfort. She describes it as a sharpness in the sternal area. On examination is reproducible. Her lungs are clear to auscultation. EKG on my interpretation shows a sinus rhythm with a ventricular rate of 118 bpm without sign of ischemic change or dysrhythmia. Chest x-ray my interpretation is no acute cardiopulmonary process. Patient is not tachypneic or hypoxic. And is 98% on room air. I have low suspicion for PE. D-dimer was checked and is negative at 0.42. CBC and BMP are unremarkable. High-sensitivity troponin is 4. Given patient's ultimately negative work-up I feel she safe for discharge home. Return precautions were discussed. Impression: 1. Palpitations 2. Chest pain noncardiac Lab Data Attestation: I reviewed the patient's lab results. Labs: Laboratory Results - last 24 hr 03/20/22 03/20/22 03/20/22 20:23 20:23 20:40 WBC 6.6 RBC 4.34 Hgb 12.1 Hct 38.5 MCV 88.7 MCH 27.9 MCHC 31.4 L RDW Std Deviation 47.8 H RDW Coeff of [place] 14.7 H Plt Count 330 MPV 10.3 Immature Gran % (Auto) 0.300 Neut % (Auto) 64.6 Lymph % (Auto) 27.1 [place] % (Auto) 5.8 Eos % (Auto) 1.1 Baso % (Auto) 1.1 H Absolute Neuts (auto) 4.3 Absolute Lymphs (auto) 1.78 Nucleated RBC % 0 D-Dimer Quant (PE/DVT) 0.42 Sodium 141 Potassium 4.1 Chloride 108 H Carbon Dioxide 24.0 Anion Gap 9 BUN 22 H Creatinine 1.12 H Estim Creat Clear Calc 48.43 Est GFR (MDRD) Af Amer 65 Est GFR (MDRD) Non-Af 53 L BUN/Creatinine Ratio 19.6 Glucose 113 H Calcium 10.0 Troponin I High Sens 4 Radiography Diagnostic Testing: Clinical Impression(s) from Imaging Studies Chest X-Ray 03/20/22 21:55 IMPRESSION: No radiographic evidence of acute cardiopulmonary disease. Electronically Signed: Elisha Beasley MD at 22:14 EDT , Discharge Plan Triage Chief Complaint: Palpitations ED Provider: Jac Gomez Dx/Rx/DC Orders Instructions: ED Chest Pain, Noncardiac, ED Palpitations Prescriptions: No Action rosuvastatin 40 MG tablet 40 mg PO DAILY duloxetine 60 MG capsule,delayed release(DR/EC) 60 mg PO DAILY Label Comments: TAKE ONE CAPSULE BY MOUTH ONCE A DAY DIRECTED insulin lispro 100 UNIT/ML insulin pen See Protocol SC ACHS 0RF Protocol: 3. Sliding Scale Insulin Med Dosing Condition: 150-189 mg/dl = 1 unit Condition: 190-229 mg/dl = 2 units Condition: 230-269 mg/dl = 3 units Condition: 270-309 mg/dl = 4 units Condition: 310-349 mg/dl = 5 units Condition: 350-399 mg/dl = 6 units Condition: 400-449 mg/dl = 7 units Condition: Greater than 449 call physician Protocol Text: - Use for Total Daily Dose of Insulin 37-55 units - Obsese, infected, or steroid patients MEDIUM DOSING ALGORITHIM metformin 500 MG tablet 1,000 mg PO BIDAC Qty: 0 0RF Rx Instructions: Hold for 5 days benazepril 10 mg tablet 5 mg PO DAILY Qty: 90 1RF insulin glargine 100 UNITS/ML insulin pen 43 units SQ QHS Qty: 0 0RF insulin lispro 100 UNIT/ML insulin pen 15 unit SQ TIDCM Qty: 1 2RF Rx Instructions: Hold if glucose less than 130 mg/dl meloxicam 15 MG tablet 15 mg DAILY pregabalin 100 mg capsule 100 mg PO TID Qty: 90 0RF Primary Care Provider: Care Physician,No Primary Referrals: Care Physician,No Primary [Primary Care Provider] - Disposition Disposition: Home, Self Care
[2022-03-20 21:20] LABS: Anion Gap 9 (5-15); BUN 22 mg/dL (7-18); BUN/Creat Ratio 19.6 RATIO (10-20); Chloride 108 mmol/L (98-107); Creatinine, Serum 1.12 mg/dL (0.55-1.02); EST Glomerular Filtration Rate 53 mL/min (>60); Est Glom Filt Rate - Afr Amer 65 mL/min (>60); Estimated Creatinine Clearance 48.43 ml/min; Glucose 113 mg/dL (74-106); Potassium 4.1 mmol/L (3.5-5.1); Sodium Level 141 mmol/L (136-145); Troponin-I HS 4 pg/mL (3.0-54.0)
--- NOTE | 2022-03-20 21:55 | RAD_ITS ---
EXAM: XR CHEST, 1 VIEW CLINICAL INDICATION: chest pain TECHNIQUE: Frontal view of the chest. This report was created using [employer] report generation technology. COMPARISON: October 13, 2021, March 31, 2021, December 18, 2018. FINDINGS: LUNGS AND PLEURAL SPACES: Unremarkable. No consolidation or edema. No pneumothorax. No effusion. HEART: Unremarkable. Cardiac silhouette not enlarged. MEDIASTINUM: Central airways and mediastinal contour are unremarkable. BONES/JOINTS: Unremarkable. SOFT TISSUES: Unremarkable. RAD/Chest 1 View (Portable) IMPRESSION: No radiographic evidence of acute cardiopulmonary disease. Electronically Signed: Elisha Beasley MD at 22:14 EDT ,
[2022-03-20 22:44] VITALS: BP 134/81; PULSE 90; RESP 13; O2SAT 97
[2022-03-20] MEDS: Aspirin 81 MG TAB.CHEW 324 MG PO (22:45)
[2022-03-20] MEDS: 0.9% Normal Saline 1,000 ML 999 ML IV (22:45)
[2022-03-20] MEDS: Ketorolac 15 MG/ML Vial IV (22:46)
[2022-03-20 23:03] LABS: D-Dimer Quantitative (DVT/PE) 0.42 FEU/ug/m (0.27-0.49)
[2022-03-21 00:31] VITALS: BP 132/74; PULSE 88; RESP 17; O2SAT 95
== END 2022-03-21 00:31 | disposition home or self-care (01) ==
PROVIDERS: Emergency Provider Student in an Organized Health Care Education/Training Program; Visit Provider Student in an Organized Health Care Education/Training Program
DX: R07.89 Other chest pain (principal); E11.40 Type 2 diabetes mellitus with diabetic neuropathy, unspecified; Z79.4 Long term (current) use of insulin; R00.2 Palpitations; M19.90 Unspecified osteoarthritis, unspecified site; Z79.84 Long term (current) use of oral hypoglycemic drugs; Z79.899 Other long term (current) drug therapy
CPT/HCPCS: 71045; 80048; 84484; 85025; 85379; 93005; 96361; 96374; 99285; J7030; A4216

== ENCOUNTER 2022-08-19 13:26 | Emergency (ER) | payer MEDICARE, SELFPAY ==
[2022-08-19 13:26] VITALS: BP 130/91; PULSE 140; RESP 18; TEMP 35.8; O2SAT 100; BMI 29.0
[2022-08-19] MEDS: 0.9% Normal Saline 1,000 ML 1000 ML IV (13:45)
[2022-08-19] MEDS: Ondansetron 4 MG/2 ML Vial IV (13:45)
--- NOTE | 2022-08-19 13:57 | EDS_ITS ---
HPI HPI - GI History of Present Illness Chief Complaint: Abd Pain Detail of Chief Complaint: Per triage abdominal pain Per my interview nausea and vomiting Informant: patient and parent Abdominal Pain/Flank Pain Onset: Days (Onset 2 to 3 days ago.) Context: Sudden Onset Timing: Intermittent Quality: - (Denied pain when I asked her.) Worsened by: Nothing Relieved by: Nothing Nausea/Vomiting/Emesis GI Symptom: Positive for Nausea, Vomiting and - (3+ times per day for the last 2 to 3 days) Quality: Negative for Blood streaks, Coffee ground or Hematemesis Severity: Moderate Associated Symptoms Associated Symptoms: Negative for Dysuria, Frequency, Hematuria or Urgency Narrative Narrative: Patient is a 56-year-old woman with history of type 2 diabetes, mixed hyperlipidemia, hiatal hernia, anxiety disorder, hypertension who presents with nausea and vomiting for the past several days. She denies blood or coffee- ground appearing emesis. She denies black or maroon-colored stool. She denies blood per rectum. She denies orthostatic symptoms. She does endorse dry mouth and thirst. She denies decreased urine output. She has not taken anything for her nausea and vomiting. She did check her blood sugar prior to arrival and was 160. This is slightly higher than normal. Patient denies any ill contacts. Patient denies fever or chills. Patient denies headache, visual, ocular auditory symptoms. Patient denies respiratory symptoms. Patient denies dysuria, hematuria or urgency. Prior similar symptoms: Yes Recent Illness/Hospitalization: No [facility] Medical History (Updated 08/19/22 @ 15:[address] Fernando Lora MD) Arthritis Back problem Chronic headaches Neuropathy Pancreatitis Seasonal allergies Type 2 diabetes mellitus Home Medications rosuvastatin 40 mg tablet 40 mg PO DAILY 05/26/16 [History Last Taken 08/02/20] duloxetine 60 mg capsule,delayed release 60 mg PO DAILY 05/06/18 [History Last Taken 08/03/20] pregabalin 100 mg capsule 100 mg PO TID #90 caps 01/08/20 [Rx Last Taken 08/03/20] benazepril 10 mg tablet 5 mg PO DAILY #90 tabs 08/05/20 [Rx Last Taken 08/03/20] insulin glargine 100 unit/mL (3 mL) subcutaneous pen 43 units (0.43 mL) SQ QHS DM ##0 08/05/20 [Rx Last Taken 08/02/20] insulin lispro 100 unit/mL subcutaneous pen 15 unit (0.15 mL) SQ TIDCM ##1 08/05/20 [Rx Last Taken Unknown] insulin lispro 100 unit/mL subcutaneous pen See Protocol subcut ACHS 08/05/20 [Rx Last Taken Unknown] metformin 500 mg tablet 1,000 mg PO BIDAC DM ##0 08/05/20 [Rx Last Taken 08/03/20] meloxicam 15 mg DAILY 11/03/20 [History Last Taken Unknown] ondansetron 4 mg disintegrating tablet 4 mg PO Q8H PRN PRN Nausea #10 tabs 08/19/22 [Rx Last Taken Unknown] Allergy/AdvReac Type Severity Reaction Status Date / Time empagliflozin Allergy Unknown Unknown Verified 08/19/22 13:28 [From Jardiance] amoxicillin Allergy Itching Verified 08/19/22 13:28 dulaglutide [From Trulicity] Allergy Itching Verified 08/19/22 13:28 Family History Unknown Arthritis Diabetes Myocardial infarction Heart disease Hypertension Osteoporosis Severe allergic reaction Skin cancer Social History household members: family Smoking Status: Never smoker alcohol intake: never substance use type: does not use what type of physical activity do you participate in: none ROS ROS ED Constitutional Constitutional ED: Denies chills, fever(s), subjective, sweats or weight loss ENT ENT ED: Denies ear pain, rhinorrhea or sore throat Cardiovascular Cardiovascular: Denies chest pain, palpitations or racing heartbeat Respiratory/Chest Respiratory/Chest: Denies cough, dyspnea or dyspnea on exertion Gastrointestinal Gastrointestinal: Reports nausea and vomiting; Denies abdominal pain, constipation or melena Genitourinary Genitourinary ED: Denies dysuria, hematuria or urinary frequency Musculoskeletal Musculoskeletal: Denies arthralgias, back pain, myalgias or neck pain Integumentary Denies abscess, Abrasions or rash Neurologic Neurologic: Denies headache(s), paresthesias or weakness Hematologic/Lymphatic Hematologic/Lymphatic: Denies easy bleeding or easy bruising EXAM Physical Exam Const Vital Signs: 02/11/23 13:26 Temperature 96.5 F L Temperature Source Temporal Pulse Rate 140 H Respiratory Rate 18 Blood Pressure 130/91 H Blood Pressure Mean 104 Pulse Ox 100 Oxygen Delivery Method Room Air Positive well nourished and well developed General Appearance ED: well developed, NAD and pallor HEENT Reports dry mucous membranes HEENT Narrative: Ears are normal. Posterior pharynx without erythema or exudate. Uvula is midline. normocephalic and atraumatic Mouth ED: Yes dry mucous membranes Mouth: dry mucous membranes Eyes PERRL and EOMs intact bilaterally General Eye ED: Negative for pale conjunctiva or scleral icterus Neck no lymphadenopathy and no JVD Resp normal respiratory effort and clear to auscultation bilaterally Cardio regular rhythm, S1 normal heart sound, S2 normal heart sound and no murmurs Rate: tachycardic GI non-tender, non-distended and no masses Palpation: soft Back/Spine no CVA tenderness Thoracic Spine / Upper Back: Negative for thoracic spinal tenderness Lumbar Spine / Lower Back: Negative for lumbar spinal tenderness Extremity full ROM General Extremety ED: Negative for edema General Extremity: Negative for edema Neuro CN's II-XII intact bilaterally, moves all extremities and no sensory deficits noted Sensorium / Orientation: alert Psych Psych Narrative: Affect is flat and mood is depressed. Skin no wounds Skin Narrative: Skin turgor is diminished. General Skin Exam: pallor; Negative for jaundice Lesions: no lesions Rashes: no rashes MDM MDM MDM Narrative Medical decision making narrative: Patient clinically is dehydrated from nausea vomiting. Her heart rate is elevated to 140 in triage and monitor revealed sinus tachycardia of 115. Since she is diabetic we will obtain a basic metabolic panel to assess renal function, CO2 anion gap and glucose. 1 L of normal saline was ordered. 4 mg of Zofran was ordered for her nausea and vomiting. She informed the nurse that she is experiencing 10 out of 10 abdominal pain. My exam she was nontender. Suspect this is colicky and will treat with p.o. Bentyl. This will also suffice as a p.o. challenge. Patient was reassessed at 1551. She is no longer vomiting. She has no nausea. She was informed of results. She was informed of the discharge plan. She understands. Lab Data Attestation: I reviewed the patient's lab results. Lab results narrative: Basic metabolic panel is remarkable for an elevated BUN to creatinine ratio of 27:1. Glucose is 193 with a normal CO2 and anion gap. The results are consistent with prerenal azotemia due to dehydration. UA is cloudy. Specific areas 1.025. Macro was positive for protein, glucose, occult blood and leukoesterase. Negative for nitrites. Micro indicates a contaminated specimen with 25 epithelial cells. No further interpretation. Urine is consistent with dehydration/prerenal azotemia. Labs: Laboratory Results - last 24 hr 08/19/22 08/19/22 13:35 14:35 Sodium 140 Potassium 3.7 Chloride 104 Carbon Dioxide 28.0 Anion Gap 8 BUN 27 H Creatinine 0.99 Estim Creat Clear Calc 54.79 Est GFR (MDRD) Af Amer 74 Est GFR (MDRD) Non-Af 61 BUN/Creatinine Ratio 27.2 H Glucose 193 H Calcium 10.2 H Urine Color Yellow Urine Clarity Sl. Cloudy Urine pH 5.0 Ur Specific [place] 1.025 Urine Protein 30 H Urine Glucose (UA) 250 H Urine Ketones Negative Urine Occult Blood 10 H Urine Nitrite Negative Urine Bilirubin Negative Urine Urobilinogen Normal Ur Leukocyte Esterase 500 H Urine RBC 0-5 SEEN Urine WBC 25-50 SEEN Ur Squamous Epith Cells 10-25 SEEN Calcium Oxalate Crystal 1+ Urine Bacteria 1+ Urine Mucus 0 SEEN Discharge Plan Triage Chief Complaint: Abd Pain ED Provider: Fernando Lora Dx/Rx/DC Orders Clinical Impression: Nausea & vomiting, Acute prerenal azotemia, Acute dehydration, Hyperglycemia due to type 2 diabetes mellitus, Ketosis, Sinus tachycardia Instructions: ED Vomiting (Adult) Prescriptions: New ondansetron [ondansetron] 4 mg tablet,disintegrating 4 mg PO Q8H PRN PRN (Reason: Nausea) Qty: 10 0RF No Action rosuvastatin 40 MG tablet 40 mg PO DAILY duloxetine 60 MG capsule,delayed release(DR/EC) 60 mg PO DAILY Label Comments: TAKE ONE CAPSULE BY MOUTH ONCE A DAY DIRECTED insulin lispro 100 UNIT/ML insulin pen See Protocol SC ACHS 0RF Protocol: 3. Sliding Scale Insulin Med Dosing Condition: 150-189 mg/dl = 1 unit Condition: 190-229 mg/dl = 2 units Condition: 230-269 mg/dl = 3 units Condition: 270-309 mg/dl = 4 units Condition: 310-349 mg/dl = 5 units Condition: 350-399 mg/dl = 6 units Condition: 400-449 mg/dl = 7 units Condition: Greater than 449 call physician Protocol Text: - Use for Total Daily Dose of Insulin 37-55 units - Obsese, infected, or steroid patients MEDIUM DOSING ALGORITHIM metformin 500 MG tablet 1,000 mg PO BIDAC Qty: 0 0RF Rx Instructions: Hold for 5 days benazepril 10 mg tablet 5 mg PO DAILY Qty: 90 1RF insulin glargine 100 UNITS/ML insulin pen 43 units SQ QHS Qty: 0 0RF insulin lispro 100 UNIT/ML insulin pen 15 unit SQ TIDCM Qty: 1 2RF Rx Instructions: Hold if glucose less than 130 mg/dl meloxicam 15 MG tablet 15 mg DAILY pregabalin 100 mg capsule 100 mg PO TID Qty: 90 0RF Primary Care Provider: Rod Chew Referrals: Rod Chew DO [Primary Care Provider] - 1-2 Days if not improving Disposition Disposition: Home, Self Care
[2022-08-19] MEDS: Dicyclomine 10 MG Capsule 20 MG PO (14:01)
[2022-08-19 14:05] LABS: Anion Gap 8 (5-15); BUN 27 mg/dL (7-18); BUN/Creat Ratio 27.2 RATIO (10-20); Calcium,Total 10.2 mg/dL (8.5-10.1); Chloride 104 mmol/L (98-107); Creatinine, Serum 0.99 mg/dL (0.55-1.02); EST Glomerular Filtration Rate 61 mL/min (>60); Est Glom Filt Rate - Afr Amer 74 mL/min (>60); Estimated Creatinine Clearance 54.79 ml/min; Glucose 193 mg/dL (74-106); Potassium 3.7 mmol/L (3.5-5.1); Sodium Level 140 mmol/L (136-145)
[2022-08-19 14:51] LABS: Mucous, Urine 0 SEEN /hpf (<or=2+)
[2022-08-19 15:07] LABS: Color, Urine Yellow (Yellow); Glucose, Dipstick 250 mg/dl (Normal); Ketone-Dipstick Negative (Negative); Leukocyte Esterase-Dipstick 500 /ul (Negative); Nitrite-Dipstick Negative (Negative); Occult Blood-Urine 10 /ul (Negative); Protein-Dipstick 30 mg/dl (Negative); Specific Gravity, Urine 1.025 (1.002-1.030); Urine Bilirubin Dipstick Negative (Negative); Urine Clarity Sl. Cloudy (Clear); Urine Urobilinogen Normal (Normal)
[2022-08-19 15:17] LABS: Bacteria 1+ /hpf (None Seen); Calcium Oxalate Crystals Ur 1+ /hpf (<or=2+); Red Blood Cells-Urine 0-5 SEEN /hpf (0-5); Squamous Epithelial Cells - UA 10-25 SEEN /hpf (5-10); White Blood Cells 25-50 SEEN /hpf (0-5)
[2022-08-19] MEDS: Metoclopramide 10 MG Tablet PO (15:18)
--- NOTE | 2022-08-19 15:21 | ED.RN ---
PT CONTINUES TO COMPLAIN ABOUT 10 OUT OF [address] SLAUGHTER
[2022-08-19 16:01] VITALS: BP 139/78; PULSE 89
== END 2022-08-19 16:03 | disposition home or self-care (01) ==
PROVIDERS: Emergency Provider Emergency Medicine; PCP Student in an Organized Health Care Education/Training Program; Visit Provider Emergency Medicine
DX: E11.65 Type 2 diabetes mellitus with hyperglycemia (principal); E11.40 Type 2 diabetes mellitus with diabetic neuropathy, unspecified; E11.10 Type 2 diabetes mellitus with ketoacidosis without coma; R11.2 Nausea with vomiting, unspecified; E86.0 Dehydration; F41.9 Anxiety disorder, unspecified; E78.2 Mixed hyperlipidemia; I10 Essential (primary) hypertension; R79.89 Other specified abnormal findings of blood chemistry
CPT/HCPCS: 80048; 81001; 96361; 96374; 99284; A4216; J2405

== ENCOUNTER 2022-11-27 20:51 | Emergency (ER) | payer MEDICARE, SELFPAY ==
[2022-11-27 20:52] VITALS: BP 188/107; PULSE 118; RESP 22; TEMP 36.4; O2SAT 98; BMI 30.3
--- NOTE | 2022-11-27 21:00 | EKG12_ITS ---
Test Reason : GEN ILL Blood Pressure : / mmHG Vent. Rate : 108 BPM Atrial Rate : 108 BPM P-R Int : 148 ms QRS Dur : 078 ms QT Int : 326 ms P-R-T Axes : 045 018 063 degrees QTc Int : 436 ms Sinus tachycardia Otherwise normal ECG Confirmed by SHOAIB REY, ROB ([id number]), editorial writer SWETA OCASIO ([id number]) on 11/29/2022 2:03:59 PM Referred By: Confirmed By:ROB CRAMER MD
--- NOTE | 2022-11-27 21:06 | EX.ED.DYSGE1 ---
HPI History of Present Illness Chief Complaint: Hyperglycemia Informant: patient and family Onset/Context/Timing Onset: Days Context: Gradual Onset Timing: Continuous Current Severity: Moderate Maximum Severity: Moderate Narrative Narrative: 57-year-old female history of insulin-dependent diabetes. States her blood sugars last 3 days having greater than 400 today greater than 600. Nausea without vomiting. She has had some loose stools. No constipation. No dysuria. She denies fever. Prior similar symptoms: Yes Recent Illness/Hospitalization: No [facility] PFSH Medical History Arthritis Back problem Chronic headaches Neuropathy Pancreatitis Seasonal allergies Type 2 diabetes mellitus Home Medications rosuvastatin 40 mg tablet 40 mg PO DAILY 05/26/16 [History Last Taken 08/02/20] duloxetine 60 mg capsule,delayed release 60 mg PO DAILY 05/06/18 [History Last Taken 08/03/20] pregabalin 100 mg capsule 100 mg PO TID #90 caps 01/08/20 [Rx Last Taken 08/03/20] benazepril 10 mg tablet 5 mg PO DAILY #90 tabs 08/05/20 [Rx Last Taken 08/03/20] insulin glargine 100 unit/mL (3 mL) subcutaneous pen 43 units (0.43 mL) SQ QHS DM ##0 08/05/20 [Rx Last Taken 08/02/20] insulin lispro 100 unit/mL subcutaneous pen 15 unit (0.15 mL) SQ TIDCM ##1 08/05/20 [Rx Last Taken Unknown] insulin lispro 100 unit/mL subcutaneous pen See Protocol subcut ACHS 08/05/20 [Rx Last Taken Unknown] metformin 500 mg tablet 1,000 mg PO BIDAC DM ##0 08/05/20 [Rx Last Taken 08/03/20] meloxicam 15 mg DAILY 11/03/20 [History Last Taken Unknown] ondansetron 4 mg disintegrating tablet 4 mg PO Q8H PRN PRN Nausea #10 tabs 08/19/22 [Rx Last Taken Unknown] Allergy/AdvReac Type Severity Reaction Status Date / Time empagliflozin Allergy Unknown Unknown Verified 08/19/22 13:28 [From Jardiance] amoxicillin Allergy Itching Verified 08/19/22 13:28 dulaglutide [From Trulicity] Allergy Itching Verified 08/19/22 13:28 Family History Unknown Arthritis Diabetes Myocardial infarction Heart disease Hypertension Osteoporosis Severe allergic reaction Skin cancer Social History household members: family Smoking Status: Never smoker alcohol intake: never substance use type: does not use what type of physical activity do you participate in: none ROS ROS ED ROS Narrative Stools. Nausea. Review of Systems ROS Unobtainable: Denies due to encephalopathy Constitutional Constitutional ED: Denies chills or fever(s) Eyes Eyes: Denies blurry vision ENT ENT ED: Denies ear pain Cardiovascular Cardiovascular: Denies chest pain Respiratory/Chest Respiratory/Chest: Denies cough or dyspnea Gastrointestinal Gastrointestinal: Reports diarrhea and nausea; Denies abdominal pain, constipation, melena or vomiting Genitourinary Genitourinary ED: Denies dysuria or hematuria Musculoskeletal Musculoskeletal: Denies arthralgias Integumentary Denies abscess Neurologic Neurologic: Denies headache(s) Psychiatric Psychiatric: Denies anxiety or depression Endocrine Endocrinology: Denies cold intolerance Hematologic/Lymphatic Hematologic/Lymphatic: Reports none Allergic/Immunologic Allergic/Immunologic ED: Denies mouth swelling or tongue swelling EXAM Physical Exam Narrative Exam Narrative: 7-year-old female no acute distress vital signs stable. Afebrile. Does not septic toxic. HEENT exam mild dry mucous membranes. No facial droop. Normal speech. Lungs clear to auscultation. Heart tachycardic rate about 115 no murmur. Chest wall nontender. Abdomen soft nondistended normal bowel sounds no peritoneal signs. No significant tenderness. Right upper right lower quadrant unremarkable. Moving all 4 extremities. Nontender no edema. Back nontender Const Vital Signs: 11/27/22 20:52 Temperature 97.5 F L Temperature Source Temporal Pulse Rate 118 H Respiratory Rate 22 H Blood Pressure 188/107 H Blood Pressure Mean 134 Pulse Ox 98 Oxygen Delivery Method Room Air Positive well nourished and well developed; Negative for cachectic, contractures or unkempt General Appearance ED: well developed and NAD; Negative for unkempt, cachectic, contractures, cyanotic, diaphoretic or pallor Nutritional Appearance: Negative for cachectic HEENT Reports dry mucous membranes; Denies moist mucous membranes Negative for trauma or tenderness Mouth ED: Yes dry mucous membranes Mouth: dry mucous membranes Eyes PERRL and EOMs intact bilaterally General Eye ED: Negative for pale conjunctiva or scleral icterus Neck no lymphadenopathy, supple and no JVD Lymph Lymphatic: Negative for other Chest Wall inspection of chest normal and palpation of chest normal Chest: Negative for other Resp normal respiratory effort and clear to auscultation bilaterally Effort and Inspection: Negative for retractions Auscultation: Negative for rales, rhonchi or wheezes Cardio regular rhythm, S1 normal heart sound, S2 normal heart sound and no murmurs; Negative for regular rate Rate: tachycardic GI normal to inspection, nondistended, normoactive bowel sounds, non-tender, non-distended and no masses Inspection: Negative for abdominal distention Auscultation: normoactive bowel sounds Palpation: soft; Negative for tender or guarding Bladder / Kidney Exam: No other Back/Spine no CVA tenderness General Back: Negative for CVA tenderness Cervical Spine: Negative for cervical spine tenderness Thoracic Spine / Upper Back: Negative for thoracic spinal tenderness Lumbar Spine / Lower Back: Negative for lumbar spinal tenderness Extremity normal to inspection General Extremety ED: Negative for edema or tenderness General Extremity: Negative for edema Neuro oriented x3 and CN's II-XII intact bilaterally Sensorium / Orientation: alert; Negative for orientation impaired, lethargic or stuporous Motor Exam: strength 5/5 throughout Psych mental status grossly normal Appearance: Negative for unkempt Attitude: No agitated Mood & Affect: Negative for depressed, anxious or tearful Skin no rashes or lesions noted and no wounds General Skin Exam: Negative for jaundice or pallor Lesions: No lesion noted Rashes: No rashes noted Trauma: Negative for abrasion Wounds: Negative for wounds noted MDM MDM MDM Narrative Medical decision making narrative: 57-year-old female with elevated blood sugar and known history of diabetes. Should be of rule out DKA right versus hyperosmotic nonketotic coma versus just hyperglycemia. She was treated 2 L normal saline. Labs to be obtained. Repeat exam patient is doing well at 11:15 PM. Repeat blood sugars 425 after liter fluid. She is given a second liter. She will be given subcu insulin and then the blood sugar be rechecked. She is comfortable being discharged tonight if we get the blood sugar down to a reasonable level. She will be checked out to the overnight physician for with a repeat blood sugar levels after the insulin. History & Record Review Discussion w/independent historian: Patient and Family Lab Data Attestation: I reviewed the patient's lab results. Lab results narrative: CBC shows white count 3.7. H&H 11.7 and 38. Platelets 308. Electrolytes show a gap of 9 BUN and creatinine of 16 and 1. Glucose is elevated at 591. Liver enzymes are unremarkable. Urinalysis is negative. Serum ketones are negative. Patient is not in DKA she does not have serum ketones nor an elevated anion gap. Repeat blood sugar after first liter of fluid is 425. Labs: Laboratory Results - last 24 hr 11/27/22 11/27/22 11/27/22 20:57 21:16 21:16 WBC 3.7 L RBC 4.39 Hgb 11.7 L Hct 38.1 MCV 86.8 MCH 26.7 L MCHC 30.7 L RDW Std Deviation 49.9 H RDW Coeff of [place] 15.7 H Plt Count 308 MPV 9.9 Immature Gran % (Auto) 0.300 Neut % (Auto) 50.2 Lymph % (Auto) 41.1 H Richardson % (Auto) 6.5 Eos % (Auto) 0.8 Baso % (Auto) 1.1 H Absolute Neuts (auto) 1.9 L Absolute Lymphs (auto) 1.53 Nucleated RBC % 0 Sodium 138 Potassium 4.2 Chloride 104 Carbon Dioxide 25.0 Anion Gap 9 BUN 16 Creatinine 1.04 H Estim Creat Clear Calc 51.54 Est GFR (MDRD) Af Amer 70 Est GFR (MDRD) Non-Af 58 L BUN/Creatinine Ratio 15.4 Glucose 591 H* Calcium 9.2 Total Bilirubin 0.60 AST 18 ALT 28 Alkaline Phosphatase 138 H Total Protein 7.3 Albumin 3.7 Globulin 3.6 Albumin/Globulin Ratio 1.0 Urine Color Urine Clarity Urine pH Ur Specific [place] Urine Protein Urine Glucose (UA) Urine Ketones Urine Occult Blood Urine Nitrite Urine Bilirubin Urine Urobilinogen Ur Leukocyte Esterase Urine RBC Urine WBC Ur Squamous Epith Cells Urine Bacteria Urine Mucus [place]etone Level POC Glucose > 500 H* 11/27/22 11/27/22 11/27/22 21:16 21:16 22:42 WBC RBC Hgb Hct MCV MCH MCHC RDW Std Deviation RDW Coeff of [place] Plt Count MPV Immature Gran % (Auto) Neut % (Auto) Lymph % (Auto) Richardson % (Auto) Eos % (Auto) Baso % (Auto) Absolute Neuts (auto) Absolute Lymphs (auto) Nucleated RBC % Sodium Potassium Chloride Carbon Dioxide Anion Gap BUN Creatinine Estim Creat Clear Calc Est GFR (MDRD) Af Amer Est GFR (MDRD) Non-Af BUN/Creatinine Ratio Glucose Calcium Total Bilirubin AST ALT Alkaline Phosphatase Total Protein Albumin Globulin Albumin/Globulin Ratio Urine Color Straw Urine Clarity Clear Urine pH 7.0 Ur Specific [place] 1.010 Urine Protein Negative Urine Glucose (UA) 1000 H Urine Ketones Negative Urine Occult Blood Negative Urine Nitrite Negative Urine Bilirubin Negative Urine Urobilinogen Normal Ur Leukocyte Esterase Negative Urine RBC 0 SEEN Urine WBC 0-5 SEEN Ur Squamous Epith Cells 0 SEEN Urine Bacteria 0 SEEN Urine Mucus 0 SEEN Acetone Level NEGATIVE POC Glucose 425 H Discharge Plan Triage Chief Complaint: Hyperglycemia ED Provider: Fransisco Henson Dx/Rx/DC Orders Prescriptions: No Action rosuvastatin 40 MG tablet 40 mg PO DAILY duloxetine 60 MG capsule,delayed release(DR/EC) 60 mg PO DAILY Label Comments: TAKE ONE CAPSULE BY MOUTH ONCE A DAY DIRECTED insulin lispro 100 UNIT/ML insulin pen See Protocol SC ACHS 0RF Protocol: 3. Sliding Scale Insulin Med Dosing Condition: 150-189 mg/dl = 1 unit Condition: 190-229 mg/dl = 2 units Condition: 230-269 mg/dl = 3 units Condition: 270-309 mg/dl = 4 units Condition: 310-349 mg/dl = 5 units Condition: 350-399 mg/dl = 6 units Condition: 400-449 mg/dl = 7 units Condition: Greater than 449 call physician Protocol Text: - Use for Total Daily Dose of Insulin 37-55 units - Obsese, infected, or steroid patients MEDIUM DOSING ALGORITHIM metformin 500 MG tablet 1,000 mg PO BIDAC Qty: 0 0RF Rx Instructions: Hold for 5 days benazepril 10 mg tablet 5 mg PO DAILY Qty: 90 1RF insulin glargine 100 UNITS/ML insulin pen 43 units SQ QHS Qty: 0 0RF insulin lispro 100 UNIT/ML insulin pen 15 unit SQ TIDCM Qty: 1 2RF Rx Instructions: Hold if glucose less than 130 mg/dl meloxicam 15 MG tablet 15 mg DAILY ondansetron [ondansetron] 4 mg tablet,disintegrating 4 mg PO Q8H PRN PRN (Reason: Nausea) Qty: 10 0RF pregabalin 100 mg capsule 100 mg PO TID Qty: 90 0RF Primary Care Provider: Rod hCew Referrals: Rod Chew DO [Primary Care Provider] -
[2022-11-27 21:15] LABS: Bedside Glucose > 500 mg/dL (74-106)
[2022-11-27] MEDS: 0.9% Normal Saline 1,000 ML 999 ML IV ×2 (21:17→22:39)
[2022-11-27 21:29] LABS: Bacteria 0 SEEN /hpf (None Seen); Mucous, Urine 0 SEEN /hpf (<or=2+); Red Blood Cells-Urine 0 SEEN /hpf (0-5); Squamous Epithelial Cells - UA 0 SEEN /hpf (5-10)
[2022-11-27 21:44] LABS: Color, Urine Straw (Yellow); Glucose, Dipstick 1000 mg/dl (Normal); Ketone-Dipstick Negative (Negative); Leukocyte Esterase-Dipstick Negative /ul (Negative); Nitrite-Dipstick Negative (Negative); Occult Blood-Urine Negative /ul (Negative); Protein-Dipstick Negative (Negative); Urine Bilirubin Dipstick Negative (Negative); Urine Clarity Clear (Clear); Urine Urobilinogen Normal (Normal)
[2022-11-27 21:45] LABS: Absolute Lymphocyte Count 1.53 X10^3/uL (0.83-4.51); Absolute Neutrophil Count 1.9 X10^3/uL (2.0-7.7); Basophil# 0.04 X10^3/uL; Basophil% 1.1 % (0-1); Eosinophil# 0.03 X10^3/uL; Eosinophils% 0.8 % (0-5); Hematocrit 38.1 % (37-47); Hemoglobin 11.7 g/dL (12.0-15.0); Lymphocyte # 1.53 X10^3/ul (0.83-4.51); Lymphocyte % 41.1 % (19-41); Mean Corp Hgb Conc 30.7 g/dL (32-36); Mean Corpuscular Hgb 26.7 pg (27.0-32.0); Mean Corpuscular Volume 86.8 fL (81-99); Mean Platelet Vol. 9.9 fl (6.2-12.0); Monocyte# 0.24 X10^3/uL; Monocyte% 6.5 % (0-10); NRBC Flagged by Analyzer 0 % (0-5); Neutrophil # 1.87 X10^3/uL (2.7-7.7); Neutrophil % 50.2 % (47-70); Platelet Count 308 K/mm3 (150-450); RBC Distribution Width CV 15.7 % (11.6-14.6); RBC Distribution Width SD 49.9 fl (35.1-43.9); Red Blood Count 4.39 M/mm3 (4.2-5.4); White Blood Count 3.7 K/mm3 (4.4-11.0)
[2022-11-27 22:10] LABS: AST(SGOT) 18 U/L (15-37); Alanine Aminotransfer ALT/SGPT 28 U/L (13-56); Albumin, Serum 3.7 g/dL (3.2-5.0); Alkaline Phosphatase 138 U/L (45-117); Anion Gap 9 (5-15); BUN 16 mg/dL (7-18); BUN/Creat Ratio 15.4 RATIO (10-20); Calcium,Total 9.2 mg/dL (8.5-10.1); Chloride 104 mmol/L (98-107); Creatinine, Serum 1.04 mg/dL (0.55-1.02); EST Glomerular Filtration Rate 58 mL/min (>60); Est Glom Filt Rate - Afr Amer 70 mL/min (>60); Estimated Creatinine Clearance 51.54 ml/min; Globulin 3.6 g/dL (2.2-4.2); Glucose 591 mg/dL (74-106); Potassium 4.2 mmol/L (3.5-5.1); Protein, Total 7.3 g/dL (6.4-8.2); Sodium Level 138 mmol/L (136-145)
[2022-11-27 22:16] LABS: White Blood Cells 0-5 SEEN /hpf (0-5)
[2022-11-27 23:01] LABS: Bedside Glucose 425 mg/dL (74-106)
[2022-11-27] MEDS: Insulin Lispro 100 UNIT/ML INSULN.PEN 15 UNIT SC (23:30)
[2022-11-28 01:06] LABS: Bedside Glucose 266 mg/dL (74-106)
[2022-11-28 01:20] VITALS: BP 155/72; PULSE 89; RESP 18; O2SAT 100
== END 2022-11-28 01:38 | disposition home or self-care (01) ==
PROVIDERS: Emergency Provider Emergency Medicine; PCP Student in an Organized Health Care Education/Training Program; Visit Provider Emergency Medicine
DX: E11.65 Type 2 diabetes mellitus with hyperglycemia (principal); E11.40 Type 2 diabetes mellitus with diabetic neuropathy, unspecified; R11.0 Nausea; R19.7 Diarrhea, unspecified
CPT/HCPCS: 80053; 81001; 82009; 82962; 85025; 93005; 96360; 96361; 99284; J7030; A4216

== ENCOUNTER 2023-02-13 18:32 | Emergency (ER) | payer MEDICARE, SELFPAY ==
[2023-02-13 18:33] VITALS: BP 157/98; PULSE 99; RESP 18; TEMP 35.5; O2SAT 99; BMI 30.2
--- NOTE | 2023-02-13 19:28 | EKG12_ITS ---
Test Reason : SHOULDER PAIN Blood Pressure : / mmHG Vent. Rate : 101 BPM Atrial Rate : 101 BPM P-R Int : 144 ms QRS Dur : 074 ms QT Int : 318 ms P-R-T Axes : 050 005 041 degrees QTc Int : 412 ms Sinus tachycardia Otherwise normal ECG Confirmed by MEGAN REY, ERASTO ([id number]), editor map RHONA OWENS ([id number]) on 02/19/2023 9:13:48 AM Referred By: MALATHI Confirmed By:LINDA GUZMAN MD
[2023-02-13] MEDS: Aspirin 81 MG TAB.CHEW 324 MG PO (19:31)
[2023-02-13 19:44] LABS: Absolute Lymphocyte Count 1.38 X10^3/uL (0.83-4.51); Absolute Neutrophil Count 2.6 X10^3/uL (2.0-7.7); Basophil# 0.04 X10^3/uL; Basophil% 0.9 % (0-1); Eosinophil# 0.03 X10^3/uL; Eosinophils% 0.7 % (0-5); Hematocrit 37.1 % (37-47); Hemoglobin 11.4 g/dL (12.0-15.0); Lymphocyte # 1.38 X10^3/ul (0.83-4.51); Lymphocyte % 32.4 % (19-41); Mean Corp Hgb Conc 30.7 g/dL (32-36); Mean Corpuscular Hgb 26.8 pg (27.0-32.0); Mean Corpuscular Volume 87.3 fL (81-99); Mean Platelet Vol. 10.3 fl (6.2-12.0); Monocyte# 0.22 X10^3/uL; Monocyte% 5.2 % (0-10); NRBC Flagged by Analyzer 0 % (0-5); Neutrophil # 2.58 X10^3/uL (2.7-7.7); Neutrophil % 60.6 % (47-70); Platelet Count 291 K/mm3 (150-450); RBC Distribution Width CV 14.6 % (11.6-14.6); RBC Distribution Width SD 46.9 fl (35.1-43.9); Red Blood Count 4.25 M/mm3 (4.2-5.4); White Blood Count 4.3 K/mm3 (4.4-11.0)
--- NOTE | 2023-02-13 19:45 | RAD_ITS ---
STUDY: X-RAY CHEST REASON FOR EXAM: Female, 57 years old. chest pain TECHNIQUE: Frontal and lateral views of the chest. COMPARISON: 03/20/2022. FINDINGS: The lungs are clear and expanded. There is no demonstrated pleural abnormality. Normal size heart. Normal mediastinum and nikolay. Normal visualized pulmonary arteries. Normal visualized aortic arch and descending thoracic aorta. Normal visualized thoracic spine. Normal visualized ribs, clavicles, and shoulders. There is no demonstrated abnormality of the visualized soft tissue structures of the upper abdomen. RAD/Chest PA and Lateral IMPRESSION: Normal x-ray examination of the chest. Electronically Signed: Khurram Frank MD at 20:33 EDT ,
[2023-02-13 19:57] LABS: Anion Gap 4 (5-15); BUN 14 mg/dL (7-18); Calcium,Total 9.4 mg/dL (8.5-10.1); Chloride 106 mmol/L (98-107); Creatinine, Serum 1.55 mg/dL (0.55-1.02); EST Glomerular Filtration Rate 37 mL/min (>60); Est Glom Filt Rate - Afr Amer 44 mL/min (>60); Estimated Creatinine Clearance 34.58 ml/min; Glucose 347 mg/dL (74-106); Potassium 4.3 mmol/L (3.5-5.1); Sodium Level 139 mmol/L (136-145); Troponin-I HS 4 pg/mL (3.0-54.0)
--- NOTE | 2023-02-13 21:00 | EDS_ITS ---
HPI History of Present Illness Chief Complaint: Upper Extremity Injury Informant: patient Onset/Context/Timing Onset: Days (3) Activity at onset: sudden Timing: Continuous Quality: Positive for Aching Location: Left Chest and - (Left arm) Worsened By: Nothing Relieved By: Nothing Associated Symptoms: Negative for Nausea, Vomiting, Diaphoresis, Dyspnea, Cough, Fever, Lightheadedness, Acid Reflux or Palpitations Narrative CVD Risk Factors: Positive for Diabetes and Family History 1' </=55; Negative for Hypertension, Hypercholesterolemia or Smoking PE Risk Factors: Negative for Recent Travel/Surgery, Recent Immobilization, Prior DVT or PE, Cancer or OCP + Smoking + >/=35 PFSH PFSH Medical History (Updated 02/13/23 @ 21:[address] Catalino Lynch, DO) Arthritis Back problem Chronic headaches Neuropathy Pancreatitis Seasonal allergies Type 2 diabetes mellitus Home Medications rosuvastatin 40 mg tablet 40 mg PO DAILY 05/26/16 [History Last Taken 08/02/20] duloxetine 60 mg capsule,delayed release 60 mg PO DAILY 05/06/18 [History Last Taken 08/03/20] pregabalin 100 mg capsule 100 mg PO TID #90 caps 01/08/20 [Rx Last Taken 08/03/20] benazepril 10 mg tablet 5 mg (1/2 x 10 mg) PO DAILY #90 tabs 08/05/20 [Rx Last Taken 08/03/20] insulin glargine 100 unit/mL (3 mL) subcutaneous pen 43 units (0.43 mL) SQ QHS DM ##0 08/05/20 [Rx Last Taken 08/02/20] insulin lispro 100 unit/mL subcutaneous pen 15 unit (0.15 mL) SQ TIDCM ##1 08/05/20 [Rx Last Taken Unknown] insulin lispro 100 unit/mL subcutaneous pen See Protocol subcut ACHS 08/05/20 [Rx Last Taken Unknown] metformin 500 mg tablet 1,000 mg (2 x 500 mg) PO BIDAC DM ##0 08/05/20 [Rx Last Taken 08/03/20] meloxicam 15 mg DAILY 11/03/20 [History Last Taken Unknown] ondansetron 4 mg disintegrating tablet 4 mg PO Q8H PRN PRN Nausea #10 tabs 08/19/22 [Rx Last Taken Unknown] Allergy/AdvReac Type Severity Reaction Status Date / Time empagliflozin Allergy Unknown Unknown Verified 02/13/23 18:33 [From Jardiance] amoxicillin Allergy Itching Verified 02/13/23 18:33 dulaglutide [From Trulicity] Allergy Itching Verified 02/13/23 18:33 Family History Unknown Arthritis Diabetes Myocardial infarction Heart disease Hypertension Osteoporosis Severe allergic reaction Skin cancer Surgical History no surgical history no surgical history Social History household members: family Smoking Status: Never smoker alcohol intake: never substance use type: does not use what type of physical activity do you participate in: none ROS ROS ED Constitutional Constitutional ED: Denies chills or fever(s) Eyes Eyes: Denies blurry vision or change in vision ENT ENT ED: Denies rhinorrhea or sore throat Cardiovascular Cardiovascular: Reports chest pain; Denies palpitations Respiratory/Chest Respiratory/Chest: Denies cough or dyspnea Gastrointestinal Gastrointestinal: Denies nausea or vomiting Genitourinary Genitourinary ED: Denies dysuria or hematuria Musculoskeletal Musculoskeletal: Denies back pain or neck pain Integumentary Denies abscess or rash Neurologic Neurologic: Denies headache(s) or weakness Allergic/Immunologic Allergic/Immunologic ED: Denies mouth swelling or urticaria EXAM Physical Exam Const Vital Signs: 02/13/23 18:33 02/13/23 18:32 02/13/23 19:37 Temperature 96 F L Temperature Source Temporal Pulse Rate 99 Respiratory Rate 18 Respiratory Effort Normal Blood Pressure 157/98 H Blood Pressure Mean 117 Pulse Ox 99 Oxygen Delivery Method Room Air Room Air Positive well nourished and well developed General Appearance ED: well developed and NAD HEENT Reports moist mucous membranes Neck supple and no JVD Resp normal respiratory effort and clear to auscultation bilaterally Cardio regular rate and regular rhythm GI normal to inspection, nondistended, normoactive bowel sounds and non-tender Palpation: soft Extremity normal to inspection General Extremety ED: Negative for edema or tenderness General Extremity: Negative for edema Neuro oriented x3, CN's II-XII intact bilaterally and no sensory deficits noted Sensorium / Orientation: alert Motor Exam: strength 5/5 throughout Psych mental status grossly normal Skin no rashes or lesions noted Heart Score History: Slightly/Non-Suspicious ECG: Normal Age: >45 - <65 years Risk Factors: 1 or 2 Risk Factors Troponin: </= Normal Limit Score: 2 MDM MDM MDM Narrative Medical decision making narrative: Differential diagnosis includes cardiac dysrhythmia, cardiac ischemia, electrolyte abnormality, cervical radiculopathy, pneumonia, pneumothorax, anxiety, and musculoskeletal pain. EKG will be obtained to assess for cardiac dysrhythmia and cardiac ischemia. Chest x-ray will be obtained to assess for pneumonia and pneumothorax. CBC will be obtained to assess for leukocytosis and anemia. Basic metabolic profile will be obtained to assess for electrolyte abnormality and renal function. High-sensitivity troponin will be obtained to assess for cardiac ischemia. Lab Data Attestation: I reviewed the patient's lab results. Lab results narrative: CBC was reviewed. There is a slight anemia with a hemoglobin of 11.4. This is stable compared to previous results. Basic metabolic profile was reviewed. Creatinine was slightly elevated at 1.55. This is similar to prior results. Glucose was elevated at 347. Anion gap was normal. CO2 was normal. High- sensitivity troponin was reviewed and was normal at 4. Labs: Laboratory Results - last 24 hr 02/13/23 19:11 WBC 4.3 L RBC 4.25 Hgb 11.4 L Hct 37.1 MCV 87.3 MCH 26.8 L MCHC 30.7 L RDW Std Deviation 46.9 H RDW Coeff of [place] 14.6 Plt Count 291 MPV 10.3 Immature Gran % (Auto) 0.200 Neut % (Auto) 60.6 Lymph % (Auto) 32.4 [place] % (Auto) 5.2 Eos % (Auto) 0.7 Baso % (Auto) 0.9 Absolute Neuts (auto) 2.6 Absolute Lymphs (auto) 1.38 Nucleated RBC % 0 Sodium 139 Potassium 4.3 Chloride 106 Carbon Dioxide 29.0 Anion Gap 4 L BUN 14 Creatinine 1.55 H Estim Creat Clear Calc 34.58 Est GFR (MDRD) Af Amer 44 L Est GFR (MDRD) Non-Af 37 L BUN/Creatinine Ratio 9.0 L Glucose 347 H Calcium 9.4 Troponin I High Sens 4 Radiography Chest X-Ray - ED: 2 View, Read by ED Physician, Read by Radiologist and No Acute Disease Diagnostic Testing: Clinical Impression(s) from Imaging Studies Chest X-Ray 02/13/23 19:45 IMPRESSION: Normal x-ray examination of the chest. Electronically Signed: Khurram Frank MD at 20:33 EDT , PA and lateral chest x-ray was obtained. There are 2 views. On my independent interpretation, lung ramirez are clear. There is normal cardiac silhouette. Bony thorax is normal. There is no acute process noted. Radiologist also interpreted the x-ray and agrees. EKG Initial EKG: Attestation: I personally reviewed and interpreted this EKG as follows: Interpretation: Sinus Rhythm (101) and No Acute Injury Pattern Comments: EKG was obtained. On my independent interpretation, it showed a sinus tachycardia with a rate of 101. [place] interval, QRS interval, and QTc intervals were all normal. [place] was normal. There are no acute ST or T wave changes. Prior EKG tracings: available for review Prior: Unchanged (11/27/2022) Treatment and Re-Evaluation :: Patient was given aspirin here. Patient had no improvement of her pain after this. Patient was given a dose of [place]. Patient was advised of her findings. Patient has a HEART score of 2. Patient was advised that this is low risk for acute cardiac event. Patient was instructed to follow-up with her primary care physician in 5 to 7 days for further evaluation. Patient was instructed return if worse in any way. Patient and family understood and were agreeable with the plan. All questions were answered. Discharge Plan Triage Chief Complaint: Upper Extremity Injury Other Complaint: Chest Pain ED Provider: Catalino Lynch Dx/Rx/DC Orders Clinical Impression: Type 2 diabetes mellitus, Chest pain Instructions: ED Chest Pain, Uncertain Cause Prescriptions: No Action rosuvastatin 40 MG tablet 40 mg PO DAILY duloxetine 60 MG capsule,delayed release(DR/EC) 60 mg PO DAILY Patient Comments: TAKE ONE CAPSULE BY MOUTH ONCE A DAY DIRECTED insulin lispro 100 UNIT/ML insulin pen See Protocol SC ACHS 0RF Protocol: 3. Sliding Scale Insulin Med Dosing Condition: 150-189 mg/dl = 1 unit Condition: 190-229 mg/dl = 2 units Condition: 230-269 mg/dl = 3 units Condition: 270-309 mg/dl = 4 units Condition: 310-349 mg/dl = 5 units Condition: 350-399 mg/dl = 6 units Condition: 400-449 mg/dl = 7 units Condition: Greater than 449 call physician Protocol Text: - Use for Total Daily Dose of Insulin 37-55 units - Obsese, infected, or steroid patients MEDIUM DOSING ALGORITHIM metformin 500 MG tablet 1,000 mg PO BIDAC Qty: 0 0RF Rx Instructions: Hold for 5 days benazepril 10 mg tablet 5 mg PO DAILY Qty: 90 1RF insulin glargine 100 UNITS/ML insulin pen 43 units SQ QHS Qty: 0 0RF insulin lispro 100 UNIT/ML insulin pen 15 unit SQ TIDCM Qty: 1 2RF Rx Instructions: Hold if glucose less than 130 mg/dl meloxicam 15 MG tablet 15 mg DAILY ondansetron [ondansetron] 4 mg tablet,disintegrating 4 mg PO Q8H PRN PRN (Reason: Nausea) Qty: 10 0RF pregabalin 100 mg capsule 100 mg PO TID Qty: 90 0RF Primary Care Provider: Rod Chew Referrals: Rod Chew DO [Primary Care Provider] - 5-7 Days Disposition Disposition: Home, Self Care
[2023-02-13 21:32] VITALS: BP 156/89; PULSE 81; RESP 16; O2SAT 97
[2023-02-13] MEDS: HYDROcodone Bitartrate/Apap 5/325 Tablet PO (21:34)
== END 2023-02-13 21:38 | disposition home or self-care (01) ==
PROVIDERS: Emergency Provider Emergency Medicine; PCP Student in an Organized Health Care Education/Training Program; Visit Provider Emergency Medicine
DX: R07.9 Chest pain, unspecified (principal); E11.40 Type 2 diabetes mellitus with diabetic neuropathy, unspecified
CPT/HCPCS: 71046; 80048; 84484; 85025; 93005; 99285; A4216

== ENCOUNTER 2024-01-31 19:55 | Emergency (ER) | payer MEDICARE, MEDICAID, SELFPAY ==
[2024-01-31 19:57] VITALS: BP 166/88; PULSE 112; RESP 18; TEMP 35.5; O2SAT 99
--- NOTE | 2024-01-31 20:27 | ED.VIS.BACK ---
HPI History of Present Illness Chief Complaint: Back Informant: patient Narrative Narrative: 58-year-old female presents with low back pain that has been present for 1 week. She states she woke up with the pain. She denies any activities that she can think of including repetitive motions that could have resulted in this. It hurts more to move. She took Advil today but it did not help at all. She states the pain was severe today and she was crying. She is also had some urinary frequency lately, she had some watery nonbloody diarrhea for this past week but states it resolved and now it is gone. She denies having any abdominal pain, nausea, vomiting with any of this. No fevers or chills. She states she has had pain in the back like this before. She states he had an MRI and it was normal. She states none of the pain radiates down her legs, she has been able to walk without weakness or numbness, and she denies saddle anesthesia, bowel or bladder dysfunction. [facility] Medical History (Updated 01/31/24 @ 22:[address] Zaid Chacon MD) Pancreatitis Neuropathy Chronic headaches Type 2 diabetes mellitus Back problem Arthritis Seasonal allergies Home Medications ?Medication ?Instructions ?Recorded ?Last Taken ?Type rosuvastatin 40 mg tablet 40 mg PO DAILY 05/26/16 08/02/20 History duloxetine 60 mg capsule,delayed 60 mg PO DAILY 05/06/18 08/03/20 History release pregabalin 100 mg capsule 100 mg PO TID #90 caps 01/08/20 08/03/20 Rx benazepril 10 mg tablet 5 mg (1/2 x 10 mg) PO DAILY #90 08/05/20 08/03/20 Rx tabs insulin glargine 100 unit/mL (3 43 units SQ QHS DM ##0 08/05/20 08/02/20 Rx mL) subcutaneous pen insulin lispro 100 unit/mL 15 unit (0.15 mL) SQ TIDCM ##1 08/05/20 Unknown Rx subcutaneous pen insulin lispro 100 unit/mL See Protocol subcut ACHS 08/05/20 Unknown Rx subcutaneous pen metformin 500 mg tablet 1,000 mg (2 x 500 mg) PO BIDAC DM 08/05/20 08/03/20 Rx ##0 meloxicam 15 mg DAILY 11/03/20 Unknown History ondansetron 4 mg disintegrating 4 mg PO Q8H PRN PRN Nausea #10 tabs 08/19/22 Unknown Rx tablet cyclobenzaprine 10 mg tablet 10 mg PO TID PRN Muscle Spasm #15 01/31/24 Unknown Rx TABLETS hydrocodone-acetaminophen 5-325mg 1 tab PO Q6H 2 days #8 TABLETS 01/31/24 Unknown Rx 5mg-325mg nitrofurantoin 100 mg PO Q12 #10 CAPSULES 01/31/24 Unknown Rx monohydrate/macrocrystals 100 mg capsule Allergy/AdvReac Type Severity Reaction Status Date / Time empagliflozin (From Allergy Unknown Unknown Verified 01/31/24 19:56 Jardiance) amoxicillin Allergy Itching Verified 01/31/24 19:56 dulaglutide (From Trulicity) Allergy Itching Verified 01/31/24 19:56 Family History Unknown Arthritis Diabetes Myocardial infarction Heart disease Hypertension Osteoporosis Severe allergic reaction Skin cancer Social History household members: family Smoking Status: Never smoker alcohol intake: never substance use type: does not use what type of physical activity do you participate in: none ROS ROS ED Constitutional Constitutional ED: Denies chills or fever(s) Gastrointestinal Gastrointestinal: Denies abdominal pain, constipation, fecal incontinence, nausea or vomiting Genitourinary Genitourinary ED: Reports urinary frequency and other Details: no urinary retention ; Denies abdominal discomfort or urinary incontinence Musculoskeletal Musculoskeletal: Reports as per HPI and back pain; Denies neck pain Integumentary Denies rash or wounds Neurologic Neurologic: Denies headache(s), paresthesias or weakness EXAM Physical Exam Const Vital Signs: 01/31/24 19:57 Temperature 96 F L Temperature Source Temporal Pulse Rate 112 H Respiratory Rate 18 Blood Pressure 166/88 H Blood Pressure Mean 114 Pulse Ox 99 Oxygen Delivery Method Room Air Positive well nourished and well developed General Appearance ED: well developed and NAD HEENT Negative for trauma or tenderness Eyes PERRL and EOMs intact bilaterally Neck full ROM and supple GI normal to inspection, nondistended, normoactive bowel sounds, soft to palpation and non-tender Back/Spine normal to inspection Back/Spine Narrative: Pain and tenderness all across the back including the midline. Hurts more to move. Lumbar Spine / Lower Back: ROM limited, lumbar spinal tenderness, paraspinal muscle tenderness and straight leg raise negative bilaterally Extremity normal to inspection, full ROM and no pedal edema Neuro oriented x3 and no sensory deficits noted Sensorium / Orientation: alert Motor Exam: strength 5/5 throughout and clonus absent Deep Tendon Reflexes: Rt Patellar (L4): 2+, Lt Patellar (L4): 2+, Rt Ankle (S1): 2+ and Lt Ankle (S1): 2+ Deep Tendon Reflexes Back: Rt Patellar (L4): 2+, Lt Patellar (L4): 2+, Rt Ankle (S1): 2+ and Lt Ankle (S1): 2+ Plantar Reflex: Downgoing: bilateral Psych mental status grossly normal and thought process normal Skin no rashes or lesions noted and no wounds MDM MDM MDM Narrative Medical decision making narrative: Patient is relatively poor historian, I obtained lumbar x-rays in order to rule out occult compression fracture, urinalysis to evaluate for acute cystitis radiating pain to the back, although I think this is probably musculoskeletal pain even if she does have cystitis, and gave her a tramadol for the pain. This did not help. Will give her a dose of Norflex, the urine does show signs of infection with pyuria, I am sending a culture previous cultures all looked negative but the last one was 3 years ago. Will prescribe her a muscle relaxer advise continuing the NSAID and following up, she does not have a doctor anymore she [id number] PCP stop taking her insurance we will give her a list of doctors to choose from. Lab Data Attestation: I reviewed the patient's lab results. Labs: Laboratory Results - last 24 hr 01/31/24 20:58 Urine Color Straw Urine Clarity Sl. Cloudy Urine pH 6.0 Ur Specific [place] 1.020 Urine Protein 15 H Urine Glucose (UA) 1000 H Urine Ketones 5 H Urine Occult Blood Negative Urine Nitrite Negative Urine Bilirubin Negative Urine Urobilinogen Normal Ur Leukocyte Esterase 500 H Urine RBC 0-5 SEEN Urine WBC 5-10 SEEN Ur Squamous Epith Cells 0-5 SEEN Urine Bacteria 1+ Urine Mucus 0 SEEN Radiography Diagnostic Testing: Clinical Impression(s) from Imaging Studies Lumbar Spine X-Ray 01/31/24 21:05 IMPRESSION: Mild scoliosis and degenerative change. No acute fracture or other significant bony pathology Electronically Signed: Gelacio Baker MD at 21:57 EDT , Discharge Plan Triage Chief Complaint: Back ED Provider: Zaid Chacon Dx/Rx/DC Orders Clinical Impression: Musculoskeletal back pain, Acute cystitis without hematuria Instructions: ED Back Pain (Acute or Chronic), ED Cystitis Female Adult Prescriptions: New cyclobenzaprine 10 mg tablet 10 mg PO TID PRN (Reason: Muscle Spasm) Qty: 15 0RF nitrofurantoin monohyd/m-cryst 100 mg capsule 100 mg PO Q12 Qty: 10 0RF hydrocodone-acetaminophen 5-325 mg tablet 1 tab PO Q6H 2 Days Qty: 8 0RF No Action rosuvastatin 40 MG tablet 40 mg PO DAILY duloxetine 60 MG capsule,delayed release(DR/EC) 60 mg PO DAILY Patient Comments: TAKE ONE CAPSULE BY MOUTH ONCE A DAY DIRECTED insulin lispro 100 UNIT/ML insulin pen See Protocol SC ACHS 0RF Protocol: 3. Sliding Scale Insulin Med Dosing Condition: 150-189 mg/dl = 1 unit Condition: 190-229 mg/dl = 2 units Condition: 230-269 mg/dl = 3 units Condition: 270-309 mg/dl = 4 units Condition: 310-349 mg/dl = 5 units Condition: 350-399 mg/dl = 6 units Condition: 400-449 mg/dl = 7 units Condition: Greater than 449 call physician Protocol Text: - Use for Total Daily Dose of Insulin 37-55 units - Obsese, infected, or steroid patients MEDIUM DOSING ALGORITHIM metformin 500 MG tablet 1,000 mg PO BIDAC Qty: 0 0RF Rx Instructions: Hold for 5 days benazepril 10 mg tablet 5 mg PO DAILY Qty: 90 1RF insulin glargine 100 UNITS/ML insulin pen 43 units SQ QHS Qty: 0 0RF insulin lispro 100 UNIT/ML insulin pen 15 unit SQ TIDCM Qty: 1 2RF Rx Instructions: Hold if glucose less than 130 mg/dl meloxicam 15 MG tablet 15 mg DAILY ondansetron [ondansetron] 4 mg tablet,disintegrating 4 mg PO Q8H PRN PRN (Reason: Nausea) Qty: 10 0RF pregabalin 100 mg capsule 100 mg PO TID Qty: 90 0RF Primary Care Provider: Care Physician,No Primary Referrals: Rod Chew DO [Non-Staff] - 3-5 Days if not improving Print Language: Citizen Of [place] Disposition Disposition: Home, Self Care
[2024-01-31] MEDS: traMADol 50 MG Tablet PO (20:56)
--- NOTE | 2024-01-31 21:05 | RAD_ITS ---
STUDY: X-RAY - LUMBAR SPINE REASON FOR EXAM: Female, 58 years old. pain TECHNIQUE: 3 view(s) of the lumbar spine were obtained. COMPARISON: None FINDINGS: Normal lumbar lordosis. Mild dextroscoliosis or splinting secondary to muscle spasm. Grade 1 spondylolisthesis at L5-S1 No evidence for acute fracture or subluxation. No lytic or sclerotic bony lesions.. Narrowed L4-5 and L5-S1 disc spaces with endplate spurring. The soft tissue structures are unremarkable. RAD/Lumbar Spine 2 or 3 Views IMPRESSION: Mild scoliosis and degenerative change. No acute fracture or other significant bony pathology Electronically Signed: Gelacio Baker MD at 21:57 EDT ,
[2024-01-31 21:06] LABS: Mucous, Urine 0 SEEN /hpf (<or=2+)
[2024-01-31 21:19] LABS: Color, Urine Straw (Yellow); Glucose, Dipstick 1000 mg/dl (Normal); Ketone-Dipstick 5 mg/dl (Negative); Leukocyte Esterase-Dipstick 500 /ul (Negative); Nitrite-Dipstick Negative (Negative); Occult Blood-Urine Negative /ul (Negative); Protein-Dipstick 15 mg/dl (Negative); Urine Bilirubin Dipstick Negative (Negative); Urine Clarity Sl. Cloudy (Clear); Urine Urobilinogen Normal (Normal)
[2024-01-31 21:35] LABS: Squamous Epithelial Cells - UA 0-5 SEEN /hpf (5-10)
[2024-01-31 21:36] LABS: Bacteria 1+ /hpf (None Seen); Red Blood Cells-Urine 0-5 SEEN /hpf (0-5); White Blood Cells 5-10 SEEN /hpf (0-5)
[2024-01-31] MEDS: Orphenadrine 60 MG/2 ML Ampul IM (22:17)
[2024-01-31] MEDS: Nitrofurantoin Macrocrystals 100 MG Capsule PO (22:17)
[2024-01-31 22:55] VITALS: BP 177/86; PULSE 86; RESP 16; TEMP 36.2; O2SAT 98
== END 2024-01-31 22:56 | disposition home or self-care (01) ==
PROVIDERS: Emergency Provider Emergency Medicine; Visit Provider Emergency Medicine
DX: N30.00 Acute cystitis without hematuria (principal); E11.40 Type 2 diabetes mellitus with diabetic neuropathy, unspecified; R35.0 Frequency of micturition; R82.81 Pyuria; M54.9 Dorsalgia, unspecified
CPT/HCPCS: 36415; 72100; 81001; 87086; 87088; 96372; 99282

== ENCOUNTER → 2024-10-08 | Outpatient (CLI) | payer MEDICARE, SELFPAY ==
[2024-10-08 16:04] LABS: Absolute Lymphocyte Count 1.42 X10^3/uL (0.83-4.51); Absolute Neutrophil Count 4.7 X10^3/uL (2.0-7.7); Basophil# 0.07 X10^3/uL; Basophil% 1.1 % (0-1); Eosinophil# 0.03 X10^3/uL; Eosinophils% 0.5 % (0-5); Hematocrit 45.3 % (37-47); Hemoglobin 14.7 g/dL (12.0-15.0); Lymphocyte # 1.42 X10^3/ul (0.83-4.51); Lymphocyte % 21.7 % (19-41); Mean Corp Hgb Conc 32.5 g/dL (32-36); Mean Corpuscular Hgb 27.5 pg (27.0-32.0); Mean Corpuscular Volume 84.8 fL (81-99); Mean Platelet Vol. 10.7 fl (6.2-12.0); Monocyte# 0.34 X10^3/uL; Monocyte% 5.2 % (0-10); NRBC Flagged by Analyzer 0 % (0-5); Neutrophil # 4.67 X10^3/uL (2.7-7.7); Neutrophil % 71.2 % (47-70); Platelet Count 360 K/mm3 (150-450); RBC Distribution Width CV 13.7 % (11.6-14.6); RBC Distribution Width SD 42.2 fl (35.1-43.9); Red Blood Count 5.34 M/mm3 (4.2-5.4); White Blood Count 6.6 K/mm3 (4.4-11.0)
[2024-10-08 16:52] LABS: Cholesterol 277 mg/dL (<=200); High Density Lipoprotein 44 mg/dL; Low Density Lipoprotein Calc. 201 mg/dL; Triglycerides 163 mg/dL; Very Low Density Lipoprotein 33 mg/dL (5-40); Vitamin D,25 Hydroxy 27.8 ng/mL (30-100); cholesterol:hdl ratio screen 6.34
[2024-10-08 18:00] LABS: ALB/GLOB Ratio 1.4 RATIO (0.9-2.4); AST(SGOT) 18 U/L (<=31); Alanine Aminotransfer ALT/SGPT 19 U/L (<=34); Albumin, Serum 4.5 g/dL (3.5-5.0); Alkaline Phosphatase 145 U/L (35-104); Anion Gap 16 (5-15); BUN 23 mg/dL (4-19); BUN/Creat Ratio 27.4 RATIO (10-20); Calcium,Total 10.4 mg/dL (7.6-11.0); Carbon Dioxide 21.5 mmol/L (21.0-32.0); Chloride 100 mmol/L (98-108); Creatinine, Serum 0.83 mg/dL (0.70-1.20); EST Glomerular Filtration Rate 81 (>60); Globulin 3.3 g/dL (2.2-4.2); Glucose 330 mg/dL (70-99); Potassium 4.8 mmol/L (3.3-5.1); Protein, Total 7.8 g/dL (5.9-8.4); Sodium Level 137 mmol/L (133-145); Total Bilirubin 0.48 mg/dL (0.00-1.30)
== END | disposition home or self-care (01) ==
LOC: BIMLAB 11:50
PROVIDERS: PCP Physician Assistant; Referring Provider Physician Assistant; Visit Provider Physician Assistant
DX: I10 Essential (primary) hypertension (principal); E11.649 Type 2 diabetes mellitus with hypoglycemia without coma; Z79.4 Long term (current) use of insulin; E78.5 Hyperlipidemia, unspecified; E55.9 Vitamin D deficiency, unspecified
CPT/HCPCS: 36415; 80053; 80061; 82306; 85025

== ENCOUNTER → 2025-04-21 | Outpatient (CLI) | payer MEDICARE, SELFPAY ==
--- NOTE | 2025-04-21 14:46 | BD_ITS ---
PROCEDURE: DEXA BONE DENSITY STUDY N/A REASON FOR EXAM: POST MENOPAUSAL F, age 59 y/o . Postmenopausal. TECHNIQUE: Procedure Code: BDDBD Modality: DX Procedure: DEXA BONE DENSITY STUDY COMPARISON: None FINDINGS: BMD and T-SCORES Lumbar spine: 1.222 g/cm2, T-score 1.1 Levels: L1 through L4 Left femoral neck: 0.900 g/cm2, T-score 0.5 Femoral neck comparison data not recommended for monitoring change. Left total hip: 1.041 g/cm2, T-score 0.8 Right femoral neck: 0.962 g/cm2, T-score 1.0 Femoral neck comparison data not recommended for monitoring change. Right total hip: 1.109 g/cm2, T-score 1.4 The World Health Organization has defined the following categories based on bone density: Normal bone density: T-score equal to or greater than -1.0 Osteopenia: T-score between -1.0 and -2.5 Osteoporosis: T-score equal to or less than -2.5 FRAX (or Comparable) Fracture Risk Assessment: 10 Year Probability of Fracture: Major Osteoporotic Fracture: 5.7% Hip Fracture: 0.1% (Note: FRAX is not to be reported in setting of normal range bone density, osteoporosis on DEXA, known history of osteoporosis, prior osteoporotic hip or vertebral fracture, or for any patient undergoing pharmacological treatment for bone loss.) The National Osteoporosis Foundation (NOF) recommends pharmacological treatment for patients with a FRAX 10-year risk of 3% or higher for a hip fracture, or 20% or higher for a major osteoporotic fracture, to prevent osteoporosis and reduce fracture risk. The patient does not meet the pharmacological treatment recommendations for prevention of osteoporosis. BD/Dexa Bone Density Study IMPRESSION: NORMAL T-SCORES. Recommend follow-up as clinically warranted. Reading Location: [place] [id number]
--- NOTE | 2025-04-21 15:30 | BI_ITS ---
EXAM: SCRN MAMM (CAD)W/LAZARA BILAT DATE: 04/21/2025 CLINICAL HISTORY: F, Age 59 y/o , BREAST CANCER SCREENING No family history. TECHNIQUE: Procedure Code: BISMWCADBTOM Modality: MG Procedure: SCRN MAMM (CAD)W/LAZARA BILAT COMPARISON: Prior exam(s) dated August 06, 2017.. FINDINGS: TISSUE DENSITY: The breasts are heterogeneously dense, which may obscure small masses. Bilateral Breast Mammographic Findings: No significant masses, calcifications or other abnormalities are identified. No suspicious masses, areas of developing architectural distortion, or suspicious calcifications. There has been no significant interval change. BI/SCRN MAMM (CAD)W/LAZARA BILAT IMPRESSION: Stable bilateral screening mammogram. OVERALL FINAL ASSESSMENT BI-RADS 1: NEGATIVE. RECOMMENDATION: Routine annual follow-up in 1 Year Additional Recommendation none A letter with findings and recommendations will be mailed to the patient. Reading Location: [place] [address]
--- NOTE | 2025-04-21 15:30 | BI_ITS ---
EXAM: SCRN MAMM (CAD)W/LAZARA BILAT DATE: 04/21/2025 CLINICAL HISTORY: F, Age 59 y/o , BREAST CANCER SCREENING No family history. TECHNIQUE: Procedure Code: BISMWCADBTOM Modality: MG Procedure: SCRN MAMM (CAD)W/LAZARA BILAT COMPARISON: Prior exam(s) dated August 06, 2017.. FINDINGS: TISSUE DENSITY: The breasts are heterogeneously dense, which may obscure small masses. Bilateral Breast Mammographic Findings: No significant masses, calcifications or other abnormalities are identified. No suspicious masses, areas of developing architectural distortion, or suspicious calcifications. There has been no significant interval change. BI/SCRN MAMM (CAD)W/LAZARA BILAT IMPRESSION: Stable bilateral screening mammogram. OVERALL FINAL ASSESSMENT BI-RADS 1: NEGATIVE. RECOMMENDATION: Routine annual follow-up in 1 Year Additional Recommendation none A letter with findings and recommendations will be mailed to the patient. Reading Location: [place] [id number]
== END | disposition home or self-care (01) ==
PROVIDERS: PCP Internal Medicine; Referring Provider Internal Medicine; Visit Provider Internal Medicine
DX: Z12.31 Encounter for screening mammogram for malignant neoplasm of breast (principal); Z78.0 Asymptomatic menopausal state
CPT/HCPCS: 77063; 77067; 77080

== ENCOUNTER 2025-04-27 22:30 | Emergency (ER) | payer MEDICARE, SELFPAY ==
[2025-04-27 22:31] VITALS: BP 172/130; PULSE 88; RESP 16; TEMP 36.6; O2SAT 99; BMI 29.4
[2025-04-27 22:52] VITALS: BP 173/97; PULSE 111; RESP 18; O2SAT 97
[2025-04-27] MEDS: 0.9% Normal Saline (1000mL) 1,000 ML 999 ML IV (23:25)
[2025-04-27 23:28] LABS: Hematocrit 39.7 % (37-47); Hemoglobin 12.8 g/dL (12.0-15.0); Immature Granulocytes Count 0.020 X10^3/uL (0.0-0.0); Mean Corp Hgb Conc 32.2 g/dL (32-36); Mean Corpuscular Volume 86.1 fL (81-99); Mean Platelet Vol. 10.3 fl (6.2-12.0); NRBC Flagged by Analyzer 0 % (0-5); Platelet Count 314 K/mm3 (150-450); RBC Distribution Width CV 14.2 % (11.6-14.6); RBC Distribution Width SD 44.5 fl (35.1-43.9); Red Blood Count 4.61 M/mm3 (4.2-5.4); White Blood Count 7.9 K/mm3 (4.4-11.0)
[2025-04-27 23:32] LABS: Mucous, Urine 0 SEEN /hpf (<or=2+)
[2025-04-27 23:35] LABS: Color, Urine Straw (Yellow); Glucose, Dipstick 1000 mg/dl (Normal); Ketone-Dipstick Negative (Negative); Leukocyte Esterase-Dipstick Negative /ul (Negative); Nitrite-Dipstick Negative (Negative); Occult Blood-Urine Negative /ul (Negative); Protein-Dipstick Negative (Negative); Specific Gravity, Urine 1.010 (1.002-1.030); Urine Bilirubin Dipstick Negative (Negative)
[2025-04-27 23:43] LABS: Red Blood Cells-Urine 0-5 SEEN /hpf (0-5); Squamous Epithelial Cells - UA 0-5 SEEN /hpf (5-10)
[2025-04-27 23:55] LABS: BETA-HYDROXYBUTYRATE 0.0 mmol/L (0.0-0.3); Lipase 14 U/L (13-75)
[2025-04-27 23:58] LABS: AST(SGOT) 17 U/L (<=31); Alanine Aminotransfer ALT/SGPT 20 U/L (<=34); Albumin, Serum 4.1 g/dL (3.5-5.0); Alkaline Phosphatase 161 U/L (35-104); Anion Gap 13 (5-15); BUN 16 mg/dL (4-19); BUN/Creat Ratio 19.2 RATIO (10-20); Bilirubin, Direct 0.08 mg/dL (0.00-0.30); Calcium,Total 9.6 mg/dL (7.6-11.0); Carbon Dioxide 21.0 mmol/L (21.0-32.0); Chloride 98 mmol/L (98-108); Estimated Creatinine Clearance 73.66 ml/min (50-250); Globulin 2.8 g/dL (2.2-4.2); Glucose 649 mg/dL (70-99); Potassium 4.6 mmol/L (3.3-5.1)
[2025-04-28 00:01] LABS: Osmolality, Serum 314 mOsm/KG (275-295)
[2025-04-28 00:12] LABS: SITE Not entered; VBG BASE EXCESS 4 mmol/L (-1.0-3.5); VBG PO2 80 mmHg (25-40); VBG SO2 97 % (50-70); VBG TCO2 29 mmol/L (23-33)
[2025-04-28 00:31] VITALS: BP 174/91; PULSE 94; RESP 18; O2SAT 98
[2025-04-28] MEDS: 0.9% Normal Saline (1000mL) 1,000 ML 999 ML IV (00:40)
[2025-04-28 02:00] VITALS: BP 157/83; PULSE 87; RESP 17; O2SAT 92
[2025-04-28 02:09] VITALS: BP 157/83; PULSE 87; RESP 17; TEMP 36.6; O2SAT 96
== END 2025-04-28 02:24 | disposition home or self-care (01) ==
PROVIDERS: Emergency Provider Emergency Medicine; PCP Internal Medicine; Visit Provider Emergency Medicine
DX: E11.65 Type 2 diabetes mellitus with hyperglycemia (principal); E11.40 Type 2 diabetes mellitus with diabetic neuropathy, unspecified; Z79.4 Long term (current) use of insulin; B37.2 Candidiasis of skin and nail; I10 Essential (primary) hypertension; E78.5 Hyperlipidemia, unspecified; Z79.84 Long term (current) use of oral hypoglycemic drugs
CPT/HCPCS: 71046; 80048; 80076; 81001; 82010; 82803; 82962; 83690; 83930; 85025; 96361; 96372; 96374; 99284; A4216; J2405

== ENCOUNTER 2025-05-19 10:33 | Outpatient (RCR) | payer MEDICARE, SELFPAY | END 2025-06-07 23:59 | LOC: NS 10:33 | PROVIDERS: PCP Internal Medicine; Referring Provider Internal Medicine; Visit Provider Internal Medicine | DX: Z71.3 Dietary counseling and surveillance (principal); E11.649 Type 2 diabetes mellitus with hypoglycemia without coma; Z79.4 Long term (current) use of insulin | CPT/HCPCS: 97802 ==

== ENCOUNTER 2025-06-17 12:38 | Outpatient (RCR) | payer MEDICARE, SELFPAY | END 2025-07-08 23:59 | LOC: NS 12:38 | PROVIDERS: PCP Internal Medicine; Referring Provider Internal Medicine; Visit Provider Internal Medicine | DX: Z71.3 Dietary counseling and surveillance (principal); E11.649 Type 2 diabetes mellitus with hypoglycemia without coma; Z79.4 Long term (current) use of insulin | CPT/HCPCS: 97803 ==